=== PATIENT | male | born 1965 | race Caucasian/White ===

== ENCOUNTER 2018-06-17 20:41 | Inpatient (IN) ==
[2018-06-17] MEDS ORDERED: METOCLOPRAMIDE HCL INJ 5 MG/ML 2 ML VIAL IV STA (21:48)
[2018-06-17] MEDS ORDERED: DiphenhydrAMINE HCL 50 MG/ML VIAL IV STA (21:48)
[2018-06-17] MEDS ORDERED: KETOROLAC TROMETHAMINE 15 MG/ML VIAL IV STA (21:48)
[2018-06-17] MEDS ORDERED: SODIUM CHLORIDE 0.9% 1000ML 1,000 ML IV SCH (22:00)
[2018-06-17 22:12] LABS: Basophils # (auto) 0.01 K/uL (0-0.2); Basophils % (auto) 0.2 %; Eosinophils # (auto) 0.02 K/uL (0-0.5); Eosinophils % (auto) 0.4 %; Hematocrit (blood only) 39.9 % (42-52); Hemoglobin 14.1 g/dL (14.0-18.0); Immature Granulocytes # (auto) 0.01 K/uL (0.00-0.02); Immature Granulocytes % (auto) 0.2 %; Lymphocytes # (auto) 0.64 K/uL (1.2-3.4); Lymphocytes % (auto) 12.1 %; Mean Corpuscular Hgb Conc 35.3 g/dL (32-36); Mean Corpuscular Volume 92.1 fL (80-100); Monocytes # (auto) 0.38 K/uL (0.11-0.59); Monocytes % (auto) 7.2 %; Neutrophils # (auto) 4.23 K/uL (1.4-6.5); Neutrophils % (auto) 79.9 %; Platelet Count 142 K/uL (130-400); RDW Coefficient of Variation 12.4 % (11.5-14.5); RDW Standard Deviation 41.9 fL (36.4-46.3); Red Blood Count 4.33 M/uL (4.7-6.1); White Blood Count 5.29 K/uL (4.8-10.8)
[2018-06-17 22:31] LABS: Albumin Level 4.1 gm/dl (3.4-5.0); BUN Creatinine Ratio 12.3 (10-20); Calcium 9.3 mg/dl (8.5-10.1); Creatinine Clr Calc Pharmacy 123.5 ml/min; Est GFR (African American) 109.1; Est GFR (Non-African American) 94.2; Potassium 3.3 mmol/L (3.5-5.1)
[2018-06-17 22:34] LABS: Albumin Globulin Ratio 1.3 (0.9-2); Bilirubin,Total 0.5 mg/dl (0.2-1); Globulin 3.2 gm/dl (2.5-4.0); Total Protein 7.3 gm/dl (6.4-8.2)
[2018-06-17 22:51] LABS: Appearance Urine Clear (Clear); Bacteria Urine Automated Negative (Negative); Bilirubin Urine Negative (Negative); Blood Urine Trace (Negative); Cast Urine Automated 0 /lpf (0-5); Color Urine Yellow; Epithelial Cell Urine Auto 0-5 /lpf (0-5); Glucose Urine UA 3+ (Negative); Ketones Urine 1+ (Negative); Leukocyte Esterase Urine Negative (Negative); Nitrite Urine Negative (Negative); Protein Urine Negative (Negative); RBC Urine Automated 0-4 /hpf (0-4); Specific Gravity Urine 1.029 (1.000-1.030); Urobilinogen Urine Negative (Negative); WBC Urine Automated 0 /hpf (0-5)
[2018-06-17] MEDS ORDERED: IOVERSOL 100ml IV PRN (23:38)
[2018-06-18] MEDS ORDERED: ONDANSETRON INJ 2 MG/ML 2 ML VIAL IV PRN (02:53)
[2018-06-18] MEDS ORDERED: POTASSIUM CHLORIDE 10 MEQ TABCR PO STA (02:53)
[2018-06-18] MEDS ORDERED: GLUCOSE 40% GEL 15 GM TUBE PO PRN (03:00)
[2018-06-18] MEDS ORDERED: CARBOHYDRATES FOR HYPOGLYCEMIA PO PRN (03:00)
[2018-06-18] MEDS ORDERED: GLUCAGON FOR INJ 1 MG VIAL IM PRN (03:00)
[2018-06-18] MEDS ORDERED: GLUCOSE 10 TABS/TUBE PO PRN (03:00)
[2018-06-18] MEDS: HYDROmorphone INJ 0.5 MG/0.5 ML SYR IV PRN ×3 (03:00→15:02)
[2018-06-18] MEDS ORDERED: DEXTROSE 50% 50 ML SYRINGE IV PRN (03:00)
[2018-06-18] MEDS: SODIUM CHLORIDE 0.9% 1000ML 1,000 ML IV SCH ×3 (03:07→18:52)
--- NOTE | 2018-06-18 03:59 | Emergency Department Note ---
History of Present Illness General Chief complaint: Abdominal Pain Stated complaint: STOMACH AND BACK PAIN History of Present Illness Maximum Pain Intensity: 4 This 52-year-old presents to the ER complaining of abdominal pain and back pain Location: Abdomen and back Quality: Achy Severity: Moderate Duration: Past few months Timing: Started a few months ago Context: Pain got worse and patient came in Modifying factors: better with nothing; worse with activity Patient went to the family care doctor and was sent for colonoscopy. This was normal. Patient has an appointment next week to get CAT scan. Pain got worse and patient came in. Patient denies chest pain, dyspnea, fevers, vomiting, diarrhea, urinary problems. Home Medications Home Medications Medication Instructions Recorded Confirmed Type atorvastatin 20 mg PO HS 06/17/18 06/17/18 History empagliflozin [Jardiance] 10 mg PO DAILY 06/17/18 06/17/18 History glipizide 5 mg PO DAILY 06/17/18 06/17/18 History hyoscyamine sulfate 0.125 mg PO DIRECTED PRN 06/17/18 06/17/18 History valsartan-hydrochlorothiazide 1 tab PO DAILY 06/17/18 06/17/18 History Allergies Allergy/AdvReac Type Severity Reaction Status Date / Time Penicillins Allergy Severe Swelling Verified 06/17/18 23:50 of Lip/Tongue/Throat Sulfa (Sulfonamide Allergy Severe Swelling Verified 06/17/18 23:50 Antibiotics) of Lip/Tongue/Throat Torcan AdvReac Intermediate Muscle Pain Uncoded 06/17/18 23:50 Past Med/Surg History Medical History Diabetes Hypertension Surgical History Previous back surgery 2005 Social History Preferred Language: Spanish 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 Beliefs That Will Affect Care: None Current Living Situation: Spouse Other Information That Helps Us Care for You: No Feels Safe at Home: Yes Safety Concerns: Feels Safe At This Time Smoking Status: Unknown if ever smoked Hx Alcohol Use: Yes Hx Substance Use: No Review of Systems All systems reviewed & are unremarkable except as noted in HPI & below Physical Exam Vital Signs Vital Signs - 24 hr 06/17/18 21:06 06/17/18 22:28 06/17/18 23:28 Temperature 36.9 C Temperature Source Oral Sepsis Recent Fever Within 48 Hours No Sepsis New/Unexplained Change in Mental Status No Sepsis Action Taken by Nursing No Action Required Pulse Rate 93 H Pulse Rate [Apical] 74 Pulse Rate [Left Brachial] Pulse Rhythm Regular Pulse Rhythm [Left Brachial] Pulse Strength Normal Pulse Strength [Left Brachial] Respiratory Rate 20 18 Respiratory Effort / Characteristics Non-Labored Spontaneous Non-Labored Respiratory Depth Normal Normal Respiratory Pattern Regular Blood Pressure 178/104 H Blood Pressure [Left Arm] Blood Pressure [Right Arm] 143/74 H Blood Pressure Mean 128 Blood Pressure Mean [Left Arm] Blood Pressure Mean [Right Arm] 97 Blood Pressure Position Sitting Blood Pressure Position [Left Arm] Pulse Oximetry 97 97 98 Oxygen Delivery Method Room Air Room Air Room Air 06/18/18 00:42 06/18/18 02:11 06/18/18 03:21 Temperature 37.3 C Temperature Source Oral Sepsis Recent Fever Within 48 Hours Sepsis New/Unexplained Change in Mental Status Sepsis Action Taken by Nursing Pulse Rate Pulse Rate [Apical] 77 74 Pulse Rate [Left Brachial] 79 Pulse Rhythm Pulse Rhythm [Left Brachial] Regular Pulse Strength Pulse Strength [Left Brachial] Normal Respiratory Rate 18 18 16 Respiratory Effort / Characteristics Non-Labored Non-Labored Non-Labored Spontaneous Respiratory Depth Normal Normal Normal Respiratory Pattern Regular Blood Pressure Blood Pressure [Left Arm] 148/90 H Blood Pressure [Right Arm] 142/75 H 134/80 Blood Pressure Mean Blood Pressure Mean [Left Arm] 109 Blood Pressure Mean [Right Arm] 97 98 Blood Pressure Position Blood Pressure Position [Left Arm] Sitting Pulse Oximetry 97 98 98 Oxygen Delivery Method Room Air Room Air Room Air VITALS: Vitals are noted on the nurse's note and reviewed by myself. Vital signs stable. GENERAL: Pleasant male, in no acute distress, nondiaphoretic, well-developed well-nourished. SKIN: The skin was without rashes, erythema, edema, or bruising. There is no tenting of the skin. Capillary reflex less than 2 seconds. HEAD: Normocephalic atraumatic. EARS: External auditory canals clear, tympanic membranes pearly zepeda without erythema or effusion bilaterally. EYES: Pupils equal round and reactive to light and accommodation. Conjunctivae without injection, sclerae without icterus. Extraocular movements intact. NOSE: Patent, turbinates without inflammation or discharge. MOUTH: Mucous membranes moist. Pharynx without erythema or exudate. Uvula midline. Airway patent. Tongue does not deviate. NECK: Supple without nuchal rigidity. No lymphadenopathy. No thyromegaly. Cervical spine is nontender. No JVD. HEART: Regular rate and rhythm without murmurs gallops or rubs. LUNGS: Clear to auscultation bilaterally without wheezes, rales or rhonchi. No retractions or accessory muscle use. ABDOMEN: Positive bowel sounds x 4. Normal tympanic percussion. Soft, tender to palpation mid abdomen, without masses or organomegaly. Frazier sign negative. No guarding or rebound tenderness. No CVA tenderness MUSCULOSKELETAL: No muscle atrophy, erythema, or edema noted. NEURO: Patient was alert and oriented to person place and time. Normal sensation to light and sharp touch. No focal neurological deficits. Course Administered Medications Hydromorphone HCl (Dilaudid) 0.5 mg IV Q3H PRN PRN Reason: Pain Stop: 07/02/18 02:52 Last Admin: 06/18/18 03:00 Dose: 0.5 mg Documented by: [id number] Sodium Chloride (Nss 1000ml) 1,000 mls @ 125 mls/hr IV .Q8H DESTINEY Stop: 07/18/18 02:52 Last Admin: 06/18/18 03:07 Dose: 125 mls/hr Documented by: [id number] Discontinued Medications Diphenhydramine HCl (Benadryl) 25 mg IV NOW STA Stop: 06/17/18 21:49 Last Admin: 06/17/18 22:19 Dose: 25 mg Documented by: [id number] Sodium Chloride (Nss 1000ml) 1,000 mls @ 999 mls/hr IV .Q1H1M DESTINEY Stop: 06/17/18 23:00 Last Infusion: 06/17/18 23:26 Dose: 0 mls/hr Documented by: [id number] Admin: 06/17/18 22:19 Dose: 999 mls/hr Documented by: [id number] Ioversol (Optiray 320 100ml) 94 ml IV ONCE PRN PRN Reason: Interaction Checking Stop: 06/21/18 23:37 Last Admin: 06/17/18 23:38 Dose: 94 ml Documented by: [id number] Ketorolac Tromethamine (Toradol) 10 mg IV NOW STA Stop: 06/17/18 21:49 Last Admin: 06/17/18 22:19 Dose: 10 mg Documented by: [id number] Metoclopramide HCl (Reglan) 10 mg IV NOW STA Stop: 06/17/18 21:49 Last Admin: 06/17/18 22:19 Dose: 10 mg Documented by: [id number] Potassium Chloride (Klor-Con M10) 20 meq PO NOW STA Stop: 06/18/18 02:54 Last Admin: 06/18/18 03:07 Dose: 20 meq Documented by: [id number] Medical Decision Making Medical Records Attestation: I reviewed the patient's medical records. Home Medications Current Medication List: was personally reviewed by me Laboratory Data Attestation: I reviewed the patient's lab results. Result diagrams: 06/17/18 22:03 06/17/18 22:03 Lab Results 06/17/18 06/17/18 06/17/18 Range/Units 22:03 22:03 22:05 WBC 5.29 (4.8-10.8) K/uL RBC 4.33 L (4.7-6.1) M/uL Hgb 14.1 (14.0-18.0) g/dL Hct 39.9 L (42-52) % MCV 92.1 (80-100) fL MCH 32.6 (25-34) pg MCHC 35.3 (32-36) g/dL RDW Std Deviation 41.9 (36.4-46.3) fL RDW Coeff of Lilia 12.4 (11.5-14.5) % Plt Count 142 (130-400) K/uL MPV 10.0 (7.4-10.4) fL Immature Gran % (Auto) 0.2 % Neut % (Auto) 79.9 % Lymph % (Auto) 12.1 % [place] % (Auto) 7.2 % Eos % (Auto) 0.4 % Baso % (Auto) 0.2 % Immature Gran # (Auto) 0.01 (0.00-0.02) K/uL Neut # (Auto) 4.23 (1.4-6.5) K/uL Lymph # (Auto) 0.64 L (1.2-3.4) K/uL Valencia # (Auto) 0.38 (0.11-0.59) K/uL Eos # (Auto) 0.02 (0-0.5) K/uL Baso # (Auto) 0.01 (0-0.2) K/uL Sodium 137 (136-145) mmol/L Potassium 3.3 L (3.5-5.1) mmol/L Chloride 103 (98-107) mmol/L Carbon Dioxide 24 (21-32) mmol/L Anion Gap 10.0 (3-11) BUN 12 (7-18) mg/dl Creatinine 0.94 (0.6-1.4) mg/dl Est Cr Clr Drug Dosing 123.5 ml/min Est GFR ( Amer) 109.1 Est GFR (Non-Af Amer) 94.2 BUN/Creatinine Ratio 12.3 (10-20) Glucose 147 H (70-99) mg/dl Calcium 9.3 (8.5-10.1) mg/dl Magnesium 2.0 (1.8-2.4) mg/dl Total Bilirubin 0.5 (0.2-1) mg/dl AST 30 (15-37) U/L ALT 52 (12-78) U/L Alkaline Phosphatase 96 (45-117) U/L Total Creatine Kinase 497 H (39-308) U/L Total Protein 7.3 (6.4-8.2) gm/dl Albumin 4.1 (3.4-5.0) gm/dl Globulin 3.2 (2.5-4.0) gm/dl Albumin/Globulin Ratio 1.3 (0.9-2) Lipase 284 (73-393) U/L Urine Color Yellow Urine Appearance Clear (Clear) Urine pH 5.0 (4.5-7.5) Ur Specific [place] 1.029 (1.000-1.030) Urine Protein Negative (Negative) Urine Glucose (UA) 3+ H (Negative) Urine Ketones 1+ H (Negative) Urine Blood Trace H (Negative) Urine Nitrite Negative (Negative) Urine Bilirubin Negative (Negative) Urine Urobilinogen Negative (Negative) Ur Leukocyte Esterase Negative (Negative) Urine WBC (Auto) 0 (0-5) /hpf Urine RBC (Auto) 0-4 (0-4) /hpf U Hyaline Cast (Auto) 0 (0-5) /lpf U Epithel Cells (Auto) 0-5 (0-5) /lpf Urine Bacteria (Auto) Negative (Negative) Ethyl Alcohol mg/dL (0-3) mg/dl 06/17/18 Range/Units 22:47 WBC (4.8-10.8) K/uL RBC (4.7-6.1) M/uL Hgb (14.0-18.0) g/dL Hct (42-52) % MCV (80-100) fL MCH (25-34) pg MCHC (32-36) g/dL RDW Std Deviation (36.4-46.3) fL RDW Coeff of Lilia (11.5-14.5) % Plt Count (130-400) K/uL MPV (7.4-10.4) fL Immature Gran % (Auto) % Neut % (Auto) % Lymph % (Auto) % [place] % (Auto) % Eos % (Auto) % Baso % (Auto) % Immature Gran # (Auto) (0.00-0.02) K/uL Neut # (Auto) (1.4-6.5) K/uL Lymph # (Auto) (1.2-3.4) K/uL Valencia # (Auto) (0.11-0.59) K/uL Eos # (Auto) (0-0.5) K/uL Baso # (Auto) (0-0.2) K/uL Sodium (136-145) mmol/L Potassium (3.5-5.1) mmol/L Chloride (98-107) mmol/L Carbon Dioxide (21-32) mmol/L Anion Gap (3-11) BUN (7-18) mg/dl Creatinine (0.6-1.4) mg/dl Est Cr Clr Drug Dosing ml/min Est GFR ( Amer) Est GFR (Non-Af Amer) BUN/Creatinine Ratio (10-20) Glucose (70-99) mg/dl Calcium (8.5-10.1) mg/dl Magnesium (1.8-2.4) mg/dl Total Bilirubin (0.2-1) mg/dl AST (15-37) U/L ALT (12-78) U/L Alkaline Phosphatase (45-117) U/L Total Creatine Kinase (39-308) U/L Total Protein (6.4-8.2) gm/dl Albumin (3.4-5.0) gm/dl Globulin (2.5-4.0) gm/dl Albumin/Globulin Ratio (0.9-2) Lipase (73-393) U/L Urine Color Urine Appearance (Clear) Urine pH (4.5-7.5) Ur Specific [place] (1.000-1.030) Urine Protein (Negative) Urine Glucose (UA) (Negative) Urine Ketones (Negative) Urine Blood (Negative) Urine Nitrite (Negative) Urine Bilirubin (Negative) Urine Urobilinogen (Negative) Ur Leukocyte Esterase (Negative) Urine WBC (Auto) (0-5) /hpf Urine RBC (Auto) (0-4) /hpf U Hyaline Cast (Auto) (0-5) /lpf U Epithel Cells (Auto) (0-5) /lpf Urine Bacteria (Auto) (Negative) Ethyl Alcohol mg/dL < 3.0 (0-3) mg/dl Imaging Data Attestation: I personally reviewed and interpreted this imaging study as follo ws: [facility] Narrative Prior records/ancillary studies reviewed. Triage Nursing notes reviewed. Additional history obtained from family. The patient's history was concerning for abdominal pain. Differential diagnosis: Etiologies such as appendicitis, diverticulitis, PUD, biliary pathology, UTI, pancreatitis, obstruction, mesenteric ischemia, aortic pathology, infections, inflammatory bowel disease, renal colic, as well as others were entertained. Physical examination findings: As above. ER treatment provided: IV fluids, Reglan, Benadryl, Toradol On reassessment the patient felt better. Diagnostics interpreted by me: The labs revealed stable H&H. Normal lipase Imaging studies: CT ABDOMEN & PELVIS With Contrast: Irregular low attenuation in the pancreatic body measuring approximately 4.5 x 4.7 cm, suspicious for mass versus pancreatitis related fluid collection. Atrophic appearing pancreatic tail. There is associated attenuation of the portal venous confluence. Mild nonspecific mesenteric and retroperitoneal stranding and trace fluid. Multiple hazy nodular densities most prominent at the anterior abdomen, concern ing for malignant etiology. Heterogeneous liver parenchyma with mild perihepatic stranding/fluid. Fluid in small bowel loops, possible enteritis in the appropriate clinical setting. Areas of mild colonic wall thickening may be related to underdistention. Normal caliber appendix. Umbilical hernia containing fat with mild stranding/fluid. Mild splenomegaly Small hydroceles. Bibasilar atelectatic changes. Radiologist: Natividad Hahn M.D. Consultation: A consultation was placed with the hospitalist. The case was discussed and diagnostics were reviewed. The patient was evaluated in the ER for further treatment. Exam and history seem consistent with pancreatic mass concerning for cancer. Pa faizan is agreeable to treatment plan of admission. Medicine was consulted. Lipase was normal. Stable H&H. By the evaluation outlined above emergent etiologies such as appendicitis, diverticulitis, PUD, biliary pathology, UTI, pancreatitis, obstruction, mesenteric ischemia, aortic pathology, infections, inflammatory bowel disease, renal colic, as well as others were deemed relatively unlikely. The pt informed about the findings as listed above. All questions were answered and pleased with the treatment. Case reviewed with my attending The chart was completed utilizing [employer] Speech voice recognition software. Grammatical errors, random word insertions, pronoun errors, and incomplete sentences are an occassional consequence of this system due to software limitations, ambient noise, and hardware issues. Any formal questions or concerns about the content, text, or information contained within the body of this dictation should be directly addressed to the physician assistant kitchen manager for clarification. Impression & Plan Mass of pancreas Discharge Plan Visit Data *Final* Discharge Date/Time: 06/18/18 02:27 Chief Complaint: Abdominal Pain Stated Complaint: STOMACH AND BACK PAIN ED Provider: [facility] Midlevel Provider: Tierney Fan Discharge Problem: Mass of pancreas Patient Disposition: Admitted As Inpatient Discharge Instructions Interventions: ED Discharge Assessment Last Done: 06/18/18 02:27
[2018-06-18] MEDS: INSULIN ASPART 100 UNITS/ML 3 ML PEN SC SCH ×4 (06:11→20:21)
--- NOTE | 2018-06-18 06:44 | CT Scan Report ---
CT abd pelvis IV con only CT DOSE: 1111.25 mGy.cm HISTORY: Pain. Nausea. mid abd pain TECHNIQUE: Multiaxial CT images of the abdomen and pelvis were performed following the use of intrave nous contrast. A dose lowering technique was utilized adhering to the principles of ALARA. COMPARISON STUDY: None. FINDINGS: Lung bases are clear.. Liver and spleen are uniform. There is an irregular mass within the mid pancreatic body measuring 4.5 x 5.0 cm. This is suspect for neoplasm versus focal pancreatitis. Several mildly thickened loops of small bowel anterior aspect of the superior central abdominal regio n. Kidneys negative for hydronephrosis. No abnormal renal calcifications are present. Bowel pattern is nonobstructive. Findings of mild chronic descending and proximal sigmoid diverticulo sis. IMPRESSION: 1. Mid pancreatic infiltrative mass versus focal mid pancreatic body pancreatitis. 2. Probable reactive thickening of several surrounding loops of small bowel versus superimposed enter itis. 3. All major arterial structures appear patent. 4. Several omental nodes which may be reactive. Bladder is midline. 5. Diagnostic considerations include pancreatic neoplasm versus focal mid body pancreatitis. The above report was generated using voice recognition software. It may contain grammatical, syntax or spelling errors. Electronically signed by: Mich Hanna M.D. 06/18/2018 6:42 AM
[2018-06-18 07:39] LABS: Basophils # (auto) 0.01 K/uL (0-0.2); Basophils % (auto) 0.3 %; Eosinophils # (auto) 0.01 K/uL (0-0.5); Eosinophils % (auto) 0.3 %; Hematocrit (blood only) 40.3 % (42-52); Hemoglobin 13.9 g/dL (14.0-18.0); Immature Granulocytes # (auto) 0.01 K/uL (0.00-0.02); Immature Granulocytes % (auto) 0.3 %; Lymphocytes # (auto) 0.56 K/uL (1.2-3.4); Lymphocytes % (auto) 15.4 %; Mean Corpuscular Hgb Conc 34.5 g/dL (32-36); Mean Corpuscular Volume 94.2 fL (80-100); Mean Platelet Volume 9.9 fL (7.4-10.4); Monocytes # (auto) 0.29 K/uL (0.11-0.59); Neutrophils # (auto) 2.76 K/uL (1.4-6.5); Neutrophils % (auto) 75.7 %; Platelet Count 128 K/uL (130-400); RDW Coefficient of Variation 12.8 % (11.5-14.5); RDW Standard Deviation 43.5 fL (36.4-46.3); Red Blood Count 4.28 M/uL (4.7-6.1); White Blood Count 3.64 K/uL (4.8-10.8)
[2018-06-18 08:05] LABS: Estimated Average Glucose 171 mg/dl; Hemoglobin A1C 7.6 % (4.5-5.6)
[2018-06-18 08:10] LABS: BUN Creatinine Ratio 11.2 (10-20); Calcium 8.7 mg/dl (8.5-10.1); Creatinine Clr Calc Pharmacy 127.7 ml/min; Est GFR (Non-African American) 99.2; Potassium 3.3 mmol/L (3.5-5.1)
--- NOTE | 2018-06-18 08:57 | History and Physical Report ---
DATE OF ADMISSION: 06/18/2018 CHIEF COMPLAINT: Abdominal pain. HISTORY OF PRESENT ILLNESS: This is a 52-year-old male with past medical history significant for hyperlipidemia, diabetes, hypertension, presents with severe abdominal pain. He states his abdominal pain going on for last couple of months. It was thought to be from his diabetic medications, but it was not getting better. He came to the ER today. Imaging studies showed some pancreatic mass and anterior abdominal nodular densities. With the pain medication, the pain is controlled now. Denies any nausea, vomiting. No diarrhea, no constipation. No melena or hematochezia. Normal bladder movements. No hematuria. Denies any headaches. No earache. No blurred vision, no runny nose, no sore throat, no difficulty swallowing. Appetite is okay. No recent weight gain, weight loss. No night sweating, no chest pain, no shortness of breath, no cough, no fever, no chills. No swelling of the extremities, no rash. Currently resting comfortably and hemodynamically stable. ALLERGIES: PENICILLIN, SULFA ANTIBIOTICS AND TORCAN. PAST MEDICAL HISTORY: As mentioned above. PAST SURGICAL HISTORY: Colonoscopy, spine surgery. MEDICATIONS: The patient is on Levsin 0.125 mg 1 tablet t.i.d., Bentyl 10 mg p.o. q.4 hours p.r.n., Jardiance 10 mg p.o. daily, glipizide 5 mg b.i.d., Lipitor 20 mg p.o. daily, valsartan/hydrochlorothiazide 160/25 mg 1 tablet daily. FAMILY HISTORY: No family history on file. SOCIAL HISTORY: . No smoking, alcohol, social drinker. No drug use. REVIEW OF SYMPTOMS: As per HPI. Rest of review of symptoms negative. PHYSICAL EXAMINATION: GENERAL: The patient is moderate built. The patient is obese, not in acute distress. VITAL SIGNS: Temperature 36.9, pulse 74, respiratory rate 18, blood pressure 134/80, oxygen 98% room air. HEENT: No pallor, no icterus. Pupils equal, round, and reactive to light. NECK: No JVD. No neck masses, no carotid bruit. CARDIOVASCULAR: S1, S2 heard, regular rate and rhythm, no murmur, no gallop. RESPIRATORY SYSTEM: Normal AP diameter. No accessory muscle use. No wheezing, no crackles. ABDOMEN: Soft, bowel sounds present. Mild epigastric discomfort. No guarding, no rigidity. No distention. CENTRAL NERVOUS SYSTEM: Cranial nerves II-XII grossly intact. Nonfocal. EXTREMITIES: No edema, erythema. LABORATORY DATA: WBC 5.2, hemoglobin 14.1, hematocrit 39.9, platelets 142. Sodium 137, potassium 3.3, chloride 103, bicarbonate 24, BUN 12, creatinine 0.9, serum glucose 147, calcium 9.3, magnesium 2, total bilirubin 0.5, AST 30, ALT 52, alkaline phosphatase 96, total creatinine kinase 497. Lipase 284. Urinalysis positive for ketones, . CT of the abdomen and pelvis,Mid pancreatic infiltrative mass vs focal mid pancreatic body pancreatitis Several omental nodes which may be reactive ASSESSMENT AND PLAN: This is a 52-year-old male who presents with abdominal pain. 1. Abdominal pain, going on for last 2 months CAT scan showing suspicious for mass versus pancreatic mid body pancreatitis. Omental nodes could be reactive. We will admit to medical floor. Pain control, n.p.o., IV fluids. Consult GI and also consult surgery for further recommendations for any biopsy. 2. Diabetes. Hold his home medication.Place on ISS. Currently, we will keep him n.p.o. for procedures. 3. Hypertension. Continue his valsartan/hydrochlorothiazide and monitor his blood pressure. 4. Hyperlipidemia. Holding statin for now. 5. Deep venous thrombosis prophylaxis, SCDs. DISPOSITION: Admit to medical floor. Level 1 full code. MTDD
[2018-06-18] MEDS: hydroCHLOROthiazide 25 MG TAB PO SCH (08:58)
[2018-06-18] MEDS: VALSARTAN 80 MG TAB PO SCH (08:58)
[2018-06-18] MEDS: ACETAMINOPHEN 325 MG TAB PO PRN ×2 (10:33→18:33)
--- NOTE | 2018-06-18 11:22 | Gastrointestinal Consultation ---
Date of Consultation June 18, 2018 Assessment & Plan (1) Mass of pancreas: 52 year old male w/ upper abdominal and back pain x 1 month, CT completed through the ED concerning for infiltrative mass versus focal mid pancreatic body pancreatitis. He has normal LFTs and lipase. DDX discussed, all questions answered - MRI abd w/ MRCP sequence today - Can have diet after MRCP - Pending results will arrange IP vs OP EUS w/ FNA - Analgesia PRN - Antiemeics PRN - Consider LR as maintenace fluids Thank you for allowing us to participate in the care of this patient. Please call with any acute changes, questions or concerns. Please see addendum below with additional recommendation from my supervising physician. Present on Admission?: No Supervising Physician Co-Signing Physician Notes I have seen and examined the patient and discussed the management with TANIKA Chairez. I agree with her assessment and plan in its entirety. History of Present Illness Reason for Consultation: ?panc mass Requesting Physician: Manuela Attending Physician: Norbert Roy MD History of Present Illness 52 year old male with history of newly diagnosed T2DM, HTN, dyslipidemia who presented to the Ed for worsening abdominal pain. Pt was seen and evaluated, chart reviewed. at bedside. Has had upper abdominal apin and back pain x 1 month. Undergoing OP GI workup which was inconclusive. Explains pain as constant. Mild in the AM. As the day progressive the pain is more severe. Explained as a pressure but sharp. no nausea, vomiting. No change in appetite. No change in bowels. No weightloss Was referred to GI - evaluated 06/14 who had planned for a CT scan. On arrival he was afebrile, without leukocytosis. H&H stable w/ normal PLT count. LFTs and lipase were unremarkable. CT: Mid pancreatic infiltrative mass versus focal mid pancreatic body pancreatitis.Probable reactive thickening of several surrounding loops of small bowel versus superimposed enteritis. All major arterial structures appear patent.Several omental nodes which may be reactive. Bladder is midline. Diagnostic considerations include pancreatic neoplasm versus focal mid body pancreatitis. EGD none Colonoscopy: hemorrhiods otherwise negative Allergies Allergy/AdvReac Type Severity Reaction Status Date / Time Penicillins Allergy Severe Swelling Verified 06/17/18 23:50 of Lip/Tongue/Throat Sulfa (Sulfonamide Allergy Severe Swelling Verified 06/17/18 23:50 Antibiotics) of Lip/Tongue/Throat Torcan AdvReac Intermediate Muscle Pain Uncoded 06/17/18 23:50 Home Medications Home Medications Medication Instructions Recorded Confirmed Type atorvastatin 20 mg PO HS 06/17/18 06/17/18 History empagliflozin [Jardiance] 10 mg PO DAILY 06/17/18 06/17/18 History glipizide 5 mg PO DAILY 06/17/18 06/17/18 History hyoscyamine sulfate 0.125 mg PO DIRECTED PRN 06/17/18 06/17/18 History valsartan-hydrochlorothiazide 1 tab PO DAILY 06/17/18 06/17/18 History Patient History Medical History Diabetes Hypertension Surgical History Previous back surgery 2005 Social History Preferred Language: Jordanian Machine Cage Maker Required: No Beliefs That Will Affect Care: None Current Living Situation: Spouse Other Information That Helps Us Care for You: No Feels Safe at Home: Yes Safety Concerns: Feels Safe At This Time Smoking Status: Unknown if ever smoked Hx Alcohol Use: Yes Hx Substance Use: No Review of Systems Constitutional: no fever, no body aches, no weakness and no weight loss Respiratory: no cough, no dyspnea, no pain on inspiration and no wheezing Cardiovascular: no chest pain, no radiating jaw, neck or arm pain, no dyspnea on exertion and no palpitations Gastrointestinal: + abdominal pain; no belching, no early satiety, no heartburn, no nausea, no vomiting, no coffee ground emesis, no hematemesis, no dysphagia, no cramping, no change in bowel habits and no melena Physical Exam Constitutional: WD/WN, vitals as above well developed; no acute distress Respiratory: normal respiratory effort, lungs clear to auscultation Cardiovascular: RRR, no murmur, no edema Gastrointestinal (Abdomen): Percussion/Palpation: + abdomen tender and abdomen soft; no guarding, abdomen not rigid and no abdominal mass Skin: no rashes, warm and dry Results & Data Vital Signs (Past 12 Hours) Vital Signs Temp Pulse Pulse Resp BP BP Pulse Ox 06/18/18 07:10 37.1 C 82 18 128/76 98 06/18/18 03:21 37.3 C 79 16 148/90 H 98 06/18/18 02:11 74 18 134/80 98 06/18/18 00:42 77 18 142/75 H 97 06/17/18 23:28 74 18 143/74 H 98 Laboratory Results 06/18/18 06/18/18 06/18/18 Range/Units 07:15 07:15 07:15 WBC 3.64 L (4.8-10.8) K/uL RBC 4.28 L (4.7-6.1) M/uL Hgb 13.9 L (14.0-18.0) g/dL Hct 40.3 L (42-52) % MCV 94.2 (80-100) fL MCH 32.5 (25-34) pg MCHC 34.5 (32-36) g/dL RDW Std Deviation 43.5 (36.4-46.3) fL RDW Coeff of Lilia 12.8 (11.5-14.5) % Plt Count 128 L (130-400) K/uL MPV 9.9 (7.4-10.4) fL Immature Gran % (Auto) 0.3 % Neut % (Auto) 75.7 % Lymph % (Auto) 15.4 % [place] % (Auto) 8.0 % Eos % (Auto) 0.3 % Baso % (Auto) 0.3 % Immature Gran # (Auto) 0.01 (0.00-0.02) K/uL Neut # (Auto) 2.76 (1.4-6.5) K/uL Lymph # (Auto) 0.56 L (1.2-3.4) K/uL [place] # (Auto) 0.29 (0.11-0.59) K/uL Eos # (Auto) 0.01 (0-0.5) K/uL Baso # (Auto) 0.01 (0-0.2) K/uL Sodium (136-145) mmol/L Potassium (3.5-5.1) mmol/L Chloride (98-107) mmol/L Carbon Dioxide (21-32) mmol/L Anion Gap (3-11) BUN (7-18) mg/dl Creatinine (0.6-1.4) mg/dl Est Cr Clr Drug Dosing ml/min Est GFR ( Amer) Est GFR (Non-Af Amer) BUN/Creatinine Ratio (10-20) Glucose (70-99) mg/dl POC Glucose (70-99) Estimat Average Glucose 171 mg/dl Hemoglobin A1c 7.6 H (4.5-5.6) % Calcium (8.5-10.1) mg/dl Magnesium 2.1 (1.8-2.4) mg/dl Total Bilirubin (0.2-1) mg/dl AST (15-37) U/L ALT (12-78) U/L Alkaline Phosphatase (45-117) U/L Total Creatine Kinase (39-308) U/L Total Protein (6.4-8.2) gm/dl Albumin (3.4-5.0) gm/dl Globulin (2.5-4.0) gm/dl Albumin/Globulin Ratio (0.9-2) Lipase (73-393) U/L Urine Color Urine Appearance (Clear) Urine pH (4.5-7.5) Ur Specific [place] (1.000-1.030) Urine Protein (Negative) Urine Glucose (UA) (Negative) Urine Ketones (Negative) Urine Blood (Negative) Urine Nitrite (Negative) Urine Bilirubin (Negative) Urine Urobilinogen (Negative) Ur Leukocyte Esterase (Negative) Urine WBC (Auto) (0-5) /hpf Urine RBC (Auto) (0-4) /hpf U Hyaline Cast (Auto) (0-5) /lpf U Epithel Cells (Auto) (0-5) /lpf Urine Bacteria (Auto) (Negative) Ethyl Alcohol mg/dL (0-3) mg/dl 06/18/18 06/18/18 06/17/18 Range/Units 07:15 06:10 22:47 WBC (4.8-10.8) K/uL RBC (4.7-6.1) M/uL Hgb (14.0-18.0) g/dL Hct (42-52) % MCV (80-100) fL MCH (25-34) pg MCHC (32-36) g/dL RDW Std Deviation (36.4-46.3) fL RDW Coeff of Lilia (11.5-14.5) % Plt Count (130-400) K/uL MPV (7.4-10.4) fL Immature Gran % (Auto) % Neut % (Auto) % Lymph % (Auto) % [place] % (Auto) % Eos % (Auto) % Baso % (Auto) % Immature Gran # (Auto) (0.00-0.02) K/uL Neut # (Auto) (1.4-6.5) K/uL Lymph # (Auto) (1.2-3.4) K/uL [place] # (Auto) (0.11-0.59) K/uL Eos # (Auto) (0-0.5) K/uL Baso # (Auto) (0-0.2) K/uL Sodium 138 (136-145) mmol/L Potassium 3.3 L (3.5-5.1) mmol/L Chloride 107 (98-107) mmol/L Carbon Dioxide 23 (21-32) mmol/L Anion Gap 8.0 (3-11) BUN 10 (7-18) mg/dl Creatinine 0.90 (0.6-1.4) mg/dl Est Cr Clr Drug Dosing 127.7 ml/min Est GFR ( Amer) 115.0 Est GFR (Non-Af Amer) 99.2 BUN/Creatinine Ratio 11.2 (10-20) Glucose 115 H (70-99) mg/dl POC Glucose 125 H (70-99) Estimat Average Glucose mg/dl Hemoglobin A1c (4.5-5.6) % Calcium 8.7 (8.5-10.1) mg/dl Magnesium (1.8-2.4) mg/dl Total Bilirubin (0.2-1) mg/dl AST (15-37) U/L ALT (12-78) U/L Alkaline Phosphatase (45-117) U/L Total Creatine Kinase (39-308) U/L Total Protein (6.4-8.2) gm/dl Albumin (3.4-5.0) gm/dl Globulin (2.5-4.0) gm/dl Albumin/Globulin Ratio (0.9-2) Lipase (73-393) U/L Urine Color Urine Appearance (Clear) Urine pH (4.5-7.5) Ur Specific [place] (1.000-1.030) Urine Protein (Negative) Urine Glucose (UA) (Negative) Urine Ketones (Negative) Urine Blood (Negative) Urine Nitrite (Negative) Urine Bilirubin (Negative) Urine Urobilinogen (Negative) Ur Leukocyte Esterase (Negative) Urine WBC (Auto) (0-5) /hpf Urine RBC (Auto) (0-4) /hpf U Hyaline Cast (Auto) (0-5) /lpf U Epithel Cells (Auto) (0-5) /lpf Urine Bacteria (Auto) (Negative) Ethyl Alcohol mg/dL < 3.0 (0-3) mg/dl 06/17/18 06/17/18 06/17/18 Range/Units 22:05 22:03 22:03 WBC 5.29 (4.8-10.8) K/uL RBC 4.33 L (4.7-6.1) M/uL Hgb 14.1 (14.0-18.0) g/dL Hct 39.9 L (42-52) % MCV 92.1 (80-100) fL MCH 32.6 (25-34) pg MCHC 35.3 (32-36) g/dL RDW Std Deviation 41.9 (36.4-46.3) fL RDW Coeff of Lilia 12.4 (11.5-14.5) % Plt Count 142 (130-400) K/uL MPV 10.0 (7.4-10.4) fL Immature Gran % (Auto) 0.2 % Neut % (Auto) 79.9 % Lymph % (Auto) 12.1 % [place] % (Auto) 7.2 % Eos % (Auto) 0.4 % Baso % (Auto) 0.2 % Immature Gran # (Auto) 0.01 (0.00-0.02) K/uL Neut # (Auto) 4.23 (1.4-6.5) K/uL Lymph # (Auto) 0.64 L (1.2-3.4) K/uL [place] # (Auto) 0.38 (0.11-0.59) K/uL Eos # (Auto) 0.02 (0-0.5) K/uL Baso # (Auto) 0.01 (0-0.2) K/uL Sodium 137 (136-145) mmol/L Potassium 3.3 L (3.5-5.1) mmol/L Chloride 103 (98-107) mmol/L Carbon Dioxide 24 (21-32) mmol/L Anion Gap 10.0 (3-11) BUN 12 (7-18) mg/dl Creatinine 0.94 (0.6-1.4) mg/dl Est Cr Clr Drug Dosing 123.5 ml/min Est GFR ( Amer) 109.1 Est GFR (Non-Af Amer) 94.2 BUN/Creatinine Ratio 12.3 (10-20) Glucose 147 H (70-99) mg/dl POC Glucose (70-99) Estimat Average Glucose mg/dl Hemoglobin A1c (4.5-5.6) % Calcium 9.3 (8.5-10.1) mg/dl Magnesium 2.0 (1.8-2.4) mg/dl Total Bilirubin 0.5 (0.2-1) mg/dl AST 30 (15-37) U/L ALT 52 (12-78) U/L Alkaline Phosphatase 96 (45-117) U/L Total Creatine Kinase 497 H (39-308) U/L Total Protein 7.3 (6.4-8.2) gm/dl Albumin 4.1 (3.4-5.0) gm/dl Globulin 3.2 (2.5-4.0) gm/dl Albumin/Globulin Ratio 1.3 (0.9-2) Lipase 284 (73-393) U/L Urine Color Yellow Urine Appearance Clear (Clear) Urine pH 5.0 (4.5-7.5) Ur Specific [place] 1.029 (1.000-1.030) Urine Protein Negative (Negative) Urine Glucose (UA) 3+ H (Negative) Urine Ketones 1+ H (Negative) Urine Blood Trace H (Negative) Urine Nitrite Negative (Negative) Urine Bilirubin Negative (Negative) Urine Urobilinogen Negative (Negative) Ur Leukocyte Esterase Negative (Negative) Urine WBC (Auto) 0 (0-5) /hpf Urine RBC (Auto) 0-4 (0-4) /hpf U Hyaline Cast (Auto) 0 (0-5) /lpf U Epithel Cells (Auto) 0-5 (0-5) /lpf Urine Bacteria (Auto) Negative (Negative) Ethyl Alcohol mg/dL (0-3) mg/dl
--- NOTE | 2018-06-18 12:37 | Surgery Consultation ---
Date of Consultation June 18, 2018 Assessment & Plan (1) Mass of pancreas: 52 year-old male with 1 month history of upper abdominal pain and back pain that has progressively increased. CT scan showing pancreatic mass vs focal mid pancreatic body pancreatitis. No leukocytosis. LFTS and lipase wnl. afebrile. Abdomen is soft, nondistended, mild tender in the epigastric region/upper abdomen. No peritonitis or rigidity. Plan: Recommend further work-up such as EUS or ERCP +/- biopsy depending on GI recommendations. May need further imaging prior to biopsy to further evaluate Would continue pain management as needed Would continue IV fluids Continue current medical management Keep patient NPO for further work-up Dr. Antunez has seen and examined pt, please see addendum for further recommendations/plan Supervising Physician Co-Signing Physician Notes I have seen and evaluated the patient and reviewed the medical record. I agree with the documentation as provided in this note by Tali Oneal PA-C. 52 yo male with 1 month history of worsening abdominal pain. CT scan shows likely mass of the pancreas. Recommend GI consult to assess for EUS and brushings/biopsies. Will likely require dedicated CT scan with pancreatic protocol. Will eventually likely need evaluation by surgical oncologist, but will await results of further workup. History of Present Illness Reason for Consultation: abdominal mass Requesting Physician: Manuela Attending Physician: Norbert Roy MD History of Present Illness Bolivar is a pleasant 52 year old male with history of T2DM, HTN, dyslipidemia who presented to the emergency room for worsening abdominal pain that started about 1 month ago. Has had upper abdominal pain and back pain x 1 month. Explains pain as constant. Mild in the AM. Pain becomes more severe as the day goes on. Denies any fever, chills, sweats, no nausea, vomiting. No change in appetite. No change in bowels. No weightloss. Had a colonoscopy about 1 month ago. On arrival he was afebrile, without leukocytosis. H&H stable w/ normal PLT count. LFTs and lipase were unremarkable. CT: Mid pancreatic infiltrative mass versus focal mid pancreatic body pancreatitis.Probable reactive thickening of several surrounding loops of small bowel versus superimposed enteritis. All major arterial structures appear patent.Several omental nodes which may be reactive. Bladder is midline. Diagnostic considerations include pancreatic neoplasm versus focal mid body pancreatitis. Allergies Allergy/AdvReac Type Severity Reaction Status Date / Time Penicillins Allergy Severe Swelling Verified 06/17/18 23:50 of Lip/Tongue/Throat Sulfa (Sulfonamide Allergy Severe Swelling Verified 06/17/18 23:50 Antibiotics) of Lip/Tongue/Throat Torcan AdvReac Intermediate Muscle Pain Uncoded 06/17/18 23:50 Home Medications Home Medications Medication Instructions Recorded Confirmed Type atorvastatin 20 mg PO HS 06/17/18 06/17/18 History empagliflozin [Jardiance] 10 mg PO DAILY 06/17/18 06/17/18 History glipizide 5 mg PO DAILY 06/17/18 06/17/18 History hyoscyamine sulfate 0.125 mg PO DIRECTED PRN 06/17/18 06/17/18 History valsartan-hydrochlorothiazide 1 tab PO DAILY 06/17/18 06/17/18 History Patient History Medical History Diabetes Hypertension Surgical History Previous back surgery 2006 Social History Preferred Language: Indonesian Violin 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 Beliefs That Will Affect Care: None Current Living Situation: Spouse Other Information That Helps Us Care for You: No Feels Safe at Home: Yes Safety Concerns: Feels Safe At This Time Smoking Status: Unknown if ever smoked Hx Alcohol Use: Yes Hx Substance Use: No Review of Systems Review of Systems: All systems reviewed & are unremarkable except as noted in HPI & below Physical Exam Constitutional: WD/WN, vitals as above no acute distress Respiratory: normal respiratory effort; no respiratory distress Cardiovascular: RRR, no murmur, no edema Gastrointestinal (Abdomen): Inspection/Auscultation: abdomen normal to inspection; abdomen not distended Percussion/Palpation: + abdomen tender (epigastric and upper abdomen) and abdomen soft; no guarding and abdomen not rigid Skin: no rashes, warm and dry Psychiatric: A+Ox3, euthymic affect Results & Data Vital Signs (Past 12 Hours) Vital Signs Temp Pulse Pulse Resp BP BP Pulse Ox 06/18/18 07:10 37.1 C 82 18 128/76 98 06/18/18 03:21 37.3 C 79 16 148/90 H 98 06/18/18 02:11 74 18 134/80 98 06/18/18 00:42 77 18 142/75 H 97 Laboratory Results 06/18/18 06/18/18 06/18/18 Range/Units 12:12 07:15 07:15 WBC (4.8-10.8) K/uL RBC (4.7-6.1) M/uL Hgb (14.0-18.0) g/dL Hct (42-52) % MCV (80-100) fL MCH (25-34) pg MCHC (32-36) g/dL RDW Std Deviation (36.4-46.3) fL RDW Coeff of Lilia (11.5-14.5) % Plt Count (130-400) K/uL MPV (7.4-10.4) fL Immature Gran % (Auto) % Neut % (Auto) % Lymph % (Auto) % [place] % (Auto) % Eos % (Auto) % Baso % (Auto) % Immature Gran # (Auto) (0.00-0.02) K/uL Neut # (Auto) (1.4-6.5) K/uL Lymph # (Auto) (1.2-3.4) K/uL [place] # (Auto) (0.11-0.59) K/uL Eos # (Auto) (0-0.5) K/uL Baso # (Auto) (0-0.2) K/uL Sodium (136-145) mmol/L Potassium (3.5-5.1) mmol/L Chloride (98-107) mmol/L Carbon Dioxide (21-32) mmol/L Anion Gap (3-11) BUN (7-18) mg/dl Creatinine (0.6-1.4) mg/dl Est Cr Clr Drug Dosing ml/min Est GFR ( Amer) Est GFR (Non-Af Amer) BUN/Creatinine Ratio (10-20) Glucose (70-99) mg/dl POC Glucose 117 H (70-99) Estimat Average Glucose 171 mg/dl Hemoglobin A1c 7.6 H (4.5-5.6) % Calcium (8.5-10.1) mg/dl Magnesium 2.1 (1.8-2.4) mg/dl Total Bilirubin (0.2-1) mg/dl AST (15-37) U/L ALT (12-78) U/L Alkaline Phosphatase (45-117) U/L Total Creatine Kinase (39-308) U/L Total Protein (6.4-8.2) gm/dl Albumin (3.4-5.0) gm/dl Globulin (2.5-4.0) gm/dl Albumin/Globulin Ratio (0.9-2) Lipase (73-393) U/L Urine Color Urine Appearance (Clear) Urine pH (4.5-7.5) Ur Specific [place] (1.000-1.030) Urine Protein (Negative) Urine Glucose (UA) (Negative) Urine Ketones (Negative) Urine Blood (Negative) Urine Nitrite (Negative) Urine Bilirubin (Negative) Urine Urobilinogen (Negative) Ur Leukocyte Esterase (Negative) Urine WBC (Auto) (0-5) /hpf Urine RBC (Auto) (0-4) /hpf U Hyaline Cast (Auto) (0-5) /lpf U Epithel Cells (Auto) (0-5) /lpf Urine Bacteria (Auto) (Negative) Ethyl Alcohol mg/dL (0-3) mg/dl 06/18/18 06/18/18 06/18/18 Range/Units 07:15 07:15 06:10 WBC 3.64 L (4.8-10.8) K/uL RBC 4.28 L (4.7-6.1) M/uL Hgb 13.9 L (14.0-18.0) g/dL Hct 40.3 L (42-52) % MCV 94.2 (80-100) fL MCH 32.5 (25-34) pg MCHC 34.5 (32-36) g/dL RDW Std Deviation 43.5 (36.4-46.3) fL RDW Coeff of Lilia 12.8 (11.5-14.5) % Plt Count 128 L (130-400) K/uL MPV 9.9 (7.4-10.4) fL Immature Gran % (Auto) 0.3 % Neut % (Auto) 75.7 % Lymph % (Auto) 15.4 % [place] % (Auto) 8.0 % Eos % (Auto) 0.3 % Baso % (Auto) 0.3 % Immature Gran # (Auto) 0.01 (0.00-0.02) K/uL Neut # (Auto) 2.76 (1.4-6.5) K/uL Lymph # (Auto) 0.56 L (1.2-3.4) K/uL [place] # (Auto) 0.29 (0.11-0.59) K/uL Eos # (Auto) 0.01 (0-0.5) K/uL Baso # (Auto) 0.01 (0-0.2) K/uL Sodium 138 (136-145) mmol/L Potassium 3.3 L (3.5-5.1) mmol/L Chloride 107 (98-107) mmol/L Carbon Dioxide 23 (21-32) mmol/L Anion Gap 8.0 (3-11) BUN 10 (7-18) mg/dl Creatinine 0.90 (0.6-1.4) mg/dl Est Cr Clr Drug Dosing 127.7 ml/min Est GFR ( Amer) 115.0 Est GFR (Non-Af Amer) 99.2 BUN/Creatinine Ratio 11.2 (10-20) Glucose 115 H (70-99) mg/dl POC Glucose 125 H (70-99) Estimat Average Glucose mg/dl Hemoglobin A1c (4.5-5.6) % Calcium 8.7 (8.5-10.1) mg/dl Magnesium (1.8-2.4) mg/dl Total Bilirubin (0.2-1) mg/dl AST (15-37) U/L ALT (12-78) U/L Alkaline Phosphatase (45-117) U/L Total Creatine Kinase (39-308) U/L Total Protein (6.4-8.2) gm/dl Albumin (3.4-5.0) gm/dl Globulin (2.5-4.0) gm/dl Albumin/Globulin Ratio (0.9-2) Lipase (73-393) U/L Urine Color Urine Appearance (Clear) Urine pH (4.5-7.5) Ur Specific [place] (1.000-1.030) Urine Protein (Negative) Urine Glucose (UA) (Negative) Urine Ketones (Negative) Urine Blood (Negative) Urine Nitrite (Negative) Urine Bilirubin (Negative) Urine Urobilinogen (Negative) Ur Leukocyte Esterase (Negative) Urine WBC (Auto) (0-5) /hpf Urine RBC (Auto) (0-4) /hpf U Hyaline Cast (Auto) (0-5) /lpf U Epithel Cells (Auto) (0-5) /lpf Urine Bacteria (Auto) (Negative) Ethyl Alcohol mg/dL (0-3) mg/dl 06/17/18 06/17/18 06/17/18 Range/Units 22:47 22:05 22:03 WBC (4.8-10.8) K/uL RBC (4.7-6.1) M/uL Hgb (14.0-18.0) g/dL Hct (42-52) % MCV (80-100) fL MCH (25-34) pg MCHC (32-36) g/dL RDW Std Deviation (36.4-46.3) fL RDW Coeff of Lilia (11.5-14.5) % Plt Count (130-400) K/uL MPV (7.4-10.4) fL Immature Gran % (Auto) % Neut % (Auto) % Lymph % (Auto) % [place] % (Auto) % Eos % (Auto) % Baso % (Auto) % Immature Gran # (Auto) (0.00-0.02) K/uL Neut # (Auto) (1.4-6.5) K/uL Lymph # (Auto) (1.2-3.4) K/uL [place] # (Auto) (0.11-0.59) K/uL Eos # (Auto) (0-0.5) K/uL Baso # (Auto) (0-0.2) K/uL Sodium 137 (136-145) mmol/L Potassium 3.3 L (3.5-5.1) mmol/L Chloride 103 (98-107) mmol/L Carbon Dioxide 24 (21-32) mmol/L Anion Gap 10.0 (3-11) BUN 12 (7-18) mg/dl Creatinine 0.94 (0.6-1.4) mg/dl Est Cr Clr Drug Dosing 123.5 ml/min Est GFR ( Amer) 109.1 Est GFR (Non-Af Amer) 94.2 BUN/Creatinine Ratio 12.3 (10-20) Glucose 147 H (70-99) mg/dl POC Glucose (70-99) Estimat Average Glucose mg/dl Hemoglobin A1c (4.5-5.6) % Calcium 9.3 (8.5-10.1) mg/dl Magnesium 2.0 (1.8-2.4) mg/dl Total Bilirubin 0.5 (0.2-1) mg/dl AST 30 (15-37) U/L ALT 52 (12-78) U/L Alkaline Phosphatase 96 (45-117) U/L Total Creatine Kinase 497 H (39-308) U/L Total Protein 7.3 (6.4-8.2) gm/dl Albumin 4.1 (3.4-5.0) gm/dl Globulin 3.2 (2.5-4.0) gm/dl Albumin/Globulin Ratio 1.3 (0.9-2) Lipase 284 (73-393) U/L Urine Color Yellow Urine Appearance Clear (Clear) Urine pH 5.0 (4.5-7.5) Ur Specific [place] 1.029 (1.000-1.030) Urine Protein Negative (Negative) Urine Glucose (UA) 3+ H (Negative) Urine Ketones 1+ H (Negative) Urine Blood Trace H (Negative) Urine Nitrite Negative (Negative) Urine Bilirubin Negative (Negative) Urine Urobilinogen Negative (Negative) Ur Leukocyte Esterase Negative (Negative) Urine WBC (Auto) 0 (0-5) /hpf Urine RBC (Auto) 0-4 (0-4) /hpf U Hyaline Cast (Auto) 0 (0-5) /lpf U Epithel Cells (Auto) 0-5 (0-5) /lpf Urine Bacteria (Auto) Negative (Negative) Ethyl Alcohol mg/dL < 3.0 (0-3) mg/dl 06/17/18 Range/Units 22:03 WBC 5.29 (4.8-10.8) K/uL RBC 4.33 L (4.7-6.1) M/uL Hgb 14.1 (14.0-18.0) g/dL Hct 39.9 L (42-52) % MCV 92.1 (80-100) fL MCH 32.6 (25-34) pg MCHC 35.3 (32-36) g/dL RDW Std Deviation 41.9 (36.4-46.3) fL RDW Coeff of Lilia 12.4 (11.5-14.5) % Plt Count 142 (130-400) K/uL MPV 10.0 (7.4-10.4) fL Immature Gran % (Auto) 0.2 % Neut % (Auto) 79.9 % Lymph % (Auto) 12.1 % [place] % (Auto) 7.2 % Eos % (Auto) 0.4 % Baso % (Auto) 0.2 % Immature Gran # (Auto) 0.01 (0.00-0.02) K/uL Neut # (Auto) 4.23 (1.4-6.5) K/uL Lymph # (Auto) 0.64 L (1.2-3.4) K/uL [place] # (Auto) 0.38 (0.11-0.59) K/uL Eos # (Auto) 0.02 (0-0.5) K/uL Baso # (Auto) 0.01 (0-0.2) K/uL Sodium (136-145) mmol/L Potassium (3.5-5.1) mmol/L Chloride (98-107) mmol/L Carbon Dioxide (21-32) mmol/L Anion Gap (3-11) BUN (7-18) mg/dl Creatinine (0.6-1.4) mg/dl Est Cr Clr Drug Dosing ml/min Est GFR ( Amer) Est GFR (Non-Af Amer) BUN/Creatinine Ratio (10-20) Glucose (70-99) mg/dl POC Glucose (70-99) Estimat Average Glucose mg/dl Hemoglobin A1c (4.5-5.6) % Calcium (8.5-10.1) mg/dl Magnesium (1.8-2.4) mg/dl Total Bilirubin (0.2-1) mg/dl AST (15-37) U/L ALT (12-78) U/L Alkaline Phosphatase (45-117) U/L Total Creatine Kinase (39-308) U/L Total Protein (6.4-8.2) gm/dl Albumin (3.4-5.0) gm/dl Globulin (2.5-4.0) gm/dl Albumin/Globulin Ratio (0.9-2) Lipase (73-393) U/L Urine Color Urine Appearance (Clear) Urine pH (4.5-7.5) Ur Specific [place] (1.000-1.030) Urine Protein (Negative) Urine Glucose (UA) (Negative) Urine Ketones (Negative) Urine Blood (Negative) Urine Nitrite (Negative) Urine Bilirubin (Negative) Urine Urobilinogen (Negative) Ur Leukocyte Esterase (Negative) Urine WBC (Auto) (0-5) /hpf Urine RBC (Auto) (0-4) /hpf U Hyaline Cast (Auto) (0-5) /lpf U Epithel Cells (Auto) (0-5) /lpf Urine Bacteria (Auto) (Negative) Ethyl Alcohol mg/dL (0-3) mg/dl Diagnostic Findings CT abd pelvis IV con only CT DOSE: 1111.25 mGy.cm HISTORY: Pain. Nausea. mid abd pain TECHNIQUE: Multiaxial CT images of the abdomen and pelvis were performed following the use of intravenous contrast. A dose lowering technique was utilized adhering to the principles of ALARA. COMPARISON STUDY: None. FINDINGS: Lung bases are clear.. Liver and spleen are uniform. There is an irregular mass within the mid pancreatic body measuring 4.5 x 5.0 cm. This is suspect for neoplasm versus focal pancreatitis. Several mildly thickened loops of small bowel anterior aspect of the superior central abdominal region. Kidneys negative for hydronephrosis. No abnormal renal calcifications are present. Bowel pattern is nonobstructive. Findings of mild chronic descending and proximal sigmoid diverticulosis. IMPRESSION: 1. Mid pancreatic infiltrative mass versus focal mid pancreatic body pancreatitis. 2. Probable reactive thickening of several surrounding loops of small bowel versus superimposed enteritis. 3. All major arterial structures appear patent. 4. Several omental nodes which may be reactive. Bladder is midline. 5. Diagnostic considerations include pancreatic neoplasm versus focal mid body pancreatitis.
[2018-06-18] MEDS ORDERED: GADOBUTROL 65ML VIAL IV PRN (17:12)
--- NOTE | 2018-06-18 17:40 | Magnetic Resonance Report ---
MR abdomen wo/w con CLINICAL HISTORY: Pancreatic mass TECHNIQUE: Imaging was performed prior to and following IV contrast injection. Imaging was performed in the coronal and axial planes, before and after the administration of 11 cc of intravenous Gadavist . COMPARISON STUDY: CT scan dated 06/17/2018 FINDINGS: No hepatic masses are visualized. No gallbladder abnormalities are visualized. There is no evidence of abdominal aortic dilatation. The spleen is mildly enlarged measuring 13.5 cm. No splenic masses are visualized. No solid renal masses are visualized. There is no hydronephrosis. There is no biliary ductal dilatation. There is a 5 cm infiltrative pancreatic body mass. There is splenic vein encasement and possible occl usion. There is encasement of the portal splenic confluence with venous narrowing. There is minimal d istal pancreatic ductal prominence. There are multiple soft tissue nodules within the anterior mesentery suspicious for carcinomatosis. IMPRESSION: 1. 5 cm infiltrate of pancreatic body mass with splenic vein encasement and possible occlusion. There is also encasement of the portal splenic confluence with venous narrowing. 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 In addition there are multiple anterior mesenteri c/omental nodules, suspicious for carcinomatosis. GI referral for consideration of endoscopic ultraso und and pancreatic biopsy is recommended. 2. No hepatic masses identified. No evidence of biliary ductal dilatation. 3. Mild splenomegaly. Electronically signed by: Clark Townsend M.D. 06/18/2018 5:37 PM
[2018-06-19] MEDS: INSULIN ASPART 100 UNITS/ML 3 ML PEN SC SCH ×3 (00:28→12:57)
[2018-06-19] MEDS: ACETAMINOPHEN 325 MG TAB PO PRN ×4 (00:35→15:58)
[2018-06-19] MEDS: SODIUM CHLORIDE 0.9% 1000ML 1,000 ML IV SCH ×3 (01:21→14:36)
--- NOTE | 2018-06-19 06:17 | Hospitalist Progress Note ---
Date of Service delayed entry date of service 06/18/18 June 19, 2018 Assessment & Plan (1) Mass of pancreas: ASSESSMENT AND PLAN: This is a 52-year-old male who presents with abdominal pain. 1. Abdominal pain, going on for last 2 months CAT scan showing suspicious for mass versus pancreatic mid body pancreatitis. Omental nodes could be reactive. -- MRI abdomen: (+) 5cm pancreatic mass, omental nodules -- GI consulted plan for EUS with FNAB -- continue pain control 2. Diabetes. -- hold oral meds, ISS for now 3. Hypertension. Continue his valsartan/hydrochlorothiazide and monitor his blood pressure. 4. Hyperlipidemia. Holding statin for now. 5. Deep venous thrombosis prophylaxis, SCDs. Subjective ff up for possible pancreatic mass seen resting in bed, comfortable not in distress states epigastric pain is well controlled denies chest pain, shortness of breath, palpitations, dizziness no other symptoms Review of Systems Review of Systems: All systems reviewed & are unremarkable except as noted in HPI & below Physical Exam Physical Exam: General- oriented x 3, not in distress, speaks in sentences with no effort or accessory muscle use Eyes- anicteric Neck- no JVD Lungs- clear breath sounds bilaterally, no rales/wheezes Heart- normal rate, regular rhythm; no murmurs Abdomen- normal bowel sounds, nondistended, soft, nontender Extremities- no pretibial edema, no calf tenderness Neuro- alert, oriented x 3; no gross focal neurologic deficits Skin- warm & dry Results & Data Vital Signs (Past 12 Hours) Vital Signs Temp Pulse Resp BP Pulse Ox 06/18/18 22:44 37.2 C 93 H 18 161/91 H 97 Laboratory Results noted , reviewed
[2018-06-19] MEDS: hydroCHLOROthiazide 25 MG TAB PO SCH (07:53)
[2018-06-19] MEDS: VALSARTAN 80 MG TAB PO SCH (07:54)
--- NOTE | 2018-06-19 10:16 | Surgery Progress Note ---
Date of Service June 19, 2018 Assessment & Plan (1) Mass of pancreas: 52 year-old male with 1 month history of upper abdominal pain and back pain that has progressively increased. CT scan showing pancreatic mass vs focal mid pancreatic body pancreatitis. No leukocytosis. LFTS and lipase wnl. afebrile. Abdomen is soft, nondistended, mild tender in the epigastric region/upper abdomen. No peritonitis or rigidity. MRI : 5 cm infiltrate of pancreatic body mass with splenic vein encasement and possible occlusion. There is also encasement of the portal splenic confluence with venous narrowing. The findings likely represent a pancreatic carcinoma with vascular invasion. In addition there are multiple anterior mesenteric/omental nodules, suspicious for carcinomatosis. Plan: Discussed plan with GI who plans for outpt EUS with FNA tomorrow morning at [address] Lindsay at [facility]. Discussed possible CT with pancreatic protocol however they would prefer to get diagnosis first. If this needs surgical intervention, would recommend referral to surgical oncologist either Betty Torrez or [facility] in which they will most likely plan for their own imaging studies. (CT with pancreatic protocol as discussed above) Okay from surgical standpoint for discharge today Dr. Antunez has seen and examined pt, agrees with above. Supervising Physician Co-Signing Physician Notes I have seen and evaluated the patient and reviewed the medical record. I agree with the documentation as provided in this note by Tali Oneal PA-C. Subjective feeling okay today, pain minimal having more of a headache no nausea or vomiting had turkey sandwich for dinner last night without any pain or n/v Physical Exam Constitutional: WD/WN, vitals as above no acute distress and not ill appearing Respiratory: normal respiratory effort; no respiratory distress Gastrointestinal (Abdomen): Inspection/Auscultation: abdomen normal to inspection; abdomen not distended Percussion/Palpation: abdomen soft; abdomen nontender, no guarding and abdomen not rigid Skin: no rashes, warm and dry Psychiatric: A+Ox3, euthymic affect Results & Data Vital Signs (Past 12 Hours) Vital Signs Temp Pulse Resp BP Pulse Ox 06/19/18 07:11 37.3 C 87 18 138/77 99 06/18/18 22:44 37.2 C 93 H 18 161/91 H 97 Diagnostic Findings MR abdomen wo/w con CLINICAL HISTORY: Pancreatic mass TECHNIQUE: Imaging was performed prior to and following IV contrast injection. Imaging was performed in the coronal and axial planes, before and after the administration of 11 cc of intravenous Gadavist. COMPARISON STUDY: CT scan dated 06/17/2018 FINDINGS: No hepatic masses are visualized. No gallbladder abnormalities are visualized. There is no evidence of abdominal aortic dilatation. The spleen is mildly enlarged measuring 13.5 cm. No splenic masses are visualized. No solid renal masses are visualized. There is no hydronephrosis. There is no biliary ductal dilatation. There is a 5 cm infiltrative pancreatic body mass. There is splenic vein encasement and possible occlusion. There is encasement of the portal splenic confluence with venous narrowing. There is minimal distal pancreatic ductal prominence. There are multiple soft tissue nodules within the anterior mesentery suspicious for carcinomatosis. IMPRESSION: 1. 5 cm infiltrate of pancreatic body mass with splenic vein encasement and possible occlusion. There is also encasement of the portal splenic confluence with venous narrowing. The findings likely represent a pancreatic carcinoma with vascular invasion. In addition there are multiple anterior mesenteric/omental nodules, suspicious for carcinomatosis. GI referral for consideration of endoscopic ultrasound and pancreatic biopsy is recommended. 2. No hepatic masses identified. No evidence of biliary ductal dilatation. 3. Mild splenomegaly.
[2018-06-19] MEDS: HYDROmorphone INJ 0.5 MG/0.5 ML SYR IV PRN (11:08)
--- NOTE | 2018-06-19 11:19 | Gastroenterology Progress Note ---
Date of Service June 19, 2018 Assessment & Plan (1) Mass of pancreas: 52 year old male w/ upper abdominal and back pain x 1 month, CT completed through the ED concerning for infiltrative mass versus focal mid pancreatic body pancreatitis. He has normal LFTs and lipase. MRI w/ a 5 cm infiltrate pancreatic body mass with splenic vein encasement and possible occlusion concerning for a pancreatic carcinoma with vascular invasion w/ mesenteric/omental nodules, suspicious for carcinomatosis. - Results discussed, all questions answered - Please arrange discharge home today - He is [facility] will call you today w/ specific instruction - [facility] PR[facility] GI to sign off. Thank you for allowing us to participate in the care of this patient. Please call with any acute changes, questions or concerns. Please see addendum below with additional recommendation from my supervising physician. Supervising Physician Co-Signing Physician Notes I have seen and examined the patient and discussed the management with TANIKA Chairez. PE: Gen - no acute, distress, CV- rrr no mrg, Pulm -ctab, abd - soft nt nd +bs MRI results reviewed Outpatient EUS-FNA tomorrow as an outpatient. Surgery following the patient. GI will sign off. Subjective Pt was seen and evaluated, chart reviewed. Family at bedside. MRI discussed. All questions answering. Continues to have abd pain although better controlled. No nausea, vomiting. No fever, chills, CP. No weight loss. Review of Systems Constitutional: no fever, no body aches, no weight loss and no insomnia Respiratory: no cough, no dyspnea, no pain on inspiration and no wheezing Cardiovascular: no chest pain, no radiating jaw, neck or arm pain, no dyspnea on exertion and no palpitations Gastrointestinal: + abdominal pain; no bloating, no nausea, no hematemesis, no pain with swallowing, no cramping, no excessive flatulence, no change in stools, no constipation, no fecal incontinence, no blood in stools and no melena Physical Exam Constitutional: WD/WN, vitals as above well developed; no acute distress Respiratory: normal respiratory effort, lungs clear to auscultation Cardiovascular: RRR, no murmur, no edema Gastrointestinal (Abdomen): Percussion/Palpation: + abdomen tender and abdomen soft; no guarding, abdomen not rigid and no abdominal mass Skin: no rashes, warm and dry Results & Data Vital Signs (Past 12 Hours) Vital Signs Temp Pulse Resp BP Pulse Ox 06/19/18 07:11 37.3 C 87 18 138/77 99 Laboratory Results 06/19/18 06/18/18 06/18/18 Range/Units 05:49 23:59 18:06 POC Glucose 107 H 104 H 116 H (70-99) 06/18/18 Range/Units 12:12 POC Glucose 117 H (70-99)
[2018-06-19 13:47] LABS: BUN Creatinine Ratio 9.3 (10-20); Calcium 8.5 mg/dl (8.5-10.1); Creatinine Clr Calc Pharmacy 136.8 ml/min; Est GFR (African American) 118.3; Est GFR (Non-African American) 102.1; Potassium 3.7 mmol/L (3.5-5.1)
--- NOTE | 2018-06-19 14:44 | Hospitalist Progress Note ---
Date of Service delayed entry date of service as noted below June 19, 2018 Assessment & Plan (1) Mass of pancreas: ASSESSMENT AND PLAN: This is a 52-year-old male who presents with abdominal pain. 1. Abdominal pain, going on for last 2 months CAT scan showing suspicious for mass versus pancreatic mid body pancreatitis. Omental nodes could be reactive. -- MRI abdomen: (+) 5cm pancreatic mass, omental nodules -- GI consulted plan for EUS with FNAB as outpatient -- Tramadol PRN for pain 2. Diabetes. -- continue usual meds 3. Hypertension. Continue his valsartan/hydrochlorothiazide. 4. Hyperlipidemia. on statin 5. Deep venous thrombosis prophylaxis, SCDs. Subjective ff up for pancreatic mass seen resting in bed, comfortable abdominal pain well controlled denies other symptoms states he is ready and would like to be discharged home Pt was seen and evaluated, chart reviewed. Family at bedside. MRI discussed. All questions answering. Continues to have abd pain although better controlled. No nausea, vomiting. No fever, chills, CP. No weight loss. Review of Systems Review of Systems: All systems reviewed & are unremarkable except as noted in HPI & below Physical Exam Physical Exam: General- oriented x 3, not in distress, speaks in sentences with no effort or accessory muscle use Eyes- anicteric Neck- no JVD Lungs- clear BS BL Heart- normal rate, regular rhythm; no murmurs Abdomen- normal bowel sounds, nondistended, soft, nontender Extremities- no pretibial edema, no calf tenderness Neuro- alert, oriented x 3; no gross focal neurologic deficits Skin- warm & dry Results & Data Vital Signs (Past 12 Hours) Vital Signs Temp Pulse Resp BP Pulse Ox 06/19/18 07:11 37.3 C 87 18 138/77 99 Laboratory Results all noted and reviewed
--- NOTE | 2018-06-24 11:04 | Discharge Summary ---
Date of Service June 24, 2018 Admission HPI Per Admitting Provider DATE OF ADMISSION: 06/18/2018 CHIEF COMPLAINT: Abdominal pain. HISTORY OF PRESENT ILLNESS: This is a 52-year-old male with past medical history significant for hyperlipidemia, diabetes, hypertension, presents with severe abdominal pain. He states his abdominal pain going on for last couple of months. It was thought to be from his diabetic medications, but it was not getting better. He came to the ER today. Imaging studies showed some pancreatic mass and anterior abdominal nodular densities. With the pain medication, the pain is controlled now. Denies any nausea, vomiting. No diarrhea, no constipation. No melena or hematochezia. Normal bladder movements. No hematuria. Denies any headaches. No earache. No blurred vision, no runny nose, no sore throat, no difficulty swallowing. Appetite is okay. No recent weight gain, weight loss. No night sweating, no chest pain, no shortness of breath, no cough, no fever, no chills. No swelling of the extremities, no rash. Currently resting comfortably and hemodynamically stable. Admission Exam Per Admitting Provider GENERAL: The patient is moderate built. The patient is obese, not in acute distress. VITAL SIGNS: Temperature 36.9, pulse 74, respiratory rate 18, blood pressure 134/80, oxygen 98% room air. HEENT: No pallor, no icterus. Pupils equal, round, and reactive to light. NECK: No JVD. No neck masses, no carotid bruit. CARDIOVASCULAR: S1, S2 heard, regular rate and rhythm, no murmur, no gallop. RESPIRATORY SYSTEM: Normal AP diameter. No accessory muscle use. No wheezing, no crackles. ABDOMEN: Soft, bowel sounds present. Mild epigastric discomfort. No guarding, no rigidity. No distention. CENTRAL NERVOUS SYSTEM: Cranial nerves II-XII grossly intact. Nonfocal. EXTREMITIES: No edema, erythema. Principal Diagnosis PANCREATIC MASS Discharge Exam General- oriented x 3, not in distress, speaks in sentences with no effort or accessory muscle use Eyes- anicteric Neck- no JVD Lungs- clear BS BL Heart- normal rate, regular rhythm; no murmurs Abdomen- normal bowel sounds, nondistended, soft, nontender Extremities- no pretibial edema, no calf tenderness Neuro- alert, oriented x 3; no gross focal neurologic deficits Skin- warm & dry Discharge Data Allergies Allergy/AdvReac Type Severity Reaction Status Date / Time Penicillins Allergy Severe Swelling Verified 06/17/18 23:50 of Lip/Tongue/Throat Sulfa (Sulfonamide Allergy Severe Swelling Verified 06/17/18 23:50 Antibiotics) of Lip/Tongue/Throat Torcan AdvReac Intermediate Muscle Pain Uncoded 06/17/18 23:50 Consultations 06/18/18 00:12 ED Decision to Admit Stat 06/18/18 08:00 Consult Gastroenterology Routine Consult General Surgery Routine Ordered Studies 06/17/18 21:48 CT abd pelvis IV con only Urgent There is an irregular mass within the mid pancreatic body measuring 4.5 x 5.0 cm. This is suspect for neoplasm versus focal pancreatitis. Several mildly thickened loops of small bowel anterior aspect of the superior central abdominal region. Kidneys negative for hydronephrosis. No abnormal renal calcifications are present. Bowel pattern is nonobstructive. Findings of mild chronic descending and proximal sigmoid diverticulosis. IMPRESSION: 1. Mid pancreatic infiltrative mass versus focal mid pancreatic body pancreatitis. 2. Probable reactive thickening of several surrounding loops of small bowel versus superimposed enteritis. 3. All major arterial structures appear patent. 4. Several omental nodes which may be reactive. Bladder is midline. 5. Diagnostic considerations include pancreatic neoplasm versus focal mid body pancreatitis. 06/18/18 11:27 MR abdomen wo/w con Routine There is an irregular mass within the mid pancreatic body measuring 4.5 x 5.0 cm. This is suspect for neoplasm versus focal pancreatitis. Several mildly thickened loops of small bowel anterior aspect of the superior central abdominal region. Kidneys negative for hydronephrosis. No abnormal renal calcifications are present. Bowel pattern is nonobstructive. Findings of mild chronic descending and proximal sigmoid diverticulosis. IMPRESSION: 1. Mid pancreatic infiltrative mass versus focal mid pancreatic body pancreatitis. 2. Probable reactive thickening of several surrounding loops of small bowel versus superimposed enteritis. 3. All major arterial structures appear patent. 4. Several omental nodes which may be reactive. Bladder is midline. 5. Diagnostic considerations include pancreatic neoplasm versus focal mid body pancreatitis. Hospital Course (1) Mass of pancreas: ASSESSMENT AND PLAN: This is a 52-year-old male who presents with abdominal pain. 1. Abdominal pain, going on for last 2 months CAT scan showing suspicious for mass versus pancreatic mid body pancreatitis. Omental nodes could be reactive. -- MRI abdomen: (+) 5cm pancreatic mass, omental nodules -- GI consulted plan for EUS with FNAB as outpatient -- Tramadol PRN for pain 2. Diabetes. -- continue usual meds 3. Hypertension. Continue his valsartan/hydrochlorothiazide. 4. Hyperlipidemia. on statin FF UP WITH GI FOR EUS/FNAB FF UP WITH PCP IN 1 WEEK Total Time Total Time Spent Total Time Spent (In Minutes): 35 MINUTES Discharge Plan Discharge Items Patient Disposition: Home - Self-Care Reason For Visit: ABDOMINAL PAIN Discharge Diagnosis: PANCREATIC MASS Discharge Goals: Diagnostic testing and Therapeutic intervention Activity: As commented below Activity Comment: NO HEAVY EXERTION Lifting: Wait until after follow-up appointment Exercise/Sports: Wait until after follow-up appointment Driving/Machine Use Comment: NO DRIVING WHILE TAKING [place] AND UNTIL RE- EVALUATED BY YOUR DOCTOR Non-emergency contact: Primary Care Provider Call non-emergency contact if: you have any medication questions, your symptoms worsen and you have a fever Follow-up/Referrals: Felipe Carmona PA-C [Primary Care Provider] - 06/26/18 1:00 pm Diet: Carb Consistent or DM2, Heart Healthy and Low Fat Addtl Provider Instructions: FOLLOW UP WITH BLENDING OPERATOR SCHEDULED FOR EGD. PLEASE DRINK PLENTY OF FLUIDS. PLEASE CALL PRIMARY CARE PHYSICIAN OR RETURN TO ER IMMEDIATELY IF WITH RECURRENCE OF SYMPTOMS. Prescriptions: New amlodipine 5 mg tablet 7.5 mg PO DAILY 30 Days Qty: 45 RF: 0 hydrocodone-acetaminophen [[place]] 5-325 mg tablet 1 tab PO Q6H PRN (Reason: pain) Qty: 10 RF: 0 sennosides-docusate sodium [Senokot-S] 8.6-50 mg tablet 1 tab PO DAILY Qty: 30 RF: 1 Continued atorvastatin 20 mg Tablet 20 mg PO HS RF: 0 hyoscyamine sulfate 0.125 mg Tablet 0.125 mg PO DIRECTED PRN (Reason: Abdominal Pain) RF: 0 glipizide 5 mg Tablet 5 mg PO DAILY RF: 0 Jardiance 10 mg Tablet 10 mg PO DAILY RF: 0 Discontinued valsartan-hydrochlorothiazide 160-25 mg Tablet 1 tab PO DAILY RF: 0 Stand-Alone Forms: Call Back Authorization, [facility], Opioid Pain Management, Work/School Release (Inpt) Discharge Orders: Discharge Order (Routine); Ordered 06/19/18 Ordered By: Norbert Roy Admission Data Admit Date/Time: 06/18/18 02:11 Attending Provider: Norbert Roy Admit Provider: Mingo Gilbert Primary Care Provider: Felipe Carmona Other Providers: Mingo Gilbert ; Manny Calderón ; Frederic Vela ; Cristy Milton ; Abiel Tolentino ; Yumiko Lindsay ; Radha Valenzuela ; Nanette Romo ; Aaron Morgan ; Shun Mendez ; Asmita Reis ; Padmini Jefferson ; Lashay Hendricks ; Maria Del Rosario Price ; Lisbeth David ; Mich Hallman ; Iram Moctezuma ; Nancy Morrell ; Stephane Pompa ; Jose Wilkinson ; Bianca Lindsay ; Maxx Vanegas ; Elpidio Carter ; Khushi Esquivel ; Jayden Chilel ; Tali Oneal ; Abdullahi Anand Jr ; Berkley Mittal ; Maria Del Rosario Antunez. Service: Surgical Services Other DC Date/Time DO NOT enter until pt leaves facility: 06/19/18 16:59
== END 2018-06-19 16:59 | disposition home or self-care (01) | DRG 440 ==
LOC: ED 20:41 → 3N 06-18 02:11

== ENCOUNTER 2018-09-01 08:09 | Inpatient (IN) ==
[2018-09-01] MEDS ORDERED: ONDANSETRON INJ 2 MG/ML 2 ML VIAL IV STA (08:38)
[2018-09-01] MEDS ORDERED: SODIUM CHLORIDE 0.9% 1000ML 1,000 ML IV ONE (08:41)
--- NOTE | 2018-09-01 08:43 | Emergency Department Note ---
Entered by Padmini Pike acting as a scribe for History of Present Illness General Chief complaint: Illness Stated complaint: COLD, HOT, WEAK- PANCREATIC CANCER PT Time Seen by Provider: 09/01/18 08:25 Source: patient History of Present Illness Onset (ago): day(s) 2 Location: head Pain Consistency: + other (persistent) Maximum Pain Intensity: 0 Quality: + other (weakness) Associated symptoms: + denies other symptoms (abdominal pain, cough, rhinorrhea) and + other (nausea/vomiting, fever, sweats, dry heaving, hot/cold feeling, weight loss) The patient is a 53 year old male that is presenting to the Emergency Room with complaints of persistent weakness that started 2 days ago following a round of chemotherapy treatment. The patient reports that he has no energy and has been vomiting since the treatment. He states that he is currently nauseous and has intermittent dry heaving. He notes that he has been sweating due to a subjective fever. He states that he alternates between feeling hot and cold. He denies any abdominal pain, cough, or rhinorrhea. He notes that he has lost weight recently. He states that he takes Zofran and another anti-nausea medication with only mild relief in his nausea. The patient reports that he is currently undergoing chemotherapy due to pancreatic cancer that metastasized to the liver. He states that he started his most recent treatment 4 days ago and went home with a pump. He notes that the pump was removed 2 days ago. He states that this was his first full-strength chemotherapy treatment. He notes that he was diagnosed with the cancer 3 months ago and is scheduled to undergo treatment every 14 days. He states that he is unsure of the prognosis for his cancer treatment. He notes juan carlos t he is followed by Oncology in [place] and at [facility]. The patient reports that he was found to have type II diabetes around 1 year ago. He states that he was having stomach pains due to his diabetes medications and was then found to have a mass on his liver. The patient notes that he wears a Neulasta patch that was removed last night. Home Medications Home Medications Medication Instructions Recorded Confirmed Type Jardiance 10 mg PO QAM 06/17/18 09/01/18 History glipizide 5 mg PO QAM 06/17/18 09/01/18 History fentanyl 1 patch TRANSDERMAL Q72H 08/06/18 09/01/18 History metoclopramide HCl 10 mg PO DIRECTED 08/06/18 09/01/18 History ondansetron HCl [Zofran] 8 mg PO Q8H PRN 08/06/18 09/01/18 History Tylenol Rapid Release 500 mg PO Q6H PRN 09/01/18 09/01/18 History hydromorphone 4 mg PO Q4H PRN 09/01/18 09/01/18 History sucralfate 1 g PO BID 09/01/18 09/01/18 History valsartan-hydrochlorothiazide 1 tab PO QAM 09/01/18 09/01/18 History Allergies Allergy/AdvReac Type Severity Reaction Status Date / Time Penicillins Allergy Severe Swelling Verified 09/01/18 08:31 of Lip/Tongue/Throat Sulfa (Sulfonamide Allergy Severe Swelling Verified 09/01/18 08:31 Antibiotics) of Lip/Tongue/Throat Torcan AdvReac Intermediate Muscle Pain Uncoded 09/01/18 08:31 Past Med/Surg History Medical History Mass of pancreas (Chronic) Diabetes Hypertension Surgical History Previous back surgery 2005 Social History Preferred Language: Jamaican Beliefs That Will Affect Care: None Current Living Situation: Spouse Feels Safe at Home: Yes Smoking Status: Never smoker Second Hand Exposure: No Hx Alcohol Use: Yes Hx Substance Use: No Review of Systems See HPI for pertinent positives & negatives. and A total of 10 systems reviewed and were otherwise negative Physical Exam Vital Signs Vital Signs - 24 hr 09/01/18 08:14 09/01/18 09:04 09/01/18 09:37 Temperature 36.4 C L 36.5 C Temperature Source Oral Oral Sepsis Recent Fever Within 48 Hours No Sepsis New/Unexplained Change in Mental Status No Sepsis Action Taken by Nursing No Action Required Pulse Rate 111 H Pulse Rate [Apical] 84 Pulse Strength [Apical] Normal Respiratory Rate 20 18 Respiratory Effort / Characteristics Non-Labored Spontaneous Respiratory Depth Normal Respiratory Pattern Regular Blood Pressure 139/100 Blood Pressure [Left Arm] 141/106 H Blood Pressure Mean 113 Blood Pressure Mean [Left Arm] 117 Blood Pressure Position Sitting Pulse Oximetry 112 H 99 Oxygen Delivery Method Room Air Room Air Room Air CONSTITUTIONAL/VITAL SIGNS: Reviewed / noted above. GENERAL: Non-toxic in appearance. Generalized weakness. INTEGUMENTARY: Warm, dry, and [place]. HEAD: Normocephalic. EYES: without scleral icterus or trauma. ENT/OROPHARYNX: clear and moist. LYMPHADENOPATHY/NECK: Is supple without lymphadenopathy or meningismus. RESPIRATORY: Lungs clear and equal. CARDIOVASCULAR: Regular rate and rhythm. GI/ABDOMEN: Soft and nontender. No organomegaly or pulsatile mass. No rebound or guarding. Normal bowel sounds. EXTREMITIES: Warm and well perfused. BACK: No CVA tenderness. NEUROLOGICAL: Intact without focal deficits. PSYCHIATRIC: normal affect. MUSCULOSKELETAL: Normally developed with good muscle tone. Course 0832:The patient was evaluated in room B02. A complete history and physical examination was performed. 1035: I updated the patient on his current lab and imaging results. 1044: I discussed the patient's case with TANIKA Boone, who will evaluate the patient for further management and care with [facility] the attending physician. 1055: Upon reevaluation, the patient is resting comfortably. I discussed laboratory and radiographic results with the patient. He verbalized agreement of the treatment plan. The patient will be evaluated for further management and care. Consultations Consultation #1: I discussed the patient's case with TANIKA Boone, who will evaluate the patient for further management and care with Dr[facility]. Time: 10:44 Administered Medications Discontinued Medications Sodium Chloride (Nss 1000ml) 1,000 mls @ 999 mls/hr IV .Q1H1M DESTINEY Stop: 09/01/18 09:45 Last Infusion: 09/01/18 10:10 Dose: 0 mls/hr Documented by: [id number] Admin: 09/01/18 08:47 Dose: 999 mls/hr Documented by: [id number] Sodium Chloride (Nss 1000ml) 1,000 mls @ 999 mls/hr IV .Q1H1M ONE Stop: 09/01/18 09:41 Last Infusion: 09/01/18 10:10 Dose: 0 mls/hr Documented by: [id number] Admin: 09/01/18 08:47 Dose: 999 mls/hr Documented by: [id number] Ondansetron HCl (Zofran) 4 mg IV NOW STA Stop: 09/01/18 08:39 Last Admin: 09/01/18 08:48 Dose: 4 mg Documented by: [id number] Medical Decision Making Differential Diagnosis Differential includes viral illness, influenza, streptococcal pharyngitis, meningitis, pneumonia, sinusitis, UTI, pyelonephritis, otitis media. Medical Records Attestation: I reviewed the patient's medical records. Home Medications Current Medication List: was personally reviewed by md Laboratory Data Attestation: I reviewed the patient's lab results. Result diagrams: 09/01/18 08:46 09/01/18 08:46 Lab Results 09/01/18 09/01/18 09/01/18 Range/Units 08:46 08:46 08:46 WBC 44.66 H* (4.8-10.8) K/uL RBC 5.07 (4.7-6.1) M/uL Hgb 15.4 (14.0-18.0) g/dL Hct 43.5 (42-52) % MCV 85.8 (80-100) fL MCH 30.4 (25-34) pg MCHC 35.4 (32-36) g/dL RDW Std Deviation 41.3 (36.4-46.3) fL RDW Coeff of Lilia 13.4 (11.5-14.5) % Plt Count 131 (130-400) K/uL MPV 9.9 (7.4-10.4) fL Immature Gran % (Auto) 2.7 % Neut % (Auto) 92.3 % Lymph % (Auto) 4.5 % [place] % (Auto) 0.2 % Eos % (Auto) 0.3 % Baso % (Auto) 0.0 % Immature Gran # (Auto) 1.21 H (0.00-0.02) K/uL Neut # (Auto) 41.22 H (1.4-6.5) K/uL Lymph # (Auto) 2.01 (1.2-3.4) K/uL [place] # (Auto) 0.07 L (0.11-0.59) K/uL Eos # (Auto) 0.13 (0-0.5) K/uL Baso # (Auto) 0.02 (0-0.2) K/uL PT 10.9 (9.0-12.0) Seconds INR 1.1 (0.9-1.1) Sodium 133 L (136-145) mmol/L Potassium 3.5 (3.5-5.1) mmol/L Chloride 98 (98-107) mmol/L Carbon Dioxide 24 (21-32) mmol/L Anion Gap 11.0 (3-11) BUN 17 (7-18) mg/dl Creatinine 0.80 (0.6-1.4) mg/dl Est Cr Clr Drug Dosing 119.9 ml/min Est GFR ( Amer) 119.9 Est GFR (Non-Af Amer) 103.4 BUN/Creatinine Ratio 20.5 H (10-20) Glucose 152 H (70-99) mg/dl Calcium 9.4 (8.5-10.1) mg/dl Total Bilirubin 0.7 (0.2-1) mg/dl AST 78 H (15-37) U/L ALT 229 H (12-78) U/L Alkaline Phosphatase 299 H (45-117) U/L Total Protein 7.4 (6.4-8.2) gm/dl Albumin 3.7 (3.4-5.0) gm/dl Globulin 3.6 (2.5-4.0) gm/dl Albumin/Globulin Ratio 1.0 (0.9-2) Lipase 64 L (73-393) U/L Urine Color Urine Appearance (Clear) Urine pH (4.5-7.5) Ur Specific [place] (1.000-1.030) Urine Protein (Negative) Urine Glucose (UA) (Negative) Urine Ketones (Negative) Urine Blood (Negative) Urine Nitrite (Negative) Urine Bilirubin (Negative) Urine Urobilinogen (Negative) Ur Leukocyte Esterase (Negative) 09/01/18 Range/Units 10:20 WBC (4.8-10.8) K/uL RBC (4.7-6.1) M/uL Hgb (14.0-18.0) g/dL Hct (42-52) % MCV (80-100) fL MCH (25-34) pg MCHC (32-36) g/dL RDW Std Deviation (36.4-46.3) fL RDW Coeff of Lilia (11.5-14.5) % Plt Count (130-400) K/uL MPV (7.4-10.4) fL Immature Gran % (Auto) % Neut % (Auto) % Lymph % (Auto) % [place] % (Auto) % Eos % (Auto) % Baso % (Auto) % Immature Gran # (Auto) (0.00-0.02) K/uL Neut # (Auto) (1.4-6.5) K/uL Lymph # (Auto) (1.2-3.4) K/uL [place] # (Auto) (0.11-0.59) K/uL Eos # (Auto) (0-0.5) K/uL Baso # (Auto) (0-0.2) K/uL PT (9.0-12.0) Seconds INR (0.9-1.1) Sodium (136-145) mmol/L Potassium (3.5-5.1) mmol/L Chloride (98-107) mmol/L Carbon Dioxide (21-32) mmol/L Anion Gap (3-11) BUN (7-18) mg/dl Creatinine (0.6-1.4) mg/dl Est Cr Clr Drug Dosing ml/min Est GFR ( Amer) Est GFR (Non-Af Amer) BUN/Creatinine Ratio (10-20) Glucose (70-99) mg/dl Calcium (8.5-10.1) mg/dl Total Bilirubin (0.2-1) mg/dl AST (15-37) U/L ALT (12-78) U/L Alkaline Phosphatase (45-117) U/L Total Protein (6.4-8.2) gm/dl Albumin (3.4-5.0) gm/dl Globulin (2.5-4.0) gm/dl Albumin/Globulin Ratio (0.9-2) Lipase (73-393) U/L Urine Color Yellow Urine Appearance Clear (Clear) Urine pH 7.0 (4.5-7.5) Ur Specific Dex[place] 1.027 (1.000-1.030) Urine Protein Negative (Negative) Urine Glucose (UA) 3+ H (Negative) Urine Ketones 1+ H (Negative) Urine Blood Negative (Negative) Urine Nitrite Negative (Negative) Urine Bilirubin Negative (Negative) Urine Urobilinogen Negative (Negative) Ur Leukocyte Esterase Negative (Negative) Imaging Data Radiologist's Impression: Radiology results as stated below per my review and the radiologist's interpretation: XR chest 1V portable HISTORY: 53 years-old Male weak acute weakness COMPARISON: CT abdomen and pelvis 06/17/2018 TECHNIQUE: Portable AP view of the chest FINDINGS: Cardiomediastinal and hilar silhouettes are within normal limits. Unchanged left pectoral Gpmzbz-t-Hdya catheter. No pneumothorax, pleural effusion, focal airspace consolidation or overt pulmonary edema. Degenerative changes of the shoulders and spine. IMPRESSION: No acute process. The above report was generated using voice recognition software. It may contain grammatical, syntax or spelling errors. Electronically signed by: Amando Cooley M.D. 09/01/2018 10:26 AM Blood Pressure Blood Pressure Findings: Elevated blood pressure Blood Pressure Disposition: elevated BP felt to be situational MDM Narrative This is a 53-year-old male who presents to the ED with a chief complaint of nausea and vomiting as well as feeling tired and fatigue. He also reported some chills. The patient states that he had his last chemotherapy session on . He gets this every 14 days for pancreatic cancer that has metastasized to the liver. The patient has no other complaints. Denies rhinorrhea, cough, sore throat, chest pains or shortness of breath. He denies any abdominal pains. He feels that his symptoms are likely related to his chemotherapy. His vital signs are stable. He is slightly tachycardic with a heart rate of 111. He is afebr ile. His physical exam was benign. He has no abdominal tenderness. He does appear to be weak and fatigued. His mucous membranes are slightly dry. The patient's work-up revealed a white blood cell count of 44.6. This could be related to the Neulasta patch that he had on for the past day. It was removed yesterday. The complete metabolic panel was unremarkable. AST, ALT and alkaline phosphatase were elevated although this is not new. Lipase was negative. Chest x-ray was negative for acute disease and a urine revealed 3+ blood and 1+ ketones. Urine was otherwise negative for infection. The patient was treated with IV fluids as well as Zofran IV. He received 2 L normal saline. On reassessment, the patient still is fatigued and weak. He does not look well and will be seen by the hospitalist for further inpatient evaluation. He did not have any fevers here. He did have a little chest pain here and his twelve- lead EKG showed normal sinus rhythm without ischemic changes. Impression & Plan Weakness, Leukocytosis Discharge Plan Visit Data Chief Complaint: Illness Stated Complaint: COLD, HOT, WEAK- PANCREATIC CANCER PT ED Provider: Salvador Ye Discharge Problem: Weakness, Leukocytosis Patient Disposition: Being Evaluated by Hospitalist Forms Stand Alone Forms: My [facility] Prescriptions Prescriptions: No Action glipizide 5 mg Tablet 5 mg PO QAM RF: 0 Jardiance 10 mg Tablet 10 mg PO QAM RF: 0 fentanyl 25 mcg/hr Patch 72 Hour 1 patch TRANSDERMAL Q72H RF: 0 metoclopramide HCl 10 mg Tablet 10 mg PO DIRECTED RF: 0 ondansetron HCl [Zofran] 8 mg Tablet 8 mg PO Q8H PRN (Reason: nausea/vomiting) RF: 0 sucralfate 1 gram tablet 1 g PO BID RF: 0 hydromorphone 4 mg tablet 4 mg PO Q4H PRN (Reason: Pain) RF: 0 valsartan-hydrochlorothiazide 160-25 mg tablet 1 tab PO QAM RF: 0 Tylenol Rapid Release gel 500 mg PO Q6H PRN (Reason: Pain) RF: 0 Referrals Referrals: Felipe Carmona PA-C [Primary Care Provider] - Discharge Problem: Leukocytosis Qualifiers: Leukocytosis type: unspecified Qualified Code(s): D72.829 - Elevated white blood cell count, unspecified The scribe's documentation has been prepared under my direction and personally r eviewed by me in its entirety. I confirm that the note above accurately reflects all work, treatment, procedures, and medical decision making performed by me.
[2018-09-01] MEDS ORDERED: SODIUM CHLORIDE 0.9% 1000ML 1,000 ML IV SCH (08:45)
[2018-09-01 09:19] LABS: INR 1.1 (0.9-1.1); Prothrombin Time 10.9 Seconds (9.0-12.0)
[2018-09-01 09:23] LABS: Hematocrit (blood only) 43.5 % (42-52); Hemoglobin 15.4 g/dL (14.0-18.0); Mean Corpuscular Hgb Conc 35.4 g/dL (32-36); Mean Corpuscular Volume 85.8 fL (80-100); Mean Platelet Volume 9.9 fL (7.4-10.4); Platelet Count 131 K/uL (130-400); RDW Coefficient of Variation 13.4 % (11.5-14.5); RDW Standard Deviation 41.3 fL (36.4-46.3); Red Blood Count 5.07 M/uL (4.7-6.1); White Blood Count 44.66 K/uL (4.8-10.8)
[2018-09-01 09:25] LABS: Albumin Level 3.7 gm/dl (3.4-5.0); BUN Creatinine Ratio 20.5 (10-20); Calcium 9.4 mg/dl (8.5-10.1); Creatinine Clr Calc Pharmacy 119.9 ml/min; Est GFR (African American) 119.9; Est GFR (Non-African American) 103.4; Potassium 3.5 mmol/L (3.5-5.1)
[2018-09-01 09:28] LABS: Bilirubin,Total 0.7 mg/dl (0.2-1); Globulin 3.6 gm/dl (2.5-4.0); Total Protein 7.4 gm/dl (6.4-8.2)
[2018-09-01 09:32] LABS: Basophils # (auto) 0.02 K/uL (0-0.2); Eosinophils # (auto) 0.13 K/uL (0-0.5); Eosinophils % (auto) 0.3 %; Immature Granulocytes # (auto) 1.21 K/uL (0.00-0.02); Immature Granulocytes % (auto) 2.7 %; Lymphocytes # (auto) 2.01 K/uL (1.2-3.4); Lymphocytes % (auto) 4.5 %; Monocytes # (auto) 0.07 K/uL (0.11-0.59); Monocytes % (auto) 0.2 %; Neutrophils # (auto) 41.22 K/uL (1.4-6.5); Neutrophils % (auto) 92.3 %
--- NOTE | 2018-09-01 10:28 | XRay Report ---
XR chest 1V portable HISTORY: 53 years-old Male weak acute weakness COMPARISON: CT abdomen and pelvis 06/17/2018 TECHNIQUE: Portable AP view of the chest FINDINGS: Cardiomediastinal and hilar silhouettes are within normal limits. Unchanged left pectoral Infuse-a-Po rt catheter. No pneumothorax, pleural effusion, focal airspace consolidation or overt pulmonary edema . Degenerative changes of the shoulders and spine. IMPRESSION: No acute process. The above report was generated using voice recognition software. It may contain grammatical, syntax o r spelling errors. Electronically signed by: Amando Cooley M.D. 09/01/2018 10:26 AM
[2018-09-01 10:30] LABS: Appearance Urine Clear (Clear); Bilirubin Urine Negative (Negative); Blood Urine Negative (Negative); Color Urine Yellow; Glucose Urine UA 3+ (Negative); Ketones Urine 1+ (Negative); Leukocyte Esterase Urine Negative (Negative); Nitrite Urine Negative (Negative); Protein Urine Negative (Negative); Specific Gravity Urine 1.027 (1.000-1.030); Urobilinogen Urine Negative (Negative)
[2018-09-01] MEDS ORDERED: MoRPHine SULFATE 2 MG/ML CARP IV ONE (12:03)
[2018-09-01] MEDS ORDERED: HYDROmorphone INJ 0.5 MG/0.5 ML SYR IV PRN ×2 (12:53→14:15)
[2018-09-01] MEDS ORDERED: PROMETHAZINE HCL 6.25 MG in SODIUM CHLORIDE 0.9% 50 ML IV PRN ×2 (12:53→18:43)
[2018-09-01] MEDS ORDERED: GLUCOSE 40% GEL 15 GM TUBE PO PRN (13:15)
[2018-09-01] MEDS ORDERED: GLUCOSE 10 TABS/TUBE PO PRN (13:15)
[2018-09-01] MEDS ORDERED: DEXTROSE 50% 50 ML SYRINGE IV PRN (13:15)
[2018-09-01] MEDS ORDERED: GLUCAGON FOR INJ 1 MG VIAL SQ PRN (13:15)
[2018-09-01] MEDS ORDERED: CARBOHYDRATES FOR HYPOGLYCEMIA PO PRN (13:15)
[2018-09-01] MEDS: SODIUM CHLORIDE 0.9% 1000ML 1,000 ML IV SCH ×2 (13:30→21:37)
[2018-09-01] MEDS: ONDANSETRON INJ 2 MG/ML 2 ML VIAL IV PRN ×2 (13:31→19:58)
[2018-09-01] MEDS ORDERED: fentaNYL 100 MCG/HR TDSY TD SCH (14:00)
--- NOTE | 2018-09-01 15:16 | CT Scan Report ---
ABDOMEN AND PELVIS CT WITHOUT CONTRAST CT DOSE: 692.05 mGy.cm HISTORY: Generalized abdominal pain. TECHNIQUE: Multiaxial CT images of the abdomen and pelvis were performed without contrast. A dose lo wering technique was utilized adhering to the principles of ALARA. COMPARISON STUDY: Abdomen and pelvis CT 06/17/2018. FINDINGS: The lung bases are clear. No pneumoperitoneum. No pneumatosis. No suspicious lytic or blast ic osseous lesions. The unenhanced liver, spleen, adrenal glands, and kidneys are unremarkable. No hy dronephrosis. The gallbladder is mildly distended. No gallbladder wall thickening. Redemonstration of the 6 cm infiltrative pancreatic mass. This is similar to the prior study. 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 Peritoneal carcinomatosis is again noted with mul tiple omental soft tissue nodules. This has progressed in interval. Normal appendix. The bladder is u nremarkable. There appears to be mild thickening of the transverse colon, ascending colon, and descen ding colon which is also fluid-filled. This favors a mild colitis. No evidence for bowel obstruction. IMPRESSION: 1. Redemonstration of the pancreatic mass with progressive peritoneal carcinomatosis. 2. Suspect a mild colitis. This favors an inflammatory/infectious process. Electronically signed by: Nilesh Felix M.D. 09/01/2018 3:15 PM
[2018-09-01] MEDS: CHECK FENTANYL PATCH PLACEMENT SCH (15:40)
[2018-09-01] MEDS: ENOXAPARIN INJ 40 MG/0.4 ML SYR SQ SCH (15:40)
--- NOTE | 2018-09-01 16:02 | History & Physical Report ---
Date of Service September 01, 2018 Assessment & Plan (1) Chemotherapy induced nausea and vomiting: (2) Pancreatic carcinoma metastatic to liver: -Admit to [facility] -Patient presenting from home with persistent nausea, vomiting, abdominal pain after chemotherapy treatment on 08/28 -Patient currently undergoing treatment for metastatic pancreatic cancer - receives 5-FU, irinotecan, oxaliplatin -Suspect nausea and vomiting is likely secondary to recently increased dose of chemotherapy -CT ABD/pelvis negative for acute findings -Renal functions and electrolytes WNL -Continue supportive care with IVF, pain and nausea control (3) Leukocytosis: -WBC 44K -No signs of infection, afebrile -was discussed with Dr. Francois, likely secondary to recent Neulasta treatment post chemo -Follow CBC daily (4) Hypertension: -BP controlled, continue valsartan/hydrochlorothiazide (5) DM type 2 (diabetes mellitus, type 2): -Hgb A1c 7.6 05/2018 -Hold oral agents and utilize NovoLog per protocol while hospitalized (6) Dyslipidemia: -Continue statin (7) DVT prophylaxis: -SQ Lovenox History of Present Illness Chief Complaint: Nausea, vomiting, abdominal pain Primary Care Provider: Felipe Carmona PA-C 53-year-old male who presents the ED with nausea, vomiting, abdominal pain. Patient was recently diagnosed with metastatic adenocarcinoma the pancreas, currently undergoing chemotherapy. Last treatment was on 08/28. Patient receives 5-FU, irinotecan, oxaliplatin. Previously, chemotherapy agents have been omitted or reduced secondary to patient having loose stools. However patient's treatment on 08/28 was full therapy of these agents. Patient also received Neulasta post treatment. Since receiving chemotherapy, patient has had persiste nt nausea, vomiting, abdominal pain. Oral intake has been very poor. He reports about a 20 pound weight loss over the past 1 month. Patient denies hematemesis and coffee-ground emesis. Pain has been located in the right upper quadrant. This is where he has been having pain since his cancer diagnosis. Pain has not been different. Patient denies chest pain shortness of breath. No lightheadedness, dizziness, diaphoresis, syncopal events. He denies fevers and chills. No urinary symptoms. In the ED, labs show WBC 44K, other labs unremarkable/at baseline. Patient is hemodynamically stable. He is afebrile, no current signs of infection. He received IV morphine, IV Zofran, IVF. Allergies Allergy/AdvReac Type Severity Reaction Status Date / Time Penicillins Allergy Severe Swelling Verified 09/01/18 08:31 of Lip/Tongue/Throat Sulfa (Sulfonamide Allergy Severe Swelling Verified 09/01/18 08:31 Antibiotics) of Lip/Tongue/Throat Torcan AdvReac Intermediate Muscle Pain Uncoded 09/01/18 08:31 Home Medications Home Medications Medication Instructions Recorded Confirmed Type Jardiance 10 mg PO QAM 06/17/18 09/01/18 History glipizide 5 mg PO QAM 06/17/18 09/01/18 History metoclopramide HCl 10 mg PO Q6H PRN 08/06/18 09/01/18 History ondansetron HCl [Zofran] 8 mg PO Q8H PRN 08/06/18 09/01/18 History atorvastatin 20 mg PO DAILY 09/01/18 09/01/18 History dicyclomine 20 mg PO Q6H PRN 09/01/18 09/01/18 History fentanyl 1 patch TRANSDERMAL Q72H 09/01/18 09/01/18 History hydromorphone 4 mg PO Q4H PRN 09/01/18 09/01/18 History omeprazole 20 mg PO DAILY 09/01/18 09/01/18 History oxycodone 5 mg PO Q4H PRN 09/01/18 09/01/18 History prochlorperazine maleate 5 mg PO Q6H PRN 09/01/18 09/01/18 History sucralfate 1 g PO BID 09/01/18 09/01/18 History tramadol 50 mg PO Q6H PRN 09/01/18 09/01/18 History valsartan-hydrochlorothiazide 1 tab PO QAM 09/01/18 09/01/18 History Past Med/Surg History Medical History Pancreatic carcinoma metastatic to liver (Chronic) Pancreatic adenocarcinoma (Chronic) Hypertension (Chronic) DM type 2 (diabetes mellitus, type 2) (Chronic) Dyslipidemia (Chronic) Social History Preferred Language: Estonian Communication Ability: Effective Individual Small Group Instructor Required: No Beliefs That Will Affect Care: None Current Living Situation: Spouse Other Information That Helps Us Care for You: No Feels Safe at Home: Yes Safety Concerns: Feels Safe At This Time Smoking Status: Never smoker Do You Dip or Chew Tobacco: No Second Hand Exposure: No Tobacco Cessation Education Requested by Patient: No Hx Alcohol Use: Yes Hx Substance Use: No Review of Systems Review of Systems: ROS per HPI, all other systems reviewed and negative Physical Exam Constitutional: WD/WN, vitals as above + ill appearing Eyes: PERRL, conjunctivae normal, anicteric sclerae ENMT: external ear and nose normal, oropharynx normal Respiratory: normal respiratory effort, lungs clear to auscultation Cardiovascular: Rate/Rhythm: regular rate and regular rhythm Vessels: normal peripheral pulses Extremities: no edema Gastrointestinal (Abdomen): Inspection/Auscultation: normal bowel sounds; abdomen not distended Percussion/Palpation: + abdomen tender (Right upper quadrant) and abdomen soft; no hepatosplenomegaly Musculoskeletal: no cyanosis or clubbing, extremities motor strength 5/5 Skin: no rashes, warm and dry Neurologic: PERRL, EOMI, accommodation nl, no face palsy, no dysarthria Psychiatric: Orientation: alert and oriented x 3 Affect: + anxious affect (Restless) Results & Data Vital Signs (Past 12 Hours) Vital Signs Temp Pulse Pulse Resp BP BP Pulse Ox 09/01/18 15:39 36.4 C L 96 H 18 144/89 H 99 09/01/18 12:55 36.5 C 96 H 22 133/91 97 09/01/18 12:19 97 H 20 141/100 H 98 09/01/18 11:09 92 H 20 157/93 H 100 09/01/18 09:37 36.5 C 84 18 141/106 H 99 09/01/18 08:14 36.4 C L 111 H 20 139/100 112 H Laboratory Results Short CBC 09/01/18 Range/Units 08:46 WBC 44.66 H* (4.8-10.8) K/uL Hgb 15.4 (14.0-18.0) g/dL Hct 43.5 (42-52) % Plt Count 131 (130-400) K/uL BMP 09/01/18 08:46 Sodium 133 L Potassium 3.5 Chloride 98 Carbon Dioxide 24 BUN 17 Creatinine 0.80 Glucose 152 H Calcium 9.4 Liver Function 09/01/18 Range/Units 08:46 Total Bilirubin 0.7 (0.2-1) mg/dl AST 78 H (15-37) U/L ALT 229 H (12-78) U/L Alkaline Phosphatase 299 H (45-117) U/L Albumin 3.7 (3.4-5.0) gm/dl Urine 09/01/18 Range/Units 10:20 Urine Color Yellow Urine Appearance Clear (Clear) Urine pH 7.0 (4.5-7.5) Ur Specific [place] 1.027 (1.000-1.030) Urine Protein Negative (Negative) Urine Glucose (UA) 3+ H (Negative) Diagnostic Findings CXR IMPRESSION: No acute process. CT ABD/PELVIS IMPRESSION: 1. Redemonstration of the pancreatic mass with progressive peritoneal carcinomatosis. 2. Suspect a mild colitis. This favors an inflammatory/infectious process. Code Status & VTE Plan VTE Prophylaxis Plan VTE Prophylaxis will be ordered: Yes Supervising Physician Co-Signing Physician Notes Patient is a 53-year-old male with history of metastatic pancreatic cancer, hypertension, diabetes, dyslipidemia and other problems presents with history of nausea, vomiting, abdominal pain, generalized weakness and tiredness. Patient's last chemotherapy was 4 days ago. Patient was placed on Neulasta in after the chemotherapy and was discontinued yesterday. He states abdominal pain is sharp to dull, all across the lower abdomen, nonradiating. He denies any fever chills, diarrhea. Reports having a weight loss of about 17 pounds in 5 days. Has a very poor appetite secondary to abdominal pain and nausea. States having history of hemorrhoids and noticed minimal blood after wiping. Please review HPI for complete details of presentation. Last bowel movement is this m orning. On exam patient is moderately built and nourished, no apparent distress, normocephalic atraumatic, lungs are clear to auscultation, S1-S2, no murmur, abdomen soft, tenderness predominantly lower abdomen, no guarding or rigidity, grossly no focal neurological deficits, no pedal edema. CT abdomen suggestive of pancreatic mass with progressive peritoneal carcinomatosis and mild colitis. Leukocytosis likely secondary to the Neulasta. Mild transaminitis noted. Plan to start with IV fluids, antiemetics, pain control. Will consider antibiotics if patient develops fever, diarrhea. Blood cultures obtained. Consider oncology evaluation if conservative management does not improve. Consider nutritional supplements once patient tolerates oral diet. Monitor LFTs, electrolytes. I personally reviewed the record. Patient is interviewed and examined at bedside. Patient's care is coordinated with Yanni Lux NP. Please refer to the documentation above for details of patient's presentation and for discussion of other issues.
[2018-09-01] MEDS: HYDROmorphone HCL 2 MG TAB PO PRN (16:11)
[2018-09-01] MEDS: DICYCLOMINE HCL 20 MG TAB PO PRN (16:13)
[2018-09-01] MEDS ORDERED: METOCLOPRAMIDE HCL 10 MG TABLET PO PRN (16:51)
[2018-09-01] MEDS: INSULIN ASPART 100 UNITS/ML 3 ML PEN SC SCH ×2 (17:12→21:19)
[2018-09-01] MEDS: HYDROmorphone INJ 0.5 MG/0.5 ML SYR IV PRN (19:49)
[2018-09-01] MEDS: SUCRALFATE 1 GM TAB PO SCH (20:50)
[2018-09-01] MEDS: METOCLOPRAMIDE HCL 10 MG TABLET PO SCH (20:51)
[2018-09-02] MEDS: HYDROmorphone HCL 2 MG TAB PO PRN ×4 (00:09→21:41)
[2018-09-02] MEDS: CHECK FENTANYL PATCH PLACEMENT SCH ×3 (00:10→15:26)
[2018-09-02] MEDS ORDERED: HEPARIN 100 UNIT/ML 5ML FLUSH FLUSH PRN (00:44)
[2018-09-02] MEDS: SODIUM CHLORIDE 0.9% 1000ML 1,000 ML IV SCH (03:59)
[2018-09-02] MEDS: HYDROmorphone INJ 0.5 MG/0.5 ML SYR IV PRN (04:14)
[2018-09-02] MEDS: ONDANSETRON INJ 2 MG/ML 2 ML VIAL IV PRN (04:14)
[2018-09-02 06:29] LABS: Hematocrit (blood only) 38.2 % (42-52); Mean Corpuscular Volume 87.2 fL (80-100); Mean Platelet Volume 9.9 fL (7.4-10.4); Platelet Count 106 K/uL (130-400); RDW Coefficient of Variation 13.6 % (11.5-14.5); RDW Standard Deviation 43.2 fL (36.4-46.3); Red Blood Count 4.38 M/uL (4.7-6.1); White Blood Count 40.35 K/uL (4.8-10.8)
[2018-09-02 06:51] LABS: Albumin Level 3.1 gm/dl (3.4-5.0); BUN Creatinine Ratio 20.2 (10-20); Calcium 8.4 mg/dl (8.5-10.1); Creatinine Clr Calc Pharmacy 152.7 ml/min; Est GFR (African American) 128.2; Est GFR (Non-African American) 110.6; Potassium 3.9 mmol/L (3.5-5.1)
[2018-09-02 06:57] LABS: Albumin Globulin Ratio 1.1 (0.9-2); Bilirubin,Total 0.6 mg/dl (0.2-1); Globulin 2.9 gm/dl (2.5-4.0)
[2018-09-02] MEDS: PANTOprazole 40 MG TAB PO SCH (08:15)
[2018-09-02] MEDS: SUCRALFATE 1 GM TAB PO SCH ×3 (08:15→21:37)
[2018-09-02] MEDS: METOCLOPRAMIDE HCL 10 MG TABLET PO SCH ×5 (08:15→21:17)
[2018-09-02] MEDS: ATORVASTATIN 20 MG TAB PO SCH (08:15)
[2018-09-02] MEDS: VALSARTAN 80 MG TAB PO SCH (08:15)
[2018-09-02] MEDS ORDERED: ONDANSETRON 4 MG OD TAB PO PRN ×2 (08:25→15:00)
[2018-09-02] MEDS ORDERED: hydroCHLOROthiazide 25 MG TAB PO SCH (09:00)
[2018-09-02] MEDS: INSULIN ASPART 100 UNITS/ML 3 ML PEN SC SCH ×4 (09:29→20:51)
[2018-09-02] MEDS ORDERED: fentaNYL 75 MCG/HR TDSY TD SCH (14:00)
[2018-09-02] MEDS: ENOXAPARIN INJ 40 MG/0.4 ML SYR SQ SCH (14:18)
[2018-09-02] MEDS ORDERED: POLYETHYLENE (MIRALAX) 17 GM PACK PO PRN (14:56)
--- NOTE | 2018-09-02 15:07 | Hospitalist Progress Note ---
Date of Service September 02, 2018 Assessment & Plan (1) Chemotherapy induced nausea and vomiting: resolved and tolerating food but still with some nausea and abdominal pain. (2) Pancreatic carcinoma metastatic to liver: last chemotherapy was 08/28, Neulasta was on 08/30 (3) Leukocytosis: WBC 44-->40, 2/2 Neulasta. (4) Hypertension: BP controlled, continue valsartan. (5) DM type 2 (diabetes mellitus, type 2): -Hgb A1c 7.6 05/2018 -Hold oral agents and utilize NovoLog per protocol while hospitalized -repeat A1C after significant weight loss. (6) Dyslipidemia: -Continue statin (7) DVT prophylaxis: -SQ Lovenox Full Dispo-to home in am. Veronica Arciniega DO [facility] Hospitalist Subjective 53 yo M with pancreatic cancer s/p chemotherapy on 08/28 and Neulasta on 08/30 who presents with intractable nausea, dehydration and constipation. Abdominal pain was also present and improved. Review of Systems Review of Systems: All systems reviewed & are unremarkable except as noted in HPI & below Physical Exam Physical Exam: CONSTITUTIONAL: WNWD, vitals as above, generally well- appearing EYES: normal conjunctivae, no scleral icterus ENT: MMM NECK: trachea midline, no lymphadenopathy RESPIRATORY: clear to auscultation bilaterally, no crackles, rales or wheezes, normal respiratory effort CARDIOVASCULAR: regular rate and rhythm, S1 and 2 heard without murmurs, gallops or rubs, no JVD, no peripheral edema CHEST: port to left anterior chest wall. GASTROINTESTINAL: normal bowel sounds, soft, nontender, nondistended, no guarding. No palpable masses. MUSCULOSKELETAL: strength 5/5 throughout, head is normocephalic and atraumatic, neck supple, ambulatory SKIN: warm and dry, some diaphoresis on head and back of neck NEUROLOGIC: CN 2-12 grossly intact, normal cognition, no gross focal deficits. PSYCHIATRIC: alert cooperative and oriented to person, place and time. Results & Data Vital Signs (Past 12 Hours) Vital Signs Temp Pulse Pulse Resp BP Pulse Ox 09/02/18 11:15 36.7 C 76 18 132/88 98 09/02/18 07:40 36.5 C 76 16 143/86 H 97 09/02/18 04:14 36.8 C 81 20 125/85 97 Laboratory Results Short CBC 09/02/18 Range/Units 06:13 WBC 40.35 H* (4.8-10.8) K/uL Hgb 13.0 L (14.0-18.0) g/dL Hct 38.2 L (42-52) % Plt Count 106 L (130-400) K/uL BMP 09/02/18 06:13 Sodium 137 Potassium 3.9 Chloride 103 Carbon Dioxide 25 BUN 14 Creatinine 0.68 Glucose 103 H Calcium 8.4 L Liver Function 09/02/18 Range/Units 06:13 Total Bilirubin 0.6 (0.2-1) mg/dl AST 32 (15-37) U/L ALT 134 H (12-78) U/L Alkaline Phosphatase 236 H (45-117) U/L Albumin 3.1 L (3.4-5.0) gm/dl Diagnostic Findings ABDOMEN AND PELVIS CT WITHOUT CONTRAST CT DOSE: 692.05 mGy.cm HISTORY: Generalized abdominal pain. TECHNIQUE: Multiaxial CT images of the abdomen and pelvis were performed without contrast. A dose lowering technique was utilized adhering to the principles of ALARA. COMPARISON STUDY: Abdomen and pelvis CT 06/17/2018. FINDINGS: The lung bases are clear. No pneumoperitoneum. No pneumatosis. No suspicious lytic or blastic osseous lesions. The unenhanced liver, spleen, adrenal glands, and kidneys are unremarkable. No hydronephrosis. The gallbladder is mildly distended. No gallbladder wall thickening. Redemonstration of the 6 cm infiltrative pancreatic mass. This is similar to the prior study. Again, this appears to encase/occlude the proximal superior mesenteric vein. Peritoneal carcinomatosis is again noted with multiple omental soft tissue nodules. This has progressed in interval. Normal appendix. The bladder is unremarkable. There appears to be mild thickening of the transverse colon, ascending colon, and descending colon which is also fluid-filled. This favors a mild colitis. No evidence for bowel obstruction. IMPRESSION: 1. Redemonstration of the pancreatic mass with progressive peritoneal carcinomatosis. 2. Suspect a mild colitis. This favors an inflammatory/infectious process. Medications Administered Current Inpatient Medications Atorvastatin Calcium (Lipitor) 20 mg PO DAILY DESTINEY Stop: 10/02/18 08:59 Last Admin: 09/02/18 08:15 Dose: 20 mg Documented by: Dextrose (Dextrose 50%) 25 - 50 ml IV UD PRN; Protocol PRN Reason: Hypoglycemia Protocol Stop: 10/01/18 13:14 Dicyclomine HCl (Bentyl) 20 mg PO Q6H PRN PRN Reason: Abdominal Pain Stop: 10/01/18 13:13 Last Admin: 09/01/18 16:13 Dose: 20 mg Documented by: Docusate Sodium (Colace) 100 mg PO BID DESTINEY Stop: 10/02/18 20:59 Enoxaparin Sodium (Lovenox) 40 mg SQ Q24H [facility]STINEY Stop: 10/01/18 14:29 Last Admin: 09/02/18 14:18 Dose: 40 mg Documented by: Fentanyl (Duragesic) 75 mcg TD Q72H [facility] Stop: 09/16/18 13:59 Last Admin: 09/02/18 14:19 Dose: 75 mcg Documented by: Glucagon (Glucagen) 1 mg SQ UD PRN; Protocol PRN Reason: Hypoglycemia Protocol Stop: 10/01/18 13:14 Glucose (Glucose 40%) 15 - 30 gm PO UD PRN; Protocol PRN Reason: Hypoglycemia Protocol Stop: 10/01/18 13:14 Glucose (Dex4 Glucose) 4 - 8 tabs PO UD PRN; Protocol PRN Reason: Hypoglycemia Protocol Stop: 10/01/18 13:14 Heparin Sodium (Porcine) (Heparin Sod 100 Unit/Ml Flush) 5 ml FLUSH PRN PRN PRN Reason: Flush Stop: 10/02/18 00:44 Hydrochlorothiazide (Hctz) 25 mg PO DAILY [facility] Stop: 10/02/18 08:59 Last Admin: 09/02/18 08:15 Dose: 25 mg Documented by: Hydromorphone HCl (Dilaudid) 4 mg PO Q4H PRN PRN Reason: Pain Last Admin: 09/02/18 08:11 Dose: 4 mg Documented by: Hydromorphone HCl (Dilaudid) 0.5 mg IV Q3H PRN PRN Reason: Severe Pain Stop: 09/15/18 14:14 Last Admin: 09/02/18 04:14 Dose: 0.5 mg Documented by: Promethazine HCl 6.25 mg/ (Sodium Chloride) 50.25 mls @ 201 mls/hr IV Q4H PRN PRN Reason: Nausea And Vomiting Stop: 10/01/18 12:52 Last Infusion: 09/01/18 19:15 Dose: Infused Documented by: Insulin Aspart (Novolog Flexpen) 0 units SC ACHS [facility] Stop: 10/01/18 16:29 Last Admin: 09/02/18 12:49 Dose: 3 units Documented by: Metoclopramide HCl (Reglan) 10 mg PO QID [facility] Stop: 10/01/18 20:59 Last Admin: 09/02/18 12:51 Dose: 10 mg Documented by: Miscellaneous (Fentanyl Patch Check Placement) 1 ea N/A QS [facility] Stop: 10/01/18 15:59 Last Admin: 09/02/18 08:19 Dose: 1 ea Documented by: Miscellaneous (Carbohydrates For Hypoglycemia) 15 - 30 gm PO UD PRN PRN Reason: Hypoglycemia Treatment Stop: 10/01/18 13:14 Miscellaneous (Fentanyl Patch Remove & Waste) 1 ea N/A Q3D@1359 [facility] Stop: 10/02/18 13:58 Last Admin: 09/02/18 14:19 Dose: 1 ea Documented by: Ondansetron HCl (Zofran Odt) 4 mg PO Q4H PRN PRN Reason: Nausea Stop: 10/02/18 08:24 Pantoprazole Sodium (Protonix) 40 mg PO DAILY [facility] Stop: 10/02/18 08:59 Last Admin: 09/02/18 08:15 Dose: 40 mg Documented by: Polyethylene Glycol (Miralax Powder Packet) 17 gm PO Q12H PRN PRN Reason: Constipation Stop: 10/02/18 14:55 Sucralfate (Carafate Tab) 1 gm PO BID [facility] Stop: 10/01/18 20:59 Last Admin: 09/02/18 08:15 Dose: 1 gm Documented by: Valsartan (Diovan) 160 mg PO QAM [facility] Stop: 10/02/18 08:59 Last Admin: 09/02/18 08:15 Dose: 160 mg Documented by:
[2018-09-02] MEDS ORDERED: DOCUSATE SODIUM 100 MG CAP ONE (16:45)
[2018-09-02] MEDS: DOCUSATE SODIUM 100 MG CAP PO SCH ×2 (16:47→20:23)
[2018-09-02] MEDS: DICYCLOMINE HCL 20 MG TAB PO PRN (17:53)
[2018-09-03] MEDS: CHECK FENTANYL PATCH PLACEMENT SCH ×2 (00:20→08:17)
[2018-09-03 06:47] LABS: BUN Creatinine Ratio 22.2 (10-20); Calcium 8.5 mg/dl (8.5-10.1); Creatinine Clr Calc Pharmacy 149.9 ml/min; Est GFR (African American) 131.4; Est GFR (Non-African American) 113.4; Magnesium 1.9 mg/dl (1.8-2.4); Phosphorus 4.1 mg/dl (2.5-4.9); Potassium 3.2 mmol/L (3.5-5.1)
[2018-09-03 06:48] LABS: Estimated Average Glucose 146 mg/dl; Hemoglobin A1C 6.7 % (4.5-5.6)
[2018-09-03] MEDS: DOCUSATE SODIUM 100 MG CAP PO SCH (08:14)
[2018-09-03] MEDS: VALSARTAN 80 MG TAB PO SCH (08:14)
[2018-09-03] MEDS: ATORVASTATIN 20 MG TAB PO SCH (08:14)
[2018-09-03] MEDS: METOCLOPRAMIDE HCL 10 MG TABLET PO SCH ×2 (08:14→11:56)
[2018-09-03] MEDS: PANTOprazole 40 MG TAB PO SCH (08:14)
[2018-09-03] MEDS: SUCRALFATE 1 GM TAB PO SCH ×2 (08:54→09:31)
[2018-09-03] MEDS: INSULIN ASPART 100 UNITS/ML 3 ML PEN SC SCH ×2 (08:58→12:36)
[2018-09-03] MEDS ORDERED: POTASSIUM CHLORIDE 20 MEQ TABCR PO STA (11:19)
[2018-09-03 11:40] LABS: Hematocrit (blood only) 37.7 % (42-52); Hemoglobin 12.9 g/dL (14.0-18.0); Mean Corpuscular Hgb Conc 34.2 g/dL (32-36); Mean Corpuscular Volume 88.7 fL (80-100); Mean Platelet Volume 10.3 fL (7.4-10.4); Platelet Count 101 K/uL (130-400); RDW Coefficient of Variation 13.6 % (11.5-14.5); RDW Standard Deviation 43.4 fL (36.4-46.3); Red Blood Count 4.25 M/uL (4.7-6.1); White Blood Count 30.79 K/uL (4.8-10.8)
[2018-09-03 11:46] LABS: Basophils # (auto) 0.08 K/uL (0-0.2); Basophils % (auto) 0.3 %; Eosinophils # (auto) 0.24 K/uL (0-0.5); Eosinophils % (auto) 0.8 %; Immature Granulocytes # (auto) 1.81 K/uL (0.00-0.02); Immature Granulocytes % (auto) 5.9 %; Lymphocytes # (auto) 2.55 K/uL (1.2-3.4); Lymphocytes % (auto) 8.3 %; Monocytes # (auto) 0.11 K/uL (0.11-0.59); Monocytes % (auto) 0.4 %; Neutrophils % (auto) 84.3 %; Platelet Estimate Decreased (Normal); Toxic Granulation 1+
[2018-09-03] MEDS: ENOXAPARIN INJ 40 MG/0.4 ML SYR SQ SCH (13:46)
--- NOTE | 2018-09-03 14:49 | Gastrointestinal Consultation ---
Date of Consultation September 03, 2018 Assessment & Plan (1) Pancreatic carcinoma metastatic to liver: (2) Chemotherapy induced nausea and vomiting: (3) Colitis: (4) Abdominal pain: Pt is a 53 y/o male w metastatic pancreatic ca admitted for n/v, abd pain, CT evidence of mild colitis. He gets diarrhea after chemo therapy, last session 08/28. Recently more constipated. Denies any rectal bleeding. He feels well today w/o n/v, or abd pain. Desires to go home Last colonoscopy 04/19/18 w findings of int hemorrhoids, otherwise normal - May try Bentyl on PRN basis if abd pain recur - Stool studies to r/o infections if diarrhea starts - Low dose stool softener such as Colace 100mg BID or Miralax 17g daily prn constipation - GI to sign off; pls recall as needed Supervising Physician Co-Signing Physician Notes Attending attestation I have seen, examined this patient, and agree with the findings and above by our mid-level provider Ms.Leonie Hendricks, with the following additions -doing well -no signs of clinical colitis -F/U with Onc History of Present Illness Reason for Consultation: Colitis Requesting Physician: Dr. Veronica Arciniega Attending Physician: Dr. Abiel Tolentino History of Present Illness Pt is a 53 y/o male w medical hx of pancreatic ca w met to liver currently on chemo who's admitted for n/v, abd pain across lower abd area. His last chemo treatment was on 08/28. In the past has had issues w diarrhea after having chemo therapy. Recently more constipation. Denies any blood in emesis or rectal bleeding. He takes an antidiarrheal or stool softeners depending on his symptoms . Labs reviewed. WBC 30s but had Neulasta. H/H mild anemia, renal function and electrolytes unremarkable, LFTs elevated. CT abd/pelvis w/o contrast w pancreatic mass w mets and peritoneal carcinomatosis and mild colitis. Allergies Allergy/AdvReac Type Severity Reaction Status Date / Time Penicillins Allergy Severe Swelling Verified 09/01/18 08:31 of Lip/Tongue/Throat Sulfa (Sulfonamide Allergy Severe Swelling Verified 09/01/18 08:31 Antibiotics) of Lip/Tongue/Throat Torcan AdvReac Intermediate Muscle Pain Uncoded 09/01/18 08:31 Home Medications Home Medications Medication Instructions Recorded Confirmed Type Jardiance 10 mg PO QAM 06/17/18 09/01/18 History glipizide 5 mg PO QAM 06/17/18 09/01/18 History metoclopramide HCl 10 mg PO Q6H PRN 08/06/18 09/01/18 History ondansetron HCl [Zofran] 8 mg PO Q8H PRN 08/06/18 09/01/18 History atorvastatin 20 mg PO DAILY 09/01/18 09/01/18 History dicyclomine 20 mg PO Q6H PRN 09/01/18 09/01/18 History fentanyl 1 patch TRANSDERMAL Q72H 09/01/18 09/01/18 History hydromorphone 4 mg PO Q4H PRN 09/01/18 09/01/18 History omeprazole 20 mg PO DAILY 09/01/18 09/01/18 History oxycodone 5 mg PO Q4H PRN 09/01/18 09/01/18 History prochlorperazine maleate 5 mg PO Q6H PRN 09/01/18 09/01/18 History sucralfate 1 g PO BID 09/01/18 09/01/18 History tramadol 50 mg PO Q6H PRN 09/01/18 09/01/18 History valsartan-hydrochlorothiazide 1 tab PO QAM 09/01/18 09/01/18 History Patient History Medical History Pancreatic carcinoma metastatic to liver (Chronic) Pancreatic adenocarcinoma (Chronic) Hypertension (Chronic) DM type 2 (diabetes mellitus, type 2) (Chronic) Dyslipidemia (Chronic) Social History Preferred Language: Icelandic Communication Ability: Effective Light Equipment Operator Required: No Beliefs That Will Affect Care: None marital status: Current Living Situation: Spouse Other Information That Helps Us Care for You: No Feels Safe at Home: Yes Safety Concerns: Feels Safe At This Time Smoking Status: Never smoker Do You Dip or Chew Tobacco: No Second Hand Exposure: No Tobacco Cessation Education Requested by Patient: No Hx Alcohol Use: Yes Hx Substance Use: No Review of Systems Review of Systems: All systems reviewed & are unremarkable except as noted in HPI & below Physical Exam Constitutional: WD/WN, vitals as above well groomed, cooperative and comfortable Eyes: PERRL, conjunctivae normal, anicteric sclerae ENMT: external ear and nose normal, oropharynx normal Respiratory: normal respiratory effort, lungs clear to auscultation Cardiovascular: RRR, no murmur, no edema Gastrointestinal (Abdomen): normal bowel sounds, soft, nontender, no hepatosplenomegaly Skin: no rashes, warm and dry no jaundice Neurologic: Motor/Sensory: no asterixis Psychiatric: A+Ox3, euthymic affect Lymphatic: no lymphedema Results & Data Vital Signs (Past 12 Hours) Vital Signs Temp Pulse Resp BP Pulse Ox 09/03/18 11:30 36.7 C 90 18 120/83 97 09/03/18 07:15 36.7 C 80 18 124/81 98 09/03/18 03:31 36.6 C 75 18 115/72 97
--- NOTE | 2018-09-03 16:06 | Discharge Summary ---
Date of Service September 03, 2018 Admission HPI Per Admitting Provider 53-year-old male who presents the ED with nausea, vomiting, abdominal pain. Patient was recently diagnosed with metastatic adenocarcinoma the pancreas, currently undergoing chemotherapy. Last treatment was on 08/28. Patient receives 5-FU, irinotecan, oxaliplatin. Previously, chemotherapy agents have been omitted or reduced secondary to patient having loose stools. However patient's treatment on 08/28 was full therapy of these agents. Patient also received Neulasta post treatment. Since receiving chemotherapy, patient has had persistent nausea, vomiting, abdominal pain. Oral intake has been very poor. He reports about a 20 pound weight loss over the past 1 month. Patient denies hematemesis and coffee-ground emesis. Pain has been located in the right upper quadrant. This is where he has been having pain since his cancer diagnosis. Pain has not been different. Patient denies chest pain shortness of breath. No lightheadedness, dizziness, diaphoresis, syncopal events. He denies fevers and chills. No urinary symptoms. In the ED, labs show WBC 44K, other labs unremarkable/at baseline. Patient is hemodynamically stable. He is afebrile, no current signs of infection. He received IV morphine, IV Zofran, IVF. Admission Exam Per Admitting Provider WD/WN, vitals as above + ill appearing Eyes: PERRL, conjunctivae normal, anicteric sclerae ENMT: external ear and nose normal, oropharynx normal Respiratory: normal respiratory effort, lungs clear to auscultation Cardiovascular: Rate/Rhythm: regular rate and regular rhythm Vessels: normal peripheral pulses Extremities: no edema Gastrointestinal (Abdomen): Inspection/Auscultation: normal bowel sounds; abdomen not distended Percussion/Palpation: + abdomen tender (Right upper quadrant) and abdomen soft; no hepatosplenomegaly Musculoskeletal: no cyanosis or clubbing, extremities motor strength 5/5 Skin: no rashes, warm and dry Neurologic: PERRL, EOMI, accommodation nl, no face palsy, no dysarthria Psychiatric: Orientation: alert and oriented x 3 Affect: + anxious affect (Restless) Principal Diagnosis chemotherapy-induced nausea and vomiting pancreatic cancer narcotic-induced constipation Discharge Data Allergies Allergy/AdvReac Type Severity Reaction Status Date / Time Penicillins Allergy Severe Swelling Verified 09/01/18 08:31 of Lip/Tongue/Throat Sulfa (Sulfonamide Allergy Severe Swelling Verified 09/01/18 08:31 Antibiotics) of Lip/Tongue/Throat Torcan AdvReac Intermediate Muscle Pain Uncoded 09/01/18 08:31 Consultations 09/01/18 10:54 ED Decision to Admit Stat 09/03/18 11:21 Consult Gastroenterology Routine Ordered Studies 09/01/18 14:16 CT abd pelvis wo con Urgent Hospital Course (1) Chemotherapy induced nausea and vomiting: (2) Pancreatic carcinoma metastatic to liver: (3) Leukocytosis: (4) Hypertension: (5) DM type 2 (diabetes mellitus, type 2): (6) Dyslipidemia: 53-year-old man presented for evaluation of constant pressure in the lower abdomen and groin that was present for a couple of days associated with intractable vomiting. He had previously been seen in [facility] locally but had not had any improvement in symptoms He was admitted to the Hospitalist service and supportive care with IV fluids antiemetics and pain control was instituted. Leukocytosis was notably 44,000 which trended down to 30,000 by time of discharge. This was thought to be secondary to Neulasta post chemotherapy which had been administered on 08/30. He improved and on hospital day 2 he was tolerating solid food. By hospital day 3 his nausea and pain were well controlled on an oral regimen and he was ambulating and mentating at baseline. Of note his hemoglobin A1c was found to be 6.7 in the setting of significant weight loss since recent cancer diagnosis. His glipizide was stopped and Jardiance was continued with close primary care follow-up recommended. Throughout his hospital stay he was significantly constipated and this was thought to be related to his narcotic use. CT imaging initially showed pancolitis and GI was consulted. However, there was no clinical evidence to support an infectious colitis. It was recommended that he he did develop infe ctious colitis symptoms such as diarrhea, blood per rectum or worsening acute abdominal pain that was not controlled he should seek medical attention. We also briefly discussed treatment of anxiety which has been an issue for him recently, especially with anticipation of chemotherapy treatments. I encouraged him to discuss either sertraline and or benzodiazepine use with both his primary care doctor and oncologist. He verbalized understanding with intent to comply. His port was accessed during his hospitalization. At time of discharge a [id number] examination was performed revealing a hemodynamically stable and afebrile patient whose symptoms were controlled. He was tolerating solid food and discharged with close primary care follow-up scheduled. Total Time Total Time Spent Total Time Spent (In Minutes): 60 Total Time Includes: Examination of the Patient, Discharge Planning, Medication Reconciliation, Communication With Other Providers and Other (arrange follow-up) Discharge Plan Discharge Items Patient Disposition: Home - Self-Care Reason For Visit: COLD, HOT, WEAK- PANCREATIC CANCER PT Discharge Diagnosis: chemotherapy-induced nausea and vomiting pancreatic cancer narcotic-induced constipation Condition: Good Discharge Goals: Decrease discomfort and Improve disease control Activity: Resume your previous activity Non-emergency contact: Primary Care Provider Call non-emergency contact if: you have any medication questions, your symptoms worsen, your pain is not controlled, your pain is worsening, your pain is unusual for you, your pain is concerning for you and you have a fever Follow-up/Referrals: Felipe Carmona PA-C [Primary Care Provider] - Diet: Regular Addtl Provider Instructions: Please take all medications as instructed on discharge list below. You are being given disintegrating tablets of Zofran as discussed as an alternative to treat your nausea. You were seen by [facility] while you were in the hospital. You do not appear to have an infection in your colon despite evidence of colon inflammation that was seen on the CT scan performed. However, should you develop diarrhea or worsening acute abdominal pain, you may need to have further studies to exclude this. For your narcotic-induced constipation you are being given Colace which is an OTC stool softener. Please feel free to also try Miralax which is a gentle OTC laxative if your constipation persists. Please followup with your primary care physician (PCP) and Oncologist regarding treatment of your anxiety as discussed. Please stop taking GLIPIZIDE for diabetes. Your repeat A1C was 6.7. Please discuss this with your PCP in follow-up. You have the following appointments scheduled: 09/04/2018 11:00 AM Katy Jensen MD [facility] 09/05/2018 10:00 AM Marcelle Rondon PA-C [facility] It was a pleasure taking care of you! Please call if you have any questions or problems. You can reach a [facility] hospitalist on duty at 24 hours a day by calling [phone]. Take care of yourself. DO Angie Lema Hospitalist Prescriptions: New ondansetron 4 mg tablet,disintegrating 4 mg PO Q4H PRN (Reason: nausea and vomiting) Qty: 30 RF: 1 docusate sodium [Col-Rite] 100 mg capsule 100 mg PO BID Qty: 60 RF: 0 Continued Jardiance 10 mg Tablet 10 mg PO QAM RF: 0 metoclopramide HCl 10 mg Tablet 10 mg PO Q6H PRN (Reason: Nausea) RF: 0 sucralfate 1 gram tablet 1 g PO BID RF: 0 hydromorphone 4 mg tablet 4 mg PO Q4H PRN (Reason: Pain) RF: 0 valsartan-hydrochlorothiazide 160-25 mg tablet 1 tab PO QAM RF: 0 atorvastatin 20 mg tablet 20 mg PO DAILY RF: 0 prochlorperazine maleate 5 mg tablet 5 mg PO Q6H PRN (Reason: Nausea) RF: 0 tramadol 50 mg tablet 50 mg PO Q6H PRN (Reason: Pain) RF: 0 dicyclomine 20 mg tablet 20 mg PO Q6H PRN (Reason: Abdominal Pain) RF: 0 omeprazole 20 mg capsule,delayed release(DR/EC) 20 mg PO DAILY RF: 0 oxycodone 5 mg tablet 5 mg PO Q4H PRN (Reason: Pain) RF: 0 fentanyl 75 mcg/hr Patch 72 Hour 1 patch TRANSDERMAL Q72H RF: 0 Discontinued ondansetron HCl [Zofran] 8 mg Tablet 8 mg PO Q8H PRN (Reason: nausea/vomiting) RF: 0 glipizide 5 mg tablet 5 mg PO BID RF: 0 Stand-Alone Forms: My [facility], Work/School Release (Inpt) [place]/Other Patient Handouts: Hyperglycemia, Hypoglycemia, Diabetes Type 2 Coping Discharge Orders: Discharge Order (Routine); Ordered 09/03/18 Ordered By: Veronica Arciniega Admission Data Admit Date/Time: 09/01/18 12:35 Attending Provider: Veronica Arciniega Admit Provider: Pawan Calixto Primary Care Provider: Felipe Carmona Other Providers: Pawan Calixto ; Abiel Tolentino Service: Oncology Other Interventions: Discharge Summary Assessment (RN) Last Done: 09/03/18 16:07 DC Date/Time DO NOT enter until pt leaves facility: 09/03/18 16:31
[2018-09-03] MEDS: HYDROmorphone HCL 2 MG TAB PO PRN (16:23)
== END 2018-09-03 16:31 | disposition home or self-care (01) | DRG 392 ==
LOC: ED 08:09 → 4E 12:13

== ENCOUNTER 2020-03-09 14:16 | Inpatient (IN) ==
[2020-03-09] MEDS ORDERED: ONDANSETRON INJ 2 MG/ML 2 ML VIAL IV STA (14:51)
[2020-03-09] MEDS: HYDROmorphone INJ 0.5 MG/0.5 ML SYR IV PRN ×4 (14:57→22:58)
[2020-03-09 15:27] LABS: INR 1.1 (0.9-1.1); Partial Thromboplastin Time 28.5 Seconds (21.0-31.0); Prothrombin Time 11.7 Seconds (9.0-12.0)
[2020-03-09 15:33] LABS: Alanine Aminotransferase 31 U/L (12-78); Albumin Level 2.9 gm/dl (3.4-5.0); Aspartate Aminotransferase 22 U/L (15-37); BUN Creatinine Ratio 26.7 (10-20); Blood Urea Nitrogen 15 mg/dl (7-18); Calcium 9.2 mg/dl (8.5-10.1); Carbon Dioxide 24 mmol/L (21-32); Chloride 96 mmol/L (98-107); Creatinine Clr Calc Pharmacy 180.7 ml/min; Est GFR (African American) 135.9; Est GFR (Non-African American) 117.2; Glucose 152 mg/dl (70-99); Lipase 34 U/L (73-393); Potassium 3.5 mmol/L (3.5-5.1); Sodium 131 mmol/L (136-145)
--- NOTE | 2020-03-09 15:36 | Electrocardiogram Report ---
Test Reason : Blood Pressure : / mmHG Vent. 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
[2020-03-09 15:37] LABS: Albumin Globulin Ratio 0.8 (0.9-2); Alkaline Phosphatase 178 U/L (45-117); Bilirubin,Total 0.7 mg/dl (0.2-1); Globulin 3.5 gm/dl (2.5-4.0); Total Protein 6.4 gm/dl (6.4-8.2); Troponin I < 0.015 ng/ml (0-0.045)
[2020-03-09 15:40] LABS: Basophils # (auto) 0.02 K/uL (0-0.2); Basophils % (auto) 0.5 %; Eosinophils # (auto) 0.01 K/uL (0-0.5); Eosinophils % (auto) 0.2 %; Hematocrit (blood only) 35.1 % (42-52); Hemoglobin 11.4 g/dL (14.0-18.0); Immature Granulocytes # (auto) 0.06 K/uL (0.00-0.02); Immature Granulocytes % (auto) 1.4 %; Lymphocytes # (auto) 0.34 K/uL (1.2-3.4); Lymphocytes % (auto) 8.1 %; Mean Corpuscular Hemoglobin 30.2 pg (25-34); Mean Corpuscular Hgb Conc 32.5 g/dL (32-36); Mean Corpuscular Volume 93.1 fL (80-100); Monocytes # (auto) 0.11 K/uL (0.11-0.59); Monocytes % (auto) 2.6 %; Neutrophils # (auto) 3.65 K/uL (1.4-6.5); Neutrophils % (auto) 87.2 %; Platelet Count 229 K/uL (130-400); RDW Coefficient of Variation 16.4 % (11.5-14.5); RDW Standard Deviation 56.1 fL (36.4-46.3); Red Blood Count 3.77 M/uL (4.7-6.1); Tear Drop Cells 1+; White Blood Count 4.19 K/uL (4.8-10.8)
--- NOTE | 2020-03-09 15:52 | Emergency Department Note ---
Impression & Plan Pulmonary embolism, Abdominal pain, Superior mesenteric vein thrombosis ED Provider Note NAME: LEANDRO VILLATORO AGE: 54 SEX: M : 1965 ARRIVES VIA: Walk-In INFORMANT: Patient, ED PROVIDER(S): Aaron Lerner DO CHIEF COMPLAINT: Abdominal pain HPI: The patient is a 54-year-old male who presented to the emergency department at the request of his oncologist for an evaluation of abdominal pain and chest pain. The patient notices upper abdominal pain which has been ongoing for the last week. He does have a history of metastatic pancreatic cancer. He presented to his primary oncologist initially with these complaints. He was sent for CT the chest abdomen and pelvis. He was found to have signs of pulmonary embolism on CT but also signs of mesenteric vein thrombosis as well as splenic vein thrombosis. He was sent directly to the emergency department. The patient states he has been noticing chest discomfort as well as shortness of breath with any exertion. He is also noticed abdominal distention. He was unsure if the abdominal distention was causing his shortness of breath symptoms but because of the degree of the symptoms he followed up with his primary oncologist. The patient denies having any rectal bleeding. He denies having any headaches or recent falls. He has had no nausea or vomiting or fever. The patient states he normally wears a pain patch in this has been managing his pain somewhat. ROS: See above HPI for pertinent positives & negatives. A total of 10 systems reviewed and were otherwise negative. PAST MEDICAL HISTORY: See Below PAST SURGICAL HISTORY: See Below FAMILY HISTORY: See Below SOCIAL HISTORY: See Below HOME MEDICATIONS: See Below ALLERGIES: See Below VITALS: See Below PHYSICAL EXAMINATION: GENERAL: Patient is awake alert in no acute distress patient is resting comfortably and showing no signs of anxiety EYES: The conjunctivae are clear. The pupils are round and reactive. EARS, NOSE, MOUTH AND THROAT: The nose is without any evidence of any deformity. Mucous membranes are moist. Tongue is midline. NECK: The neck is nontender and supple. RESPIRATORY: Normal respiratory effort is noted there is no evidence of wheezing rhonchi or rales CARDIOVASCULAR: Regular rate and rhythm noted there no murmurs rubs or gallops normal S1 normal S2. GASTROINTESTINAL: The abdomen is moderately distended and diffusely tender. There is no guarding rigidity. MUSCULOSKELETAL/EXTREMITIES: There is no evidence of gross deformity full range of motion is noted in the hips and shoulders. SKIN: Trace pedal edema was noted bilaterally. NEUROLOGIC: Patient is awake alert and oriented x3. MEDICAL DECISION MAKING: The patient is a 54-year-old male who presented to the emergency department for an evaluation of abdominal pain. The patient was having worsening abdominal pain over the course the last few days. He does have a history of pancreatic cancer which is metastatic. He went to see his primary oncologist because of the ongoing pain and was referred to the emergency department after a CT that was done as an outpatient revealed signs of superior mesenteric vein thrombosis as well as bilateral pulmonary embolism. I discussed the patient's laboratory results with him. I also discussed his CT reports with him. Given his findings I [facility] have agreed to evaluate the patient in the emergency department for further management and disposition. Triage Nursing notes reviewed. Prior medical records reviewed Vital Signs: reviewed and remarkable for no significant abnormalities Differential diagnosis: Cardiac ischemia, aortic dissection, pulmonary embolism, pneumothorax, pneumonia, pericarditis, myocarditis, esophageal rupture, GERD, cholecystitis, pancreatitis, musculoskeletal, as well as other pathologies. ER treatment provided: See below Diagnostics interpreted by me: ECG: EKG was obtained in the emergency department. My interpretation is normal sinus rhythm at 84 bpm. Poor R wave progression was noted. There was no PVCs noted. This was compared to a tracing from September [id number]. No significant ch anges were noted. Cardiac Monitoring: An order was placed for continuous cardiac monitoring. The monitor shows a rate of 98 bpm with sinus rhythm. Laboratory studies: As stated above and show below. Imaging studies: See below Consultation(s): [id number]: I discussed this case with Gabriella Campos who [facility]. 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 Beliefs That Will Affect Care: None marital status: Current Living Situation: Spouse Other Information That Helps Us Care for You: No Feels Safe at Home: Yes Safety Concerns: Feels Safe At This Time Assistive Devices: Glasses Allergies Allergies Allergy/AdvReac Type Severity Reaction Status Date / Time Penicillins Allergy Severe Swelling Verified 03/09/20 16:16 of Lip/Tongue/Throat Sulfa (Sulfonamide Allergy Severe Swelling Verified 03/09/20 16:16 Antibiotics) of Lip/Tongue/Throat Torcan AdvReac Intermediate Muscle Pain Uncoded 03/09/20 16:16 Home Meds Home Medications Medication Instructions Recorded Confirmed Jardiance 10 mg PO QAM 06/17/18 03/09/20 metoclopramide HCl 10 mg PO Q6H PRN 08/06/18 03/09/20 atorvastatin 20 mg PO QAM 09/01/18 03/09/20 valsartan-hydrochlorothiazide 1 tab PO QAM 09/01/18 03/09/20 fentanyl 50 mcg TOPICAL [id number] 03/09/20 03/09/20 glipizide 5 mg PO DAILY 03/09/20 03/09/20 ondansetron 4 mg PO Q8H PRN 03/09/20 03/09/20 oxycodone 10 mg PO .Q4-6HRS PRN 03/09/20 03/09/20 Previous Rx's Medication Instructions Recorded docusate sodium [Col-Rite] 100 mg PO BID #60 cap 09/03/18 Results & Data (ED) Vital Signs Vital Signs - 24 hr 03/09/20 14:22 03/09/20 14:38 03/09/20 16:23 Temperature 36.5 C Temperature Source Oral Pulse Rate 97 H Pulse Rate [Apical] 88 88 Pulse Rhythm [Apical] Regular Regular Respiratory Rate 20 20 16 Respiratory Effort / Characteristics Non-Labored Non-Labored Spontaneous Respiratory Depth Normal Normal Respiratory Pattern Regular Regular Blood Pressure 145/78 H Blood Pressure [Right Arm] 125/78 111/72 Blood Pressure Mean 100 Blood Pressure Mean [Right Arm] 93 85 Blood Pressure Position [Right Arm] Lying Lying Pulse Oximetry 98 97 94 Oxygen Delivery Method Room Air Room Air Room Air Sepsis Recent Fever Within 48 Hours No Sepsis New/Unexplained Change in Mental Status N/A Sepsis Action Taken by Nursing No Action Required Home Medications Current Medication List: was personally reviewed by me Laboratory Data Attestation: I reviewed the patient's lab results. Result diagrams: 03/09/20 15:00 03/09/20 15:00 Lab Results 03/09/20 03/09/20 03/09/20 Range/Units 14:49 14:49 15:00 WBC 4.19 L (4.8-10.8) K/uL RBC 3.77 L (4.7-6.1) M/uL Hgb 11.4 L (14.0-18.0) g/dL Hct 35.1 L (42-52) % MCV 93.1 (80-100) fL MCH 30.2 (25-34) pg MCHC 32.5 (32-36) g/dL RDW Std Deviation 56.1 H (36.4-46.3) fL RDW Coeff of Lilia 16.4 H (11.5-14.5) % Plt Count 229 (130-400) K/uL MPV 9.0 (7.4-10.4) fL Immature Gran % (Auto) 1.4 % Neut % (Auto) 87.2 % Lymph % (Auto) 8.1 % [place] % (Auto) 2.6 % Eos % (Auto) 0.2 % Baso % (Auto) 0.5 % Neut # (Auto) 3.65 (1.4-6.5) K/uL Lymph # (Auto) 0.34 L (1.2-3.4) K/uL [place] # (Auto) 0.11 (0.11-0.59) K/uL Eos # (Auto) 0.01 (0-0.5) K/uL Baso # (Auto) 0.02 (0-0.2) K/uL Immature Gran # (Auto) 0.06 H (0.00-0.02) K/uL Tear Drop Cells 1+ PT (9.0-12.0) Seconds INR (0.9-1.1) APTT (21.0-31.0) Seconds PTT Ratio Sodium (136-145) mmol/L Potassium (3.5-5.1) mmol/L Chloride (98-107) mmol/L Carbon Dioxide (21-32) mmol/L Anion Gap (3-11) BUN (7-18) mg/dl Creatinine (0.6-1.4) mg/dl Est Cr Clr Drug Dosing ml/min Est GFR ( Amer) Est GFR (Non-Af Amer) BUN/Creatinine Ratio (10-20) Glucose (70-99) mg/dl Lactate (0.4-2.0) mmol/L Calcium (8.5-10.1) mg/dl Total Bilirubin (0.2-1) mg/dl AST (15-37) U/L ALT (12-78) U/L Alkaline Phosphatase (45-117) U/L Troponin I (0-0.045) ng/ml Total Protein (6.4-8.2) gm/dl Albumin (3.4-5.0) gm/dl Globulin (2.5-4.0) gm/dl Albumin/Globulin Ratio (0.9-2) Lipase (73-393) U/L COVID-19 [facility] SARS-[facility]-2, RNA, NAAT NEGATIVE (NEGATIVE) 03/09/20 03/09/20 03/09/20 Range/Units 15:00 15:00 16:49 WBC (4.8-10.8) K/uL RBC (4.7-6.1) M/uL Hgb (14.0-18.0) g/dL Hct (42-52) % MCV (80-100) fL MCH (25-34) pg MCHC (32-36) g/dL RDW Std Deviation (36.4-46.3) fL RDW Coeff of Lilia (11.5-14.5) % Plt Count (130-400) K/uL MPV (7.4-10.4) fL Immature Gran % (Auto) % Neut % (Auto) % Lymph % (Auto) % [place] % (Auto) % Eos % (Auto) % Baso % (Auto) % Neut # (Auto) (1.4-6.5) K/uL Lymph # (Auto) (1.2-3.4) K/uL [place] # (Auto) (0.11-0.59) K/uL Eos # (Auto) (0-0.5) K/uL Baso # (Auto) (0-0.2) K/uL Immature Gran # (Auto) (0.00-0.02) K/uL Tear Drop Cells PT 11.7 (9.0-12.0) Seconds INR 1.1 (0.9-1.1) APTT 28.5 (21.0-31.0) Seconds PTT Ratio 1.0 Sodium 131 L (136-145) mmol/L Potassium 3.5 (3.5-5.1) mmol/L Chloride 96 L (98-107) mmol/L Carbon Dioxide 24 (21-32) mmol/L Anion Gap 12.0 H (3-11) BUN 15 (7-18) mg/dl Creatinine 0.58 L (0.6-1.4) mg/dl Est Cr Clr Drug Dosing 180.7 ml/min Est GFR ( Amer) 135.9 Est GFR (Non-Af Amer) 117.2 BUN/Creatinine Ratio 26.7 H (10-20) Glucose 152 H (70-99) mg/dl Lactate 0.9 (0.4-2.0) mmol/L Calcium 9.2 (8.5-10.1) mg/dl Total Bilirubin 0.7 (0.2-1) mg/dl AST 22 (15-37) U/L ALT 31 (12-78) U/L Alkaline Phosphatase 178 H (45-117) U/L Troponin I < 0.015 (0-0.045) ng/ml Total Protein 6.4 (6.4-8.2) gm/dl Albumin 2.9 L (3.4-5.0) gm/dl Globulin 3.5 (2.5-4.0) gm/dl Albumin/Globulin Ratio 0.8 L (0.9-2) Lipase 34 L (73-393) U/L COVID-19 Eval Order SARS-CoV-2, RNA, NAAT (NEGATIVE) Administered Medications Docusate Sodium (Docusate Sodium 100 Mg Cap) 100 mg PO BID DESTINEY Stop: 04/08/20 20:59 Last Admin: 03/09/20 19:54 Dose: 100 mg Documented by: [id number] Hydromorphone HCl (Hydromorphone Inj 0.5 Mg/0.5 Ml Syr) 0.5 mg IV Q4H PRN PRN Reason: Pain Stop: 03/23/20 18:37 Last Admin: 03/09/20 18:44 Dose: 0.5 mg Documented by: [id number] Heparin Sodium/Dextrose (Heparin Sodium/Dextrose) 25,000 units in 500 mls @ 31 mls/hr IV .Q16H8M DESTINEY; Protocol Stop: 04/08/20 15:59 Last Titration: 03/09/20 19:17 Dose: 1,550 units/hr, 31 mls/hr Documented by: [id number] Cosigned by: [id number] Admin: 03/09/20 16:17 Dose: 1,550 units/hr, 31 mls/hr Documented by: [id number] Cosigned by: [id number] Famotidine 20 mg/ Syringe 5 mls @ 2.5 mls/min IV Q12H PRN PRN Reason: heartburn Stop: 04/08/20 18:59 Last Admin: 03/09/20 19:53 Dose: 2.5 mls/min Documented by: [id number] Discontinued Medications Heparin Sodium (Porcine) (Heparin Sod (Porcine) 1000 Unit/Ml 10 Ml Vial) Confirm Administered Dose 10,000 units .ROUTE .STK-MED ONE Stop: 03/09/20 16:14 Last Admin: 03/09/20 16:18 Dose: 7,000 units Documented by: [id number] Cosigned by: [id number] Heparin Sodium/Dextrose (Heparin Iv Standard With Bolus) 1 ea IV NOW STA; Protocol Stop: 03/09/20 15:54 Last Admin: 03/09/20 18:46 Dose: Not Given Documented by: [id number] Hydromorphone HCl (Hydromorphone Inj 0.5 Mg/0.5 Ml Syr) 0.5 mg IV Q20M PRN PRN Reason: Pain Stop: 03/23/20 14:50 Last Admin: 03/09/20 16:19 Dose: 0.5 mg Documented by: [id number] Admin: 03/09/20 14:57 Dose: 0.5 mg Documented by: [id number] Ondansetron HCl (Ondansetron Inj 2 Mg/Ml 2 Ml Vial) 4 mg IV NOW STA Stop: 03/09/20 14:52 Last Admin: 03/09/20 14:57 Dose: 4 mg Documented by: [id number] Blood Pressure Blood Pressure Findings: Normal blood pressure Discharge Plan Visit Data Chief Complaint: Abnormal Labs/Diagnostic Testing Stated Complaint: CT SHOWNING BILAT PE,PAIN CONTROL,SENT FOR ADMIT ED Provider: Aaron Lerner Discharge Problem: Pulmonary embolism, Abdominal pain, Superior mesenteric vein thrombosis Patient Disposition: Admitted As Inpatient Condition: Good Discharge Instructions Interventions: ED Discharge Assessment Last Done: 03/09/20 18:07 Discharge Problem: Pulmonary embolism Qualifiers: Pulmonary embolism type: unspecified Chronicity: acute Acute cor pulmonale presence: unspecified Qualified Code(s): I26.99 - Other pulmonary embolism without acute cor pulmonale Abdominal pain Qualifiers: Abdominal location: generalized Qualified Code(s): R10.84 - Generalized abdominal pain
[2020-03-09] MEDS ORDERED: HEPARIN SOD (PORCINE) 1000 UNIT/ML 10 ML VIAL ONE (16:13)
[2020-03-09] MEDS: HEPARIN SODIUM/DEXTROSE 25,000 UNITS/500 ML BAG IV SCH (16:17)
--- NOTE | 2020-03-09 18:03 | History & Physical Report ---
Date of Service March 09, 2020 Assessment & Plan (1) Abdominal pain: This is a 54yo M with a PMH of metastatic pancreatic cancer on chemotherapy, HTN, DM II and other medical problems listed below who presents from [facility] [place] [facility] after chemo infusion today with chest and abdom inal pain has been worsening over the past week and was found to have bilateral PEs, new partially occluding SMV thrombosis and abdominal ascites. 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 Also with chronic occlusion of the splenic vein Discussed with Dr. Nassar of general surgery - no surgical indication to treat this - anticoagulation is the treatment of choice Continue IV heparin (3) Pulmonary embolism: Bilateral lower lobe pulmonary emboli seen on CT chest Hypercoagulable state with pancreatic cancer Continue IV heparin (4) Dilation of pancreatic duct: CT abd/pelvis with re-demonstrated pancreatic mass and upstream pancreatic ductal dilation Discussed CT findings with Dr. Faustin, manager distribution center for GI, who recommended MRCP this evening Clears for now, NPO after midnight in case patient is a candidate for ERCP GI consult placed (5) Pancreatic carcinoma metastatic to liver: Pancreatic cancer diagnosed in May 2018 Receives oncologic care at [facility] in [place] from Dr. Llamas and chemo infusions at [facility] every 2 weeks Requested records from [facility] - patient unsure of current chemo regimen, most recent CT a/p from 2 mo prior Last chemo infusion earlier today (6) Ascites: CT a/p with progressive peritoneal carcinomatosis with moderate abdominopelvic ascites Ascites present for the past week, correlating with increased pain Therapeutic paracentesis indicated - will consult radiology (7) Hypertension: Continue valsartan-hctz (8) DM type 2 (diabetes mellitus, type 2): A1c 9.4 in August Hold home agents SSI while in-patient BSG AC HS DVT Ppx: IV heparin Code status: FULL PCP: HILARIA Carmona Dispo: Admitted to PCU Updated patient's over the phone (Sandi, cell # [phone]). She would appreciate daily updates. Patient seen in collaboration with Dr. Arciniega. Please see addendum. History of Present Illness Chief Complaint: abdominal pain Primary Care Provider: Felipe Carmona PA-C This is a 54yo M with a PMH of metastatic pancreatic cancer on chemotherapy, HTN, DM II and other medical problems listed below [facility] infusion today with chest and abdominal pain has been worsening over the past week. Was diagnosed with pancreatic cancer in May 2018 and receives oncologic care at [facility] in [place] from Dr. Llamas. Has been receiving chemotherapy infusions every 2 weeks (patient unclear on exact treatment course) and underwent CT chest and CT abd/pelvis today after complaining of abdominal pain. CT chest revealed bilateral lower lobe pulmonary emboli and CT abd/pelvis showed pancreatic mass re-demonstrated with abutment of the adjacent lesser curvature of the stomach and superior mesenteric artery with upstream pancreatic ductal dilation, new partially occlusive thrombus of the superior mesenteric vein, chronic occlusion of the splenic vein, progressive peritoneal carcinomatosis with moderate abdominopelvic ascites, mild intrahepatic biliary ductal dilation of the left hepatic lobe with heterogeneous enhancement of the liver and multifocal colonic wall thickening may reflect areas of partial distention. Patient has had abdominal pain for the past month intermittently but has had a fullness and pressure that has been present along with distention for the past week. Has been nauseated without vomiting and has early satiety with worsening pain after eating. One episode of bright red blood mixed in with formed bowel movement 5 days ago with a few episodes of diarrhea since then without blood. No melena. Has not been passing flatus today. Denies fever, chills, lightheadedness, headache, chest pain, palpitations, shortness of breath, vomiting, dysuria or melena. Allergies Allergy/AdvReac Type Severity Reaction Status Date / Time Penicillins Allergy Severe Swelling Verified 03/09/20 16:16 of Lip/Tongue/Throat Sulfa (Sulfonamide Allergy Severe Swelling Verified 03/09/20 16:16 Antibiotics) of Lip/Tongue/Throat Torcan AdvReac Intermediate Muscle Pain Uncoded 03/09/20 16:16 Home Medications Medication Instructions Recorded Confirmed Type Jardiance 10 mg PO QAM 06/17/18 03/09/20 History metoclopramide HCl 10 mg PO Q6H PRN 08/06/18 03/09/20 History atorvastatin 20 mg PO QAM 09/01/18 03/09/20 History valsartan-hydrochlorothiazide 1 tab PO QAM 09/01/18 03/09/20 History docusate sodium [Col-Rite] 100 mg PO BID #60 cap 09/03/18 03/09/20 Rx fentanyl 50 mcg TOPICAL [id number] 03/09/20 03/09/20 History glipizide 5 mg PO DAILY 03/09/20 03/09/20 History ondansetron 4 mg PO Q8H PRN 03/09/20 03/09/20 History oxycodone 10 mg PO .Q4-6HRS PRN 03/09/20 03/09/20 History Past Med/Surg History Medical History (Updated 03/09/20 @ 21:01 by Gabriella Campos PA-C) DM type 2 (diabetes mellitus, type 2) Dyslipidemia Hypertension Pancreatic adenocarcinoma Pancreatic carcinoma metastatic to liver Surgical History (Updated 03/09/20 @ 20:52 by Gabriella Campos PA-C) H/O Spinal surgery Family History Other No significant family history Social History Smoking Status: Former smoker Tobacco Type: Smokeless Tobacco (Dip or Chew) Smoking End Date: 2013; Second Hand Exposure: No; Hx Alcohol Use: No Hx Substance Use: No Preferred Language: Thai Communication Ability: Effective Bias Cutting Machine Operator Required: No Beliefs That Will Affect Care: None marital status: Current Living Situation: Spouse Other Information That Helps Us Care for You: No Feels Safe at Home: Yes Safety Concerns: Feels Safe At This Time Assistive Devices: Glasses Review of Systems Review of Systems: At least ten systems reviewed and negative except as noted in the HPI. Physical Exam Physical Exam: General Appearance: vitals as above, NAD, sitting up in bed, pleasant, conversing easily Head: normocephalic, atraumatic Eyes: normal inspection, PERRL, conjunctivae normal, anicteric sclerae ENT: external ear and nose normal, oropharynx normal Neck: normal visual inspection, trachea midline, no thyromegaly Respiratory: normal respiratory effort, lungs clear to auscultation, diminished at bases. No wheeze, rales, rhonchi. No accessory muscle use Cardiovascular: regular rate, rhythm, no murmur appreciated, normal peripheral pulses, no BLE edema. Vessels: no JVD Chest: normal inspection of chest + Port L chest Abdomen/GI: hypoactive bowel sounds, distended and firm, tender in RUQ, no hepatosplenomegaly Extremities/Musculoskeletal: no cyanosis or clubbing, extremities motor strength 5/5 Neurologic: PERRL, EOMI, accommodation nl, no face palsy, no dysarthria, CN's II-XI intact bilaterally and moves all extremities Psychiatric: A+Ox3, euthymic affect Skin: no rashes, normal color, warm/dry Results & Data Results & Data ([facility]) Vital Signs (Past 12 Hours) Vital Signs Temp Pulse Pulse Resp BP BP Pulse Ox 03/09/20 17:58 85 16 126/88 94 03/09/20 16:23 88 16 111/72 94 03/09/20 14:38 88 20 125/78 97 03/09/20 14:22 36.5 C 97 H 20 145/78 H 98 Laboratory Results Short CBC 03/09/20 Range/Units 15:00 WBC 4.19 L (4.8-10.8) K/uL Hgb 11.4 L (14.0-18.0) g/dL Hct 35.1 L (42-52) % Plt Count 229 (130-400) K/uL BMP 03/09/20 15:00 Sodium 131 L Potassium 3.5 Chloride 96 L Carbon Dioxide 24 BUN 15 Creatinine 0.58 L Glucose 152 H Calcium 9.2 Cardiac Enzymes 03/09/20 Range/Units 15:00 Troponin I < 0.015 (0-0.045) ng/ml Liver Function 03/09/20 Range/Units 15:00 Total Bilirubin 0.7 (0.2-1) mg/dl AST 22 (15-37) U/L ALT 31 (12-78) U/L Alkaline Phosphatase 178 H (45-117) U/L Albumin 2.9 L (3.4-5.0) gm/dl Diagnostic Findings CT chest: IMPRESSION: 1. Bilateral lower lobe pulmonary emboli. 2. Small left pleural effusion. 3. Small faint ground glass densities within the lower lobes posteriorly. These are nonspecific and could be due to mild inflammatory/infectious change or less likely developing pulmonary infarcts. 4. These findings were discussed with the patient's ammonia solution preparer, Jenna Moser, at 1:52 PM on 03/09/2020. CT abdomen/pelvis with IV and oral contrast: IMPRESSION: 1. Pancreatic mass re-demonstrated with abutment of the adjacent lesser curvature of the stomach and superior mesenteric artery with upstream pancreatic ductal dilation. 2. 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 Chronic occlusion of the splenic vein. 3. Progressive peritoneal carcinomatosis with moderate abdominopelvic ascites. 4. Mild intrahepatic biliary ductal dilation of the left hepatic lobe with heterogeneous enhancement of the liver. 5. Cholelithiasis with mild gallbladder wall thickening. 6. Multifocal colonic wall thickening may reflect areas of partial distention. Serosal metastatic implants not excluded. 7. No bowel obstruction 8. Small left pleural effusion with bilateral pulmonary emboli. Code Status & VTE Plan VTE Prophylaxis Plan VTE Prophylaxis will be ordered: Yes Supervising Physician Co-Signing Physician Notes I have seen and examined the patient and have discussed the case with the provider above. I agree with the assessment and plan as stated. 54 yo M with increasing distension and abdominal bloating x 5 days. Clinical picture is most consistent with malignant ascites in setting of peritoneal carcinomatosis. Physical exam reveals S1/2 heard on cardiac auscultation without evidence of murmur, clear lungs to auscultation bilaterally, abdomen that is distended and tense with generalized abdominal pain, worse on the right side. No gross focal neuro deficits and he is oriented and cooperative. Agree with plan for Surgery and GI consults. Likely paracentesis for tomorrow. Also with acute DVT/PE present and on heparin drip which will need to be held prior to procedure. DO Demian (1) Pulmonary embolism Acute cor pulmonale presence: unspecified Chronicity: acute Pulmonary embolism type: unspecified Qualified Code(s): I26.99 - Other pulmonary embolism without acute cor pulmonale (2) Abdominal pain Abdominal location: generalized Qualified Code(s): R10.84 - Generalized abdominal pain
[2020-03-09] MEDS ORDERED: ACETAMINOPHEN 325 MG TAB PO PRN (18:38)
[2020-03-09] MEDS ORDERED: GLUCAGON FOR INJ 1 MG VIAL SQ PRN (18:38)
[2020-03-09] MEDS ORDERED: CONSULT PHARMACY STA (18:38)
[2020-03-09] MEDS ORDERED: GLUCOSE 10 TABS/TUBE PO PRN (18:38)
[2020-03-09] MEDS ORDERED: DEXTROSE 50% 50 ML SYRINGE IV PRN (18:38)
[2020-03-09] MEDS ORDERED: GLUCOSE 40% GEL 15 GM TUBE PO PRN (18:38)
[2020-03-09] MEDS ORDERED: CARBOHYDRATES FOR HYPOGLYCEMIA PO PRN (18:38)
[2020-03-09] MEDS ORDERED: FAMOTIDINE 20 MG in SYRINGE 3 ML IV PRN (18:52)
[2020-03-09] MEDS: DOCUSATE SODIUM 100 MG CAP PO SCH (19:54)
--- NOTE | 2020-03-09 19:56 | Surgery Consultation ---
Date of Consultation March 09, 2020 Assessment & Plan (1) Abdominal pain: Regarding the thrombus of the superior mesenteric vein there is no surgical indication to treat this , anticoagulation is the treatment of choice Regarding his abdominal distention patient would benefit from paracentesis that can be done by radiologist The patient is on Protonix for his heartburn at this time he is not really hungry but I have no contraindication for him to have I diet as tolerated probably benefit and be able to tolerate a diet once the definitive decompressed by paracentesis Present on Admission?: Yes (2) Pancreatic adenocarcinoma: History of Present Illness Attending Physician: Veronica Arciniega, DO History of Present Illness We were asked to see the patient this evening at request of Dr. Arciniega for new thrombus of the superior mesenteric vein longstanding thrombus of the splenic vein The patient has diagnosed with pancreatic cancer in May 2018 at that time is unresectable it was encasing the superior mesenteric artery and has been on on chemotherapy since then he came into the emergency room this evening at the request of the oncologist after the CAT scan showed bilateral pulmonary embolus extension of the abdominal carcinomatosis likely malignant ascites and the above description of the new thrombus of the superior mesenteric vein The patient has been sick for approximately 1 week and he stated that he has had some heartburn the last week or so as his belly has gotten a little bit more distended Allergies Allergy/AdvReac Type Severity Reaction Status Date / Time Penicillins Allergy Severe Swelling Verified 03/09/20 16:16 of Lip/Tongue/Throat Sulfa (Sulfonamide Allergy Severe Swelling Verified 03/09/20 16:16 Antibiotics) of Lip/Tongue/Throat Torcan AdvReac Intermediate Muscle Pain Uncoded 03/09/20 16:16 Home Medications Medication Instructions Recorded Confirmed Type Jardiance 10 mg PO QAM 06/17/18 03/09/20 History metoclopramide HCl 10 mg PO Q6H PRN 08/06/18 03/09/20 History atorvastatin 20 mg PO QAM 09/01/18 03/09/20 History valsartan-hydrochlorothiazide 1 tab PO QAM 09/01/18 03/09/20 History docusate sodium [Col-Rite] 100 mg PO BID #60 cap 09/03/18 03/09/20 Rx fentanyl 50 mcg TOPICAL [id number] 03/09/20 03/09/20 History glipizide 5 mg PO DAILY 03/09/20 03/09/20 History ondansetron 4 mg PO Q8H PRN 03/09/20 03/09/20 History oxycodone 10 mg PO .Q4-6HRS PRN 03/09/20 03/09/20 History Patient History Medical History DM type 2 (diabetes mellitus, type 2) Dyslipidemia Hypertension Pancreatic adenocarcinoma Pancreatic carcinoma metastatic to liver Social History Smoking Status: Never smoker Second Hand Exposure: No; Hx Alcohol Use: Yes Alcohol type: beer Hx Substance Use: No Preferred Language: Syriac Communication Ability: Effective Regional Sales Engineer Required: No Beliefs That Will Affect Care: None marital status: Current Living Situation: Spouse Other Information That Helps Us Care for You: No Feels Safe at Home: Yes Safety Concerns: Feels Safe At This Time Assistive Devices: Glasses Physical Exam Physical Exam: Patient is alert coherent comfortable at this time he does have a fentanyl patch and also is receiving 0.5 mg of IV Dilaudid every 4 hours He is not short of breath Eyes: PERRL, conjunctivae normal, anicteric sclerae Gastrointestinal (Abdomen): The abdomen is distended there is no palpable masses although there is a fluid wave in the upper abdomen the patient does not have any discomfort on palpation Results & Data ([facility]) Vital Signs (Past 12 Hours) Vital Signs Temp Pulse Pulse Resp BP BP Pulse Ox 03/09/20 18:56 37.0 C 92 H 16 113/76 98 03/09/20 18:15 36.5 C 86 18 122/79 99 03/09/20 17:58 85 16 126/88 94 03/09/20 16:23 88 16 111/72 94 03/09/20 14:38 88 20 125/78 97 03/09/20 14:22 36.5 C 97 H 20 145/78 H 98 CAT scan and the labs was reviewed PG Care Time/CCT Total # of Minutes Spent Total Time Spent with Patient: Total time spent is greater than 50% in coordination of care (as documented) at patient's floor/unit and/or counseling patient: Coding Level of Care Code 57224 Inpt Consult Level 4 Diagnoses Abdominal pain R10.9 Pancreatic adenocarcinoma C25.9
[2020-03-09] MEDS: INSULIN ASPART 100 UNITS/ML 3 ML PEN SC SCH (20:52)
[2020-03-09 22:55] LABS: Partial Thromboplastin Ratio 4.8
[2020-03-09 23:03] LABS: Partial Thromboplastin Time 132.9 Seconds (21.0-31.0)
[2020-03-09] MEDS: CHECK fentaNYL PATCH PLACEMENT SCH (23:51)
[2020-03-10] MEDS ORDERED: HEPARIN 100 UNIT/ML 5ML FLUSH FLUSH PRN (02:21)
[2020-03-10 07:34] LABS: Hematocrit (blood only) 30.6 % (42-52); Hemoglobin 10.1 g/dL (14.0-18.0); Mean Corpuscular Hemoglobin 30.7 pg (25-34); Mean Platelet Volume 9.3 fL (7.4-10.4); Platelet Count 257 K/uL (130-400); RDW Coefficient of Variation 16.3 % (11.5-14.5); RDW Standard Deviation 55.7 fL (36.4-46.3); Red Blood Count 3.29 M/uL (4.7-6.1); White Blood Count 6.42 K/uL (4.8-10.8)
[2020-03-10 07:41] LABS: Estimated Average Glucose 203 mg/dl; Hemoglobin A1C 8.7 % (4.5-5.6)
[2020-03-10] MEDS: CHECK fentaNYL PATCH PLACEMENT SCH ×2 (07:43→16:38)
--- NOTE | 2020-03-10 07:49 | Magnetic Resonance Report ---
MR MRCP HISTORY: pancreatic ductal dilation, known metastatic pancreatic cancer TECHNIQUE: MRCP of the abdomen was performed without contrast according to standard department protoc ol. COMPARISON STUDY: Abdomen and pelvis CT 03/09/2020. FINDINGS: Small left pleural effusion, unchanged. Large amount of ascites is again noted. Overall, alvarez boptimal study due to the motion artifact. Specifically, the biliary and pancreatic ducts as well as the gallbladder not well visualized. The proximal main pancreatic duct remains dilated up to the leve l of the pancreatic head mass. This measures up to 8 mm in diameter. Pancreatic head mass measures ap proximately 2.7 x 1.8 cm. Mild intrahepatic bile duct dilatation within the left hepatic lobe remains unchanged. The common bile duct is normal in caliber. There is severe narrowing within the distal po rtal vein with chronic occlusion of the splenic vein near the portosplenic confluence. Small amount o f thrombus within the portal vein is better appreciated on the same day abdomen and pelvis CT. Infilt ration of the omentum consistent with peritoneal carcinomatosis. No hydronephrosis. No definite hepat ic or splenic masses. The adrenal glands are unremarkable. Probable punctate stone within the gallbla dder. IMPRESSION: 1. Suboptimal study due to motion artifact. However, overall, no significant change compared to the r ecent CT examination. 2. Redemonstration of the pancreatic head mass with dilatation of the proximal main pancreatic duct. This remains unchanged. 3. Mild left intrahepatic bile duct dilatation remains unchanged. 4. Cholelithiasis. 5. Partial occlusive thrombus within the portosplenic confluence is better appreciated on the same da y CT examination. There is also chronic occlusion of the splenic vein. 6. Small left pleural effusion. 7. Peritoneal carcinomatosis in a large amount of ascites. ACT 112: Negative or not required by law. Electronically signed by: Nilesh Felix M.D. 03/10/2020 7:48 AM
[2020-03-10] MEDS: HYDROmorphone INJ 0.5 MG/0.5 ML SYR IV PRN ×4 (07:52→16:49)
[2020-03-10 07:53] LABS: Partial Thromboplastin Ratio 2.6
[2020-03-10 07:56] LABS: Partial Thromboplastin Time 73.5 Seconds (21.0-31.0)
[2020-03-10] MEDS ORDERED: PNEUMOCOCCAL Polysaccharide Vaccine 25mcg/0.5mL vial/Syr IM ONE (08:00)
[2020-03-10] MEDS: INSULIN ASPART 100 UNITS/ML 3 ML PEN SC SCH ×3 (08:04→16:58)
[2020-03-10 08:11] LABS: Albumin Level 2.5 gm/dl (3.4-5.0); BUN Creatinine Ratio 35.6 (10-20); Calcium 8.9 mg/dl (8.5-10.1); Creatinine Clr Calc Pharmacy 168.4 ml/min; Est GFR (African American) 132.2; Est GFR (Non-African American) 114.1; Potassium 3.3 mmol/L (3.5-5.1)
[2020-03-10 08:14] LABS: Albumin Globulin Ratio 0.8 (0.9-2); Bilirubin,Total 0.7 mg/dl (0.2-1); Globulin 3.1 gm/dl (2.5-4.0); Total Protein 5.6 gm/dl (6.4-8.2)
[2020-03-10] MEDS ORDERED: VALSARTAN 80 MG TAB PO SCH (09:00)
[2020-03-10] MEDS ORDERED: hydroCHLOROthiazide 25 MG TAB PO SCH (09:00)
[2020-03-10] MEDS ORDERED: fentaNYL 50 MCG/HR TDSY TD SCH (09:00)
[2020-03-10] MEDS: ATORVASTATIN 20 MG TAB PO SCH (09:20)
[2020-03-10] MEDS: CALCIUM CARBONATE 500 MG CHEWABLE TAB PO PRN ×2 (09:20→16:50)
[2020-03-10] MEDS: DOCUSATE SODIUM 100 MG CAP PO SCH ×2 (09:21→20:32)
--- NOTE | 2020-03-10 09:31 | Hospitalist Progress Note ---
Date of Service March 10, 2020 Assessment & Plan (1) Pulmonary embolism: (2) Abdominal pain: 54-year-old male with history of pancreatic cancer with liver metastasis, on chemotherapy Diabetes type II, hypertension, presenting with chest and abdominal pain Chest pain Due to acute bilateral pulmonary embolism, lower lobes --In the setting of metastatic pancreatic cancer --Hemodynamically stable, saturating well on room air --Currently on heparin drip, tolerating well --We will discuss with patient's oncologist in [facility] regarding anticoagulation post discharge Abdominal pain Multifactorial: Large volume ascites, with peritoneal carcinomatosis --Discussed with GI service --Agree with ultrasound-guided paracentesis Hold heparin at 8 AM for ultrasound-guided paracentesis to be done at 2 PM --Dilaudid as needed Fentanyl patch --Reported increased lower back pain around [address] abdomen pelvis ordered to rule out retroperitoneal hemorrhage, patient is on heparin drip Dilaudid increased to 1 mg every 4 hours 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 Pancreatic cancer with liver metastasis, with pancreatic duct dilatation --Discussed with GI, no plans for ERCP at this point Diabetes type 2 --A1c 9.4 last August --Usually on Jardiance, glipizide --Continue insulin sliding scale --Consult pharmacy glycemic control Hypertension --Pressure on the lower side Hold valsartan, hydrochlorothiazide DVT prophylaxis Continue heparin drip Disposition Lives at home with Admission and Anticipated Discharge Date Admission Date: March 09, 2020 Subjective Follow-up for acute bilateral PE, abdominal pain, peritoneal carcinomatosis with large volume ascites, Partial SMV thrombosis, pancreatic cancer Patient seen resting in bed, not in distress States pain is more controlled today compared to yesterday Abdominal pain is described as mild, moderate at worst Has mild nausea No shortness of breath, chest pain, palpitations, dizziness, headache No Signs of bleeding No other symptoms Review of Systems Review of Systems: All systems reviewed & are unremarkable except as noted in Subjective Physical Exam Physical Exam: General- oriented x 3, not in distress, speaks in sentences with no effort or accessory muscle use Head- atraumatic Eyes- PERRL, EOMI, anicteric ENT- oropharynx clear Neck- supple, no JVD, no adenopathy, no thyromegaly; carotids +2/2, no bruits appreciated Lungs- clear to auscultation bilaterally, no rales/wheezes Heart- normal rate, regular rhythm; no murmur, no gallop, no rub appreciated Abdomen- normal bowel sounds, mildly distended, soft, mild tenderness on the central area Extremities- no pretibial edema, no calf tenderness; peripheral pulses intact Neuro- alert, oriented x 3; CN 2-12 grossly intact; motor 5/5 bilaterally;sens ation 100% on all extremities; no other gross focal neurologic deficits Skin- warm & dry Results & Data Results & Data ([facility]) Vital Signs (Past 12 Hours) Vital Signs Temp Pulse Pulse Resp BP Pulse Ox 03/10/20 07:30 36.7 C 72 18 115/63 96 03/10/20 03:07 36.7 C 80 18 106/69 97 03/10/20 00:09 36.8 C 89 18 104/67 95 03/09/20 22:20 85 Laboratory Results Laboratory Results - last 24 hr 03/09/20 03/09/20 03/10/20 20:11 22:27 07:13 WBC 6.42 RBC 3.29 L Hgb 10.1 L Hct 30.6 L MCV 93.0 MCH 30.7 MCHC 33.0 RDW Std Deviation 55.7 H RDW Coeff of Lilia 16.3 H Plt Count 257 MPV 9.3 APTT 132.9 H* PTT Ratio 4.8 Sodium Potassium Chloride Carbon Dioxide Anion Gap BUN Creatinine Est Cr Clr Drug Dosing Est GFR ( Amer) Est GFR (Non-Af Amer) BUN/Creatinine Ratio Glucose POC Glucose 176 H Estimat Average Glucose Hemoglobin A1c Calcium Total Bilirubin AST ALT Alkaline Phosphatase Total Protein Albumin Globulin Albumin/Globulin Ratio 03/10/20 03/10/20 03/10/20 07:13 07:13 07:13 WBC RBC Hgb Hct MCV MCH MCHC RDW Std Deviation RDW Coeff of Lilia Plt Count MPV APTT 73.5 H* PTT Ratio 2.6 Sodium 132 L Potassium 3.3 L Chloride 96 L Carbon Dioxide 25 Anion Gap 11.0 BUN 22 H Creatinine 0.62 Est Cr Clr Drug Dosing 168.4 Est GFR ( Amer) 132.2 Est GFR (Non-Af Amer) 114.1 BUN/Creatinine Ratio 35.6 H Glucose 141 H POC Glucose Estimat Average Glucose 203 Hemoglobin A1c 8.7 H Calcium 8.9 Total Bilirubin 0.7 AST 21 ALT 28 Alkaline Phosphatase 155 H Total Protein 5.6 L Albumin 2.5 L Globulin 3.1 Albumin/Globulin Ratio 0.8 L 03/10/20 03/10/20 03/10/20 07:26 11:06 14:03 WBC RBC Hgb Hct MCV MCH MCHC RDW Std Deviation RDW Coeff of Lilia Plt Count MPV APTT 59.6 H* PTT Ratio 2.1 Sodium Potassium Chloride Carbon Dioxide Anion Gap BUN Creatinine Est Cr Clr Drug Dosing Est GFR ( Amer) Est GFR (Non-Af Amer) BUN/Creatinine Ratio Glucose POC Glucose 152 H 275 H Estimat Average Glucose Hemoglobin A1c Calcium Total Bilirubin AST ALT Alkaline Phosphatase Total Protein Albumin Globulin Albumin/Globulin Ratio 03/10/20 16:23 WBC RBC Hgb Hct MCV MCH MCHC RDW Std Deviation RDW Coeff of Lilia Plt Count MPV APTT PTT Ratio Sodium Potassium Chloride Carbon Dioxide Anion Gap BUN Creatinine Est Cr Clr Drug Dosing Est GFR ( Amer) Est GFR (Non-Af Amer) BUN/Creatinine Ratio Glucose POC Glucose 225 H Estimat Average Glucose Hemoglobin A1c Calcium Total Bilirubin AST ALT Alkaline Phosphatase Total Protein Albumin Globulin Albumin/Globulin Ratio (1) Pulmonary embolism Acute cor pulmonale presence: unspecified Chronicity: acute Pulmonary embolism type: unspecified Qualified Code(s): I26.99 - Other pulmonary embolism without acute cor pulmonale (2) Abdominal pain Abdominal location: generalized Qualified Code(s): R10.84 - Generalized abdominal pain
--- NOTE | 2020-03-10 10:13 | Gastrointestinal Consultation ---
Date of Consultation March 10, 2020 Assessment & Plan (1) Pancreatic carcinoma metastatic to liver: 54 year old male with metatsic pancreatic CA on chemotherapy admitted w/ abdominal pain, CT and MR imaging w/ pancreatic head mass with dilatation of the proximal main pancreatic duct, intrahepatic bile duct dilatation, partial occlusive thrombus within the portosplenic confluence, chronic occlusion of the splenic vein, peritoneal carcinomatosis in a large amount of ascites. His lipase and LFTs are largely unremarkable - No current indication for GI procedure - Can arrange diagnostic/therapeutic paracentesis given concern for malignant ascites Send for cytology, cell count, culture, albumin and protein, lipase - If he needs future paracentesis for suspected malignant ascites, this can be managed through his PCP as an OP Will sign off. Thank you for allowing us to participate in the care of this patient. Please call with any acute changes, questions or concerns. Please see addendum below with additional recommendation from my supervising physician. (2) Pancreatic adenocarcinoma: Supervising Physician Co-Signing Physician Notes I saw and evaluated the patient. He has a history of pancreatic cancer and is presently on suppressive of chemotherapy with a provider out of [place] working for [facility]. 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 The patient reports that he does have some abdominal distention which is thought to be related to malignant ascites. Physical examination No obvious distress no scleral icterus Abdomen with mild protuberance consistent with malignant ascites Impression: Patient with a history of nonresectable pancreatic cancer with slow aggression over the last 1.5 years. At the present time there is no role of an endoscopic evaluation such as ERCP as the patient does not appear to have evidence of biliary obstruction. I would recommend as needed paracentesis for abdominal distention related to suspected malignant ascites. With regard to the mesenteric vein thrombosis perhaps the patient would be best served with anticoagulation. Perhaps it would be reasonable to obtain a medical oncology opinion for long-term recommendations with regard to therapy. Please call with any questions or concerns, GI to sign off History of Present Illness Reason for Consultation: pancreatic CA Requesting Physician: Manuela Attending Physician: Norbert Roy MD History of Present Illness 54 year old male w/metastatic pancreatic cancer on chemotherapy, HTN, T2DM adm itted through the ED From [facility] for abdominal pain. GI asked to evaluate given his history of panc CA. Diagnosed with pancreatic cancer in May 2018 and received oncologic care at [facility] in [place] from Dr. Llamas but infusions locally. Demeed not candidate for resection. Recent CT imaging bilateral lower lobe pulmonary emboli and CT abd/pelvis showed pancreat ic mass re-demonstrated with abutment of the adjacent lesser curvature of the stomach and superior mesenteric artery with upstream pancreatic ductal dilation, new partially occlusive thrombus of the superior mesenteric vein, chronic occlusion of the splenic vein, progressive peritoneal carcinomatosis with moderate abdominopelvic ascites, mild intrahepatic biliary ductal dilation of the left hepatic lobe with heterogeneous enhancement of the liver and multifocal colonic wall thickening may reflect areas of partial distention. He notes he has had intermittent abd pain x 3 months. Explained as fullness and pressure worse when he is sitting or bending over. Notes his appetite has been okay. Mild nausea but no vomiting. Bowels unchanged. No black or bloody stools. CT:. Pancreatic mass redemonstrated with abutment of the adjacent lesser curvature of the stomach and superior mesenteric artery with upstream pancreatic ductal dilation New partially occlusive thrombus of the superior mesenteric vein. Chronic occlusion of the splenic vein. Progressive peritoneal carcinomatosis with moderate abdominopelvic ascites.Mild intrahepatic biliary ductal dilation of the left hepatic lobe with heterogeneous enhancement of the liver.Cholelithiasis with mild gallbladder wall thickening.. Multifocal colonic wall thickening may reflect areas of partial distention. Serosal metastatic implants not excluded. No bowel obstructionSmall left pleural effusion with bilateral pulmonary emboli. MR: Suboptimal study due to motion artifact. However, overall, no significant change compared to the recent CT examination. 2. Redemonstration of the pancreatic head mass with dilatation of the proximal main pancreatic duct. This remains unchanged. 3. Mild left intrahepatic bile duct dilatation remains unchanged. 4. Cholelithiasis. 5. Partial occlusive thrombus within the portosplenic confluence is better appreciated on the same day CT examination. There is also chronic occlusion of the splenic vein. 6. Small left pleural effusion. 7. Peritoneal carcinomatosis in a large amount of ascites. Allergies Allergy/AdvReac Type Severity Reaction Status Date / Time Penicillins Allergy Severe Swelling Verified 03/09/20 16:16 of Lip/Tongue/Throat Sulfa (Sulfonamide Allergy Severe Swelling Verified 03/09/20 16:16 Antibiotics) of Lip/Tongue/Throat Torcan AdvReac Intermediate Muscle Pain Uncoded 03/09/20 16:16 Home Medications Medication Instructions Recorded Confirmed Type Jardiance 10 mg PO QAM 06/17/18 03/09/20 History metoclopramide HCl 10 mg PO Q6H PRN 08/06/18 03/09/20 History atorvastatin 20 mg PO QAM 09/01/18 03/09/20 History valsartan-hydrochlorothiazide 1 tab PO QAM 09/01/18 03/09/20 History docusate sodium [Col-Rite] 100 mg PO BID #60 cap 09/03/18 03/09/20 Rx fentanyl 50 mcg TOPICAL [id number] 03/09/20 03/09/20 History glipizide 5 mg PO DAILY 03/09/20 03/09/20 History ondansetron 4 mg PO Q8H PRN 03/09/20 03/09/20 History oxycodone 10 mg PO .Q4-6HRS PRN 03/09/20 03/09/20 History Patient History Medical History (Updated 03/09/20 @ 21:01 by Gabriella Campos PA-C) DM type 2 (diabetes mellitus, type 2) Dyslipidemia Hypertension Pancreatic adenocarcinoma Pancreatic carcinoma metastatic to liver Surgical History (Updated 03/09/20 @ 20:52 by Gabriella Campos PA-C) H/O Spinal surgery Family History Other No significant family history Social History Smoking Status: Former smoker Tobacco Type: Smokeless Tobacco (Dip or Chew) Smoking End Date: 2013; Second Hand Exposure: No; Hx Alcohol Use: No Hx Substance Use: No Preferred Language: Wolof Communication Ability: Effective Drafter Chief Design Required: No Beliefs That Will Affect Care: None marital status: Current Living Situation: Spouse Other Information That Helps Us Care for You: No Feels Safe at Home: Yes Safety Concerns: Feels Safe At This Time Assistive Devices: Glasses Review of Systems Constitutional: no fever, no chills and no fatigue Respiratory: no cough and no dyspnea Cardiovascular: no chest pain and no dyspnea Gastrointestinal: + abdominal pain and + nausea; no cramping, no change in bowel habits, no diarrhea/loose stools, no blood in stools and no melena Physical Exam Constitutional: no acute distress Neck: trachea midline Respiratory: normal respiratory effort Cardiovascular: Rate/Rhythm: regular rate and regular rhythm Gastrointestinal (Abdomen): Inspection/Auscultation: + abdomen distended and normal bowel sounds Percussion/Palpation: + abdomen tender, abdomen soft and + ascites; no guarding and abdomen not rigid Skin: no rashes, warm and dry Results & Data ([facility]) Vital Signs (Past 12 Hours) Vital Signs Temp Pulse Pulse Resp BP Pulse Ox 03/10/20 07:30 36.7 C 72 18 115/63 96 03/10/20 03:07 36.7 C 80 18 106/69 97 03/10/20 00:09 36.8 C 89 18 104/67 95 03/09/20 22:20 85 Laboratory Results 03/10/20 03/10/20 03/10/20 Range/Units 07:26 07:13 07:13 WBC (4.8-10.8) K/uL RBC (4.7-6.1) M/uL Hgb (14.0-18.0) g/dL Hct (42-52) % MCV (80-100) fL MCH (25-34) pg MCHC (32-36) g/dL RDW Std Deviation (36.4-46.3) fL RDW Coeff of Lilia (11.5-14.5) % Plt Count (130-400) K/uL MPV (7.4-10.4) fL Immature Gran % (Auto) % Neut % (Auto) % Lymph % (Auto) % Kenton % (Auto) % Eos % (Auto) % Baso % (Auto) % Neut # (Auto) (1.4-6.5) K/uL Lymph # (Auto) (1.2-3.4) K/uL Kenton # (Auto) (0.11-0.59) K/uL Eos # (Auto) (0-0.5) K/uL Baso # (Auto) (0-0.2) K/uL Immature Gran # (Auto) (0.00-0.02) K/uL Tear Drop Cells PT (9.0-12.0) Seconds INR (0.9-1.1) APTT 73.5 H* (21.0-31.0) Seconds PTT Ratio 2.6 Sodium (136-145) mmol/L Potassium (3.5-5.1) mmol/L Chloride (98-107) mmol/L Carbon Dioxide (21-32) mmol/L Anion Gap (3-11) BUN (7-18) mg/dl Creatinine (0.6-1.4) mg/dl Est Cr Clr Drug Dosing ml/min Est GFR ( Amer) Est GFR (Non-Af Amer) BUN/Creatinine Ratio (10-20) Glucose (70-99) mg/dl POC Glucose 152 H (70-99) mg/dl Estimat Average Glucose 203 mg/dl Hemoglobin A1c 8.7 H (4.5-5.6) % Lactate (0.4-2.0) mmol/L Calcium (8.5-10.1) mg/dl Total Bilirubin (0.2-1) mg/dl AST (15-37) U/L ALT (12-78) U/L Alkaline Phosphatase (45-117) U/L Troponin I (0-0.045) ng/ml Total Protein (6.4-8.2) gm/dl Albumin (3.4-5.0) gm/dl Globulin (2.5-4.0) gm/dl Albumin/Globulin Ratio (0.9-2) Lipase (73-393) U/L COVID-19 Eval Order SARS-CoV-2, RNA, NAAT (NEGATIVE) 03/10/20 03/10/20 03/09/20 Range/Units 07:13 07:13 22:27 WBC 6.42 (4.8-10.8) K/uL RBC 3.29 L (4.7-6.1) M/uL Hgb 10.1 L (14.0-18.0) g/dL Hct 30.6 L (42-52) % MCV 93.0 (80-100) fL MCH 30.7 (25-34) pg MCHC 33.0 (32-36) g/dL RDW Std Deviation 55.7 H (36.4-46.3) fL RDW Coeff of Lilia 16.3 H (11.5-14.5) % Plt Count 257 (130-400) K/uL MPV 9.3 (7.4-10.4) fL Immature Gran % (Auto) % Neut % (Auto) % Lymph % (Auto) % Kenton % (Auto) % Eos % (Auto) % Baso % (Auto) % Neut # (Auto) (1.4-6.5) K/uL Lymph # (Auto) (1.2-3.4) K/uL Kenton # (Auto) (0.11-0.59) K/uL Eos # (Auto) (0-0.5) K/uL Baso # (Auto) (0-0.2) K/uL Immature Gran # (Auto) (0.00-0.02) K/uL Tear Drop Cells PT (9.0-12.0) Seconds INR (0.9-1.1) APTT 132.9 H* (21.0-31.0) Seconds PTT Ratio 4.8 Sodium 132 L (136-145) mmol/L Potassium 3.3 L (3.5-5.1) mmol/L Chloride 96 L (98-107) mmol/L Carbon Dioxide 25 (21-32) mmol/L Anion Gap 11.0 (3-11) BUN 22 H (7-18) mg/dl Creatinine 0.62 (0.6-1.4) mg/dl Est Cr Clr Drug Dosing 168.4 ml/min Est GFR ( Amer) 132.2 Est GFR (Non-Af Amer) 114.1 BUN/Creatinine Ratio 35.6 H (10-20) Glucose 141 H (70-99) mg/dl POC Glucose (70-99) mg/dl Estimat Average Glucose mg/dl Hemoglobin A1c (4.5-5.6) % Lactate (0.4-2.0) mmol/L Calcium 8.9 (8.5-10.1) mg/dl Total Bilirubin 0.7 (0.2-1) mg/dl AST 21 (15-37) U/L ALT 28 (12-78) U/L Alkaline Phosphatase 155 H (45-117) U/L Troponin I (0-0.045) ng/ml Total Protein 5.6 L (6.4-8.2) gm/dl Albumin 2.5 L (3.4-5.0) gm/dl Globulin 3.1 (2.5-4.0) gm/dl Albumin/Globulin Ratio 0.8 L (0.9-2) Lipase (73-393) U/L COVID-19 Eval Order SARS-CoV-2, RNA, NAAT (NEGATIVE) 03/09/20 03/09/20 03/09/20 Range/Units 20:11 16:49 15:00 WBC (4.8-10.8) K/uL RBC (4.7-6.1) M/uL Hgb (14.0-18.0) g/dL Hct (42-52) % MCV (80-100) fL MCH (25-34) pg MCHC (32-36) g/dL RDW Std Deviation (36.4-46.3) fL RDW Coeff of Lilia (11.5-14.5) % Plt Count (130-400) K/uL MPV (7.4-10.4) fL Immature Gran % (Auto) % Neut % (Auto) % Lymph % (Auto) % Kenton % (Auto) % Eos % (Auto) % Baso % (Auto) % Neut # (Auto) (1.4-6.5) K/uL Lymph # (Auto) (1.2-3.4) K/uL Kenton # (Auto) (0.11-0.59) K/uL Eos # (Auto) (0-0.5) K/uL Baso # (Auto) (0-0.2) K/uL Immature Gran # (Auto) (0.00-0.02) K/uL Tear Drop Cells PT (9.0-12.0) Seconds INR (0.9-1.1) APTT (21.0-31.0) Seconds PTT Ratio Sodium 131 L (136-145) mmol/L Potassium 3.5 (3.5-5.1) mmol/L Chloride 96 L (98-107) mmol/L Carbon Dioxide 24 (21-32) mmol/L Anion Gap 12.0 H (3-11) BUN 15 (7-18) mg/dl Creatinine 0.58 L (0.6-1.4) mg/dl Est Cr Clr Drug Dosing 180.7 ml/min Est GFR ( Amer) 135.9 Est GFR (Non-Af Amer) 117.2 BUN/Creatinine Ratio 26.7 H (10-20) Glucose 152 H (70-99) mg/dl POC Glucose 176 H (70-99) mg/dl Estimat Average Glucose mg/dl Hemoglobin A1c (4.5-5.6) % Lactate 0.9 (0.4-2.0) mmol/L Calcium 9.2 (8.5-10.1) mg/dl Total Bilirubin 0.7 (0.2-1) mg/dl AST 22 (15-37) U/L ALT 31 (12-78) U/L Alkaline Phosphatase 178 H (45-117) U/L Troponin I < 0.015 (0-0.045) ng/ml Total Protein 6.4 (6.4-8.2) gm/dl Albumin 2.9 L (3.4-5.0) gm/dl Globulin 3.5 (2.5-4.0) gm/dl Albumin/Globulin Ratio 0.8 L (0.9-2) Lipase 34 L (73-393) U/L COVID-19 Eval Order SARS-CoV-2, RNA, NAAT (NEGATIVE) 03/09/20 03/09/20 03/09/20 Range/Units 15:00 15:00 14:49 WBC 4.19 L (4.8-10.8) K/uL RBC 3.77 L (4.7-6.1) M/uL Hgb 11.4 L (14.0-18.0) g/dL Hct 35.1 L (42-52) % MCV 93.1 (80-100) fL MCH 30.2 (25-34) pg MCHC 32.5 (32-36) g/dL RDW Std Deviation 56.1 H (36.4-46.3) fL RDW Coeff of Lilia 16.4 H (11.5-14.5) % Plt Count 229 (130-400) K/uL MPV 9.0 (7.4-10.4) fL Immature Gran % (Auto) 1.4 % Neut % (Auto) 87.2 % Lymph % (Auto) 8.1 % Kenton % (Auto) 2.6 % Eos % (Auto) 0.2 % Baso % (Auto) 0.5 % Neut # (Auto) 3.65 (1.4-6.5) K/uL Lymph # (Auto) 0.34 L (1.2-3.4) K/uL Kenton # (Auto) 0.11 (0.11-0.59) K/uL Eos # (Auto) 0.01 (0-0.5) K/uL Baso # (Auto) 0.02 (0-0.2) K/uL Immature Gran # (Auto) 0.06 H (0.00-0.02) K/uL Tear Drop Cells 1+ PT 11.7 (9.0-12.0) Seconds INR 1.1 (0.9-1.1) APTT 28.5 (21.0-31.0) Seconds PTT Ratio 1.0 Sodium (136-145) mmol/L Potassium (3.5-5.1) mmol/L Chloride (98-107) mmol/L Carbon Dioxide (21-32) mmol/L Anion Gap (3-11) BUN (7-18) mg/dl Creatinine (0.6-1.4) mg/dl Est Cr Clr Drug Dosing ml/min Est GFR ( Amer) Est GFR (Non-Af Amer) BUN/Creatinine Ratio (10-20) Glucose (70-99) mg/dl POC Glucose (70-99) mg/dl Estimat Average Glucose mg/dl Hemoglobin A1c (4.5-5.6) % Lactate (0.4-2.0) mmol/L Calcium (8.5-10.1) mg/dl Total Bilirubin (0.2-1) mg/dl AST (15-37) U/L ALT (12-78) U/L Alkaline Phosphatase (45-117) U/L Troponin I (0-0.045) ng/ml Total Protein (6.4-8.2) gm/dl Albumin (3.4-5.0) gm/dl Globulin (2.5-4.0) gm/dl Albumin/Globulin Ratio (0.9-2) Lipase (73-393) U/L COVID-19 Eval Order SARS-CoV-2, RNA, NAAT NEGATIVE (NEGATIVE) 03/09/20 Range/Units 14:49 WBC (4.8-10.8) K/uL RBC (4.7-6.1) M/uL Hgb (14.0-18.0) g/dL Hct (42-52) % MCV (80-100) fL MCH (25-34) pg MCHC (32-36) g/dL RDW Std Deviation (36.4-46.3) fL RDW Coeff of Lilia (11.5-14.5) % Plt Count (130-400) K/uL MPV (7.4-10.4) fL Immature Gran % (Auto) % Neut % (Auto) % Lymph % (Auto) % Kenton % (Auto) % Eos % (Auto) % Baso % (Auto) % Neut # (Auto) (1.4-6.5) K/uL Lymph # (Auto) (1.2-3.4) K/uL Kenton # (Auto) (0.11-0.59) K/uL Eos # (Auto) (0-0.5) K/uL Baso # (Auto) (0-0.2) K/uL Immature Gran # (Auto) (0.00-0.02) K/uL Tear Drop Cells PT (9.0-12.0) Seconds INR (0.9-1.1) APTT (21.0-31.0) Seconds PTT Ratio Sodium (136-145) mmol/L Potassium (3.5-5.1) mmol/L Chloride (98-107) mmol/L Carbon Dioxide (21-32) mmol/L Anion Gap (3-11) BUN (7-18) mg/dl Creatinine (0.6-1.4) mg/dl Est Cr Clr Drug Dosing ml/min Est GFR ( Amer) Est GFR (Non-Af Amer) BUN/Creatinine Ratio (10-20) Glucose (70-99) mg/dl POC Glucose (70-99) mg/dl Estimat Average Glucose mg/dl Hemoglobin A1c (4.5-5.6) % Lactate (0.4-2.0) mmol/L Calcium (8.5-10.1) mg/dl Total Bilirubin (0.2-1) mg/dl AST (15-37) U/L ALT (12-78) U/L Alkaline Phosphatase (45-117) U/L Troponin I (0-0.045) ng/ml Total Protein (6.4-8.2) gm/dl Albumin (3.4-5.0) gm/dl Globulin (2.5-4.0) gm/dl Albumin/Globulin Ratio (0.9-2) Lipase (73-393) U/L COVID-19 Eval Order Covid19 IDNow at[facility] SARS-CoV-2, RNA, NAAT (NEGATIVE)
[2020-03-10] MEDS: HEPARIN SODIUM/DEXTROSE 25,000 UNITS/500 ML BAG IV SCH (13:32)
[2020-03-10 14:32] LABS: Partial Thromboplastin Ratio 2.1
[2020-03-10 14:33] LABS: Partial Thromboplastin Time 59.6 Seconds (21.0-31.0)
[2020-03-10] MEDS: oxyCODONE HCL IR 5 MG TAB (IMMEDIATE RELEASE) PO PRN (17:25)
[2020-03-10] MEDS ORDERED: HYDROmorphone INJ 1 MG/ML SYRINGE IV STA (18:09)
--- NOTE | 2020-03-10 19:18 | CT Scan Report ---
CT SCAN OF THE ABDOMEN AND PELVIS WITHOUT CONTRAST CLINICAL HISTORY: Back pain. Patient on heparin trip. Evaluate for acute hemorrhage. COMPARISON STUDY: 03/09/2020 TECHNIQUE: CT scan of the abdomen and pelvis was performed from the lung bases to the proximal femurs . Images are reviewed in the axial, sagittal, and coronal planes. IV contrast was not administered fo r this examination. A dose lowering technique was utilized adhering to the principles of ALARA. CT DOSE: 885.31 mGy.cm FINDINGS: Lower chest: There is a small left pleural effusion. There are lower lung zone atelectatic changes Liver: There are low density hepatic capsular implants similar to the prior study. Gallbladder: Cholelithiasis Spleen: Mildly elongated Pancreas: The pancreatic head mass described on the recent study is difficult to discern on this nonc ontrast study. There is pancreatic ductal dilatation. Adrenal glands: Unremarkable. Kidneys: No renal, ureteral, or bladder calculi are visualized Bowel: There are no transition zones indicate bowel obstruction. There is moderate colonic fecal load . There is no evidence of acute diverticulitis. There are no findings to indicate acute appendicitis. Peritoneum: There is a moderate to large volume of ascites. There are possible low-density peritoneal tumor implants in the pelvis. Vasculature: The abdominal aorta is normal in course and caliber. Adenopathy: None. Pelvic viscera: The bladder, and pelvic viscera are unremarkable. Skeletal structures: No destructive osseous lesions are seen. There are no findings to indicate acute hemorrhage IMPRESSION: 1. Study limited by the lack of intravenous contrast 2. No evidence of bowel obstruction. No evidence of free air 3. No evidence of acute appendicitis. No evidence of acute diverticulitis 4. No renal, ureteral, or bladder calculi identified 5. Cholelithiasis 6. Moderate to large volume of ascites and peritoneal tumor implants 7. No evidence of acute hemorrhage 8. Left pleural effusion ACT 112: Negative or not required by law. Electronically signed by: Clark Townsend M.D. 03/10/2020 7:17 PM
[2020-03-10] MEDS ORDERED: PHARMACY GLYCEMIC MGMT CONSULT PRN (19:33)
[2020-03-10] MEDS ORDERED: fentaNYL 12 MCG/HR TDSY TD ONE (20:00)
[2020-03-11] MEDS: CHECK fentaNYL PATCH PLACEMENT SCH ×3 (00:18→15:10)
[2020-03-11] MEDS: glipiZIDE 5 MG TAB PO SCH (08:04)
[2020-03-11] MEDS: DOCUSATE SODIUM 100 MG CAP PO SCH ×2 (08:05→20:48)
[2020-03-11] MEDS: ATORVASTATIN 20 MG TAB PO SCH (08:05)
[2020-03-11] MEDS: HYDROmorphone INJ 1 MG/ML SYRINGE IV PRN ×3 (08:18→17:29)
[2020-03-11] MEDS: CALCIUM CARBONATE 500 MG CHEWABLE TAB PO PRN ×2 (08:25→19:32)
[2020-03-11 10:55] LABS: Hematocrit (blood only) 31.3 % (42-52); Hemoglobin 10.2 g/dL (14.0-18.0); Immature Granulocytes # (auto) 0.03 K/uL (0.00-0.02); Immature Granulocytes % (auto) 0.5 %; Lymphocytes % (auto) 9.2 %; Mean Corpuscular Hemoglobin 30.4 pg (25-34); Mean Corpuscular Hgb Conc 32.6 g/dL (32-36); Mean Corpuscular Volume 93.4 fL (80-100); Mean Platelet Volume 9.3 fL (7.4-10.4); Monocytes % (auto) 6.2 %; Neutrophils # (auto) 5.46 K/uL (1.4-6.5); Neutrophils % (auto) 84.1 %; Platelet Count 260 K/uL (130-400); RDW Coefficient of Variation 16.6 % (11.5-14.5); RDW Standard Deviation 57.1 fL (36.4-46.3); Red Blood Count 3.35 M/uL (4.7-6.1); White Blood Count 6.49 K/uL (4.8-10.8)
[2020-03-11 11:32] LABS: Albumin Level 2.7 gm/dl (3.4-5.0); BUN Creatinine Ratio 34.9 (10-20); Bilirubin Direct 0.1 mg/dl (0-0.2); Calcium 8.5 mg/dl (8.5-10.1); Creatinine Clr Calc Pharmacy 125.8 ml/min; Est GFR (African American) 117.3; Est GFR (Non-African American) 101.2; Potassium 3.7 mmol/L (3.5-5.1)
[2020-03-11 11:35] LABS: Bilirubin,Total 0.5 mg/dl (0.2-1); Total Protein 5.9 gm/dl (6.4-8.2)
--- NOTE | 2020-03-11 15:21 | Ultrasound Report ---
US paracentesis abd w/image CLINICAL HISTORY: 54 years-old Male with large ascites, peritoneal carcinomatosis. Peritoneal carcin omatosis with ascites COMPARISON: CT abdomen and pelvis 03/10/2020 PROCEDURE: The procedure was explained to the patient in the care including the benefits and possible risks/complications. The patient gave verbal understanding and written consent was obtained. A time -out was performed prior to the start of the procedure. The patient was placed on the ultrasound table in the supine position. Using ultrasound guidance, an appropriate procedure site in the left lower abdomen was marked. This area was then prepped and drape d in the usual sterile fashion. Local anesthesia was achieved within 1% lidocaine. An 8-[employer] is catheter was then inserted. Approximately 4 liters of ascitic fluid was removed and 1 L was sent t o the lab for analysis. The catheter was removed and external pressure was held to achieve hemostasis. A sterile dressing was applied to the procedure site. The patient tolerated the procedure well without immediate complicati ons. IMPRESSION: Successful ultrasound-guided paracentesis with removal of 4 L ascitic fluid ACT 112: Negative or not required by law. The above report was generated using voice recognition software. It may contain grammatical, syntax o r spelling errors. Electronically signed by: Amando Cooley M.D. 03/11/2020 3:19 PM
[2020-03-11] MEDS ORDERED: Heparin IV Standard *NO* Bolus IV SCH (15:45)
[2020-03-11 15:53] LABS: Albumin Peritoneal Fluid 2.3 g/dl
[2020-03-11] MEDS: HEPARIN SODIUM/DEXTROSE 25,000 UNITS/500 ML BAG IV SCH (16:25)
[2020-03-11 16:44] LABS: Appearance Peritoneal Fluid HAZY; Color Peritoneal Fluid YELLOW; RBC Peritoneal Fluid (A) < 3000 /uL; WBC Peritoneal Fluid (A) 620 /ul (0-300)
--- NOTE | 2020-03-11 18:18 | Hospitalist Progress Note ---
Date of Service March 11, 2020 Assessment & Plan (1) Pulmonary embolism: Bilateral lower lobe pulmonary emboli seen on CT chest Hypercoagulable state with pancreatic cancer Continue IV heparin Discussed with oncologist at [facility], Dr. Ha Recommend to consult local oncologist for further recommendations (2) Abdominal pain: 54-year-old male with history of pancreatic cancer with liver metastasis, on chemotherapy Diabetes type II, hypertension, presenting with chest and abdominal pain Chest pain Due to acute bilateral pulmonary embolism, lower lobes --In the setting of metastatic pancreatic cancer --Hemodynamically stable, saturating well on room air --Currently on heparin drip, tolerating well --Consult oncology service Abdominal pain Multifactorial: Large volume ascites, with peritoneal carcinomatosis --Discussed with GI service --Agree with ultrasound-guided paracentesis --Status post ultrasound-guided paracentesis today, draining 4 L Per radiologist, there is at least 3 L of residual ascites --Follow-up ascites fluid studies --Dilaudid as needed Fentanyl patch --Oncologist consulted 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 Pancreatic cancer with liver metastasis, with pancreatic duct dilatation --Discussed with GI, no plans for ERCP at this point Diabetes type 2 --A1c 9.4 last August --Usually on Jardiance, glipizide --Continue insulin sliding scale --Consulted pharmacy glycemic control Hypertension --Pressure on the lower side Hold valsartan, hydrochlorothiazide DVT prophylaxis Continue heparin drip Disposition Lives at home with Plan of care discussed with patient in detail and at length All questions were answered He is understanding and agreeable, comfortable plan of care Admission and Anticipated Discharge Date Admission Date: March 09, 2020 Subjective ff up for malignant ascites, acute pulmonary embolism, etc. Seen in the morning, states pain is adequately controlled by analgesics Has some mild nausea Denies chest pain or shortness of breath, palpitations, dizziness, fevers or chills No bleeding Evaluated after paracentesis, patient appears more comfortable States pain is improved since paracentesis No other symptoms Review of Systems Review of Systems: All systems reviewed & are unremarkable except as noted in Subjective Physical Exam Physical Exam: General- oriented x 3, not in distress, speaks in sentences with no effort or accessory muscle use Eyes- anicteric Neck- no JVD Lungs- clear breath sounds bilaterally, no rales/wheezes Heart- normal rate, regular rhythm; no murmurs Abdomen- normal bowel sounds,distended, soft, nontender Extremities- no pretibial edema, no calf tenderness Neuro- alert, oriented x 3; no gross focal neurologic deficits Skin- warm & dry Results & Data Results & Data ([facility]) Vital Signs (Past 12 Hours) Vital Signs Temp Pulse Pulse Resp BP Pulse Ox 03/11/20 15:09 36.6 C 74 18 110/71 97 03/11/20 11:46 36.5 C 81 18 103/65 98 03/11/20 08:00 36.8 C 74 82 18 110/72 96 Laboratory Results Laboratory Results - last 24 hr 03/10/20 03/11/20 03/11/20 21:03 07:17 10:34 WBC 6.49 RBC 3.35 L Hgb 10.2 L Hct 31.3 L MCV 93.4 MCH 30.4 MCHC 32.6 RDW Std Deviation 57.1 H RDW Coeff of Lilia 16.6 H Plt Count 260 MPV 9.3 Immature Gran % (Auto) 0.5 Neut % (Auto) 84.1 Lymph % (Auto) 9.2 [place] % (Auto) 6.2 Eos % (Auto) 0.0 Baso % (Auto) 0.0 Neut # (Auto) 5.46 Lymph # (Auto) 0.60 L [place] # (Auto) 0.40 Eos # (Auto) 0.00 Baso # (Auto) 0.00 Immature Gran # (Auto) 0.03 H Sodium Potassium Chloride Carbon Dioxide Anion Gap BUN Creatinine Est Cr Clr Drug Dosing Est GFR ( Amer) Est GFR (Non-Af Amer) BUN/Creatinine Ratio Glucose POC Glucose 223 H 185 H Calcium Total Bilirubin Direct Bilirubin AST ALT Alkaline Phosphatase Total Protein Albumin Fluid Neutrophils % Fluid Lymphocytes % Fluid Eosinophils % Fluid Meso/Macro/[place] % Fluid Slide Review Peritoneal Color Peritoneal Appearance Peritoneal WBC Peritoneal RBC Peritoneal Tot Protein Peritoneal Albumin Peritoneal LDH Peritoneal Glucose Peritoneal Amylase Peritoneal Lipase Peritoneal Triglycerid 03/11/20 03/11/20 03/11/20 10:34 11:27 16:36 WBC RBC Hgb Hct MCV MCH MCHC RDW Std Deviation RDW Coeff of Lilia Plt Count MPV Immature Gran % (Auto) Neut % (Auto) Lymph % (Auto) [place] % (Auto) Eos % (Auto) Baso % (Auto) Neut # (Auto) Lymph # (Auto) [place] # (Auto) Eos # (Auto) Baso # (Auto) Immature Gran # (Auto) Sodium 132 L Potassium 3.7 Chloride 95 L Carbon Dioxide 29 Anion Gap 8.0 BUN 29 H Creatinine 0.83 Est Cr Clr Drug Dosing 125.8 Est GFR ( Amer) 117.3 Est GFR (Non-Af Amer) 101.2 BUN/Creatinine Ratio 34.9 H Glucose 215 H POC Glucose 226 H 145 H Calcium 8.5 Total Bilirubin 0.5 Direct Bilirubin 0.1 AST 98 H ALT 96 H Alkaline Phosphatase 165 H Total Protein 5.9 L Albumin 2.7 L Fluid Neutrophils % Fluid Lymphocytes % Fluid Eosinophils % Fluid Meso/Macro/[place] % Fluid Slide Review Peritoneal Color Peritoneal Appearance Peritoneal WBC Peritoneal RBC Peritoneal Tot Protein Peritoneal Albumin Peritoneal LDH Peritoneal Glucose Peritoneal Amylase Peritoneal Lipase Peritoneal Triglycerid 03/11/20 03/11/20 03/11/20 Unknown Unknown Unknown WBC RBC Hgb Hct MCV MCH MCHC RDW Std Deviation RDW Coeff of Lilia Plt Count MPV Immature Gran % (Auto) Neut % (Auto) Lymph % (Auto) [place] % (Auto) Eos % (Auto) Baso % (Auto) Neut # (Auto) Lymph # (Auto) [place] # (Auto) Eos # (Auto) Baso # (Auto) Immature Gran # (Auto) Sodium Potassium Chloride Carbon Dioxide Anion Gap BUN Creatinine Est Cr Clr Drug Dosing Est GFR ( Amer) Est GFR (Non-Af Amer) BUN/Creatinine Ratio Glucose POC Glucose Calcium Total Bilirubin Direct Bilirubin AST ALT Alkaline Phosphatase Total Protein Albumin Fluid Neutrophils % Pending Fluid Lymphocytes % Pending Fluid Eosinophils % Pending Fluid Meso/Macro/[place] % Pending Fluid Slide Review Pending Peritoneal Color YELLOW Peritoneal Appearance HAZY Peritoneal WBC 620 H Peritoneal RBC < 3000 Peritoneal Tot Protein 4.0 Peritoneal Albumin Cancelled 2.3 Peritoneal LDH 382 Peritoneal Glucose 162 Peritoneal Amylase 8 Peritoneal Lipase 18 Peritoneal Triglycerid 63 03/11/20 03/11/20 03/11/20 Unknown Unknown Unknown WBC RBC Hgb Hct MCV MCH MCHC RDW Std Deviation RDW Coeff of Lilia Plt Count MPV Immature Gran % (Auto) Neut % (Auto) Lymph % (Auto) [place] % (Auto) Eos % (Auto) Baso % (Auto) Neut # (Auto) Lymph # (Auto) [place] # (Auto) Eos # (Auto) Baso # (Auto) Immature Gran # (Auto) Sodium Potassium Chloride Carbon Dioxide Anion Gap BUN Creatinine Est Cr Clr Drug Dosing Est GFR ( Amer) Est GFR (Non-Af Amer) BUN/Creatinine Ratio Glucose POC Glucose Calcium Total Bilirubin Direct Bilirubin AST ALT Alkaline Phosphatase Total Protein Albumin Fluid Neutrophils % Fluid Lymphocytes % Fluid Eosinophils % Fluid Meso/Macro/[place] % Fluid Slide Review Peritoneal Color Peritoneal Appearance Peritoneal WBC Peritoneal RBC Peritoneal Tot Protein Peritoneal Albumin Peritoneal LDH Cancelled Peritoneal Glucose Cancelled Peritoneal Amylase Peritoneal Lipase Cancelled Peritoneal Triglycerid 03/11/20 03/11/20 Unknown Unknown WBC RBC Hgb Hct MCV MCH MCHC RDW Std Deviation RDW Coeff of Lilia Plt Count MPV Immature Gran % (Auto) Neut % (Auto) Lymph % (Auto) [place] % (Auto) Eos % (Auto) Baso % (Auto) Neut # (Auto) Lymph # (Auto) [place] # (Auto) Eos # (Auto) Baso # (Auto) Immature Gran # (Auto) Sodium Potassium Chloride Carbon Dioxide Anion Gap BUN Creatinine Est Cr Clr Drug Dosing Est GFR ( Amer) Est GFR (Non-Af Amer) BUN/Creatinine Ratio Glucose POC Glucose Calcium Total Bilirubin Direct Bilirubin AST ALT Alkaline Phosphatase Total Protein Albumin Fluid Neutrophils % Fluid Lymphocytes % Fluid Eosinophils % Fluid Meso/Macro/[place] % Fluid Slide Review Peritoneal Color Peritoneal Appearance Peritoneal WBC Peritoneal RBC Peritoneal Tot Protein Cancelled Peritoneal Albumin Peritoneal LDH Peritoneal Glucose Peritoneal Amylase Peritoneal Lipase Peritoneal Triglycerid Cancelled (1) Pulmonary embolism Acute cor pulmonale presence: unspecified Chronicity: acute Pulmonary embolism type: unspecified Qualified Code(s): I26.99 - Other pulmonary embolism without acute cor pulmonale (2) Abdominal pain Abdominal location: generalized Qualified Code(s): R10.84 - Generalized abdominal pain
[2020-03-11 23:15] LABS: Partial Thromboplastin Ratio 1.9
[2020-03-11 23:17] LABS: Partial Thromboplastin Time 52.1 Seconds (21.0-31.0)
[2020-03-12] MEDS: CHECK fentaNYL PATCH PLACEMENT SCH ×4 (00:18→23:41)
[2020-03-12] MEDS: CALCIUM CARBONATE 500 MG CHEWABLE TAB PO PRN ×3 (03:30→13:36)
[2020-03-12 07:16] LABS: Basophils, Fluid 0 %; Eosinophils, Fluid 0 %; Lymphocytes, Fluid 17 %; Mono,Macrophage,Mesothelial 78 %; Neutrophils, Fluid 5 %
[2020-03-12 07:23] LABS: Eosinophils # (auto) 0.01 K/uL (0-0.5); Eosinophils % (auto) 0.2 %; Hematocrit (blood only) 30.5 % (42-52); Immature Granulocytes # (auto) 0.01 K/uL (0.00-0.02); Immature Granulocytes % (auto) 0.2 %; Lymphocytes # (auto) 0.88 K/uL (1.2-3.4); Lymphocytes % (auto) 20.8 %; Mean Corpuscular Hemoglobin 30.8 pg (25-34); Mean Corpuscular Hgb Conc 32.8 g/dL (32-36); Mean Corpuscular Volume 93.8 fL (80-100); Mean Platelet Volume 9.4 fL (7.4-10.4); Monocytes # (auto) 0.14 K/uL (0.11-0.59); Monocytes % (auto) 3.3 %; Neutrophils # (auto) 3.19 K/uL (1.4-6.5); Neutrophils % (auto) 75.5 %; Platelet Count 186 K/uL (130-400); RDW Coefficient of Variation 16.4 % (11.5-14.5); RDW Standard Deviation 56.4 fL (36.4-46.3); Red Blood Count 3.25 M/uL (4.7-6.1); White Blood Count 4.23 K/uL (4.8-10.8)
[2020-03-12 07:41] LABS: Partial Thromboplastin Ratio 2.5
[2020-03-12 07:52] LABS: Partial Thromboplastin Time 69.2 Seconds (21.0-31.0)
[2020-03-12 07:57] LABS: Albumin Level 2.4 gm/dl (3.4-5.0); Calcium 8.8 mg/dl (8.5-10.1); Creatinine Clr Calc Pharmacy 186.7 ml/min; Est GFR (African American) 138.9; Est GFR (Non-African American) 119.8
[2020-03-12] MEDS: HEPARIN SODIUM/DEXTROSE 25,000 UNITS/500 ML BAG IV SCH (08:02)
[2020-03-12 08:03] LABS: Albumin Globulin Ratio 0.9 (0.9-2); Bilirubin,Total 0.5 mg/dl (0.2-1); Globulin 2.7 gm/dl (2.5-4.0); Total Protein 5.1 gm/dl (6.4-8.2)
[2020-03-12] MEDS: ATORVASTATIN 20 MG TAB PO SCH (08:08)
[2020-03-12] MEDS: glipiZIDE 5 MG TAB PO SCH (08:08)
[2020-03-12] MEDS: DOCUSATE SODIUM 100 MG CAP PO SCH ×2 (08:08→20:00)
[2020-03-12] MEDS: HYDROmorphone INJ 1 MG/ML SYRINGE IV PRN ×2 (08:13→13:37)
[2020-03-12 14:39] LABS: Partial Thromboplastin Time 55.4 Seconds (21.0-31.0)
[2020-03-12] MEDS: PANTOprazole 40 MG TAB PO SCH (14:51)
--- NOTE | 2020-03-12 16:32 | Consultation ---
Date of Consultation March 12, 2020 Assessment & Plan (1) Pancreatic carcinoma metastatic to liver: 54 y/o unfortunate male with hx of metastatic pancreatic cancer on chemotherapy. Patient has widespread hepatic and peritoneal carcinomatosis. He has received 4 lines of chemotherapy including FOLFIRINOX, [place]/abraxane, mFOLFOX, and FOLFIRI regimen. Last chemo was administered on 03/09/20. - primary oncologist is Dr. Llamas from [facility] in [place] - tumor is MSI-L or WILLOW, so not eligible for Keytruda - Guardant 360 testing in June/2019 showed no tumor targetable mutations - recent CT scan showed worsening malignant ascites and progressive peritoneal carcinomatosis indicating disease progression - patient still wants to continue treatment but we are running short of therapeutic options - palliative/hospice care can be appropriate if patient is agreeable - will discuss with Dr. 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 Feel free to contact if any questions. Present on Admission?: Yes History of Present Illness Reason for Consultation: Metastatic pancreatic cancer Bilateral PE, mesenteric vein thrombosis Attending Physician: Norbert Roy MD History of Present Illness 54 y/o male with hx of metastatic pancreatic cancer on chemotherapy, HTN, DM II who [facility] infusion with chest and abdominal distension and pain that has been worsening over the past week. His oncologic history is displayed below and his primary oncologist is Dr. Shrestha from [facility] in [place]. He underwent CT chest, abd, pelvis after complaining of abdominal pain. 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 Patient was started anticoagulation via unfractionated heparin. He also underwent paracentesis obtaining 4000 cc of ascitic fluid. Patient feels weak but somewhat better after paracentesis. No acute complaints. Denies fever, chills, lightheadedness, headache, chest pain, palpitations, shortness of breath, vomiting, dysuria or melena. Patient was seen and examined at bedside. Lab data and imaging studies were reviewed. (Exerpt from last oncology visit note on 01/28/20) Diagnosis: Pancreatic adenocarcinoma, WILLOW, diagnosed 06/20/18 Stage: Stage IV with hepatic and peritoneal metastases Current Treatment: FOLFIRI; started on 01/14/2020 Prior Treatments: 1. Came to attention in May, with epigastric pain and new-onset type [address] A/P 06/17/18 revealed an irregular mass within the mid pancreatic body measuring 4.5 x 5.0 cm. Abdominal MRI 06/18 confirmed the mass, which encased and possibly occluded the splenic vein, along with encasement of the portosplenic confluence and multiple anterior mesenteric/omental nodules, suspicious for carcinomatosis. 2. On 06/20/18, he underwent EUS with FNA of the pancreatic body mass and FNA of a liver mass. The liver mass revealed adenocarcinoma. The pancreatic FNA was hypocellular but revealed rare atypical cells highly suspicious for mucinous adenocarcinoma with extensive necrosis. The tumor was WILLOW. 3. He received one or two cycles of FOLFIRINOX in July 2018. However, he had severe diarrhea that required octreotide and a hospital stay. As a result, this treatment was abandoned. 4. He started Gemcitabine and Abraxane on 09/04/18. He received 10 cycles through 04/25/19. CT 03/28/19 revealed recurrent peritoneal carcinomatosis and increased ascites. The final cycle was given while we screened him for a DPD mutation, which was negative. 5. Started FOLFOX x 12 cycles on 05/16/2019. 6. Guardant 360 testing in June/2019 showed no tumor related alterations detected in the patient's sample. 7. He completed 12 cycles of mFOLFOX on 10/22/19; further chemotherapy was held for 1 month. 8. Evaluated at [facility] in the beginning of ; follow up CT AP showed progression of peritoneal metastatic disease. He resumed mFOLFOX on 12/02/[address] Llamas, cycle #13. 9. CA 19-9 level on 01/13/2020 was > 10,000. So therapy was switched to FOLFIRI on 01/14/2020 Allergies Allergy/AdvReac Type Severity Reaction Status Date / Time Penicillins Allergy Severe Swelling Verified 03/09/20 16:16 of Lip/Tongue/Throat Sulfa (Sulfonamide Allergy Severe Swelling Verified 03/09/20 16:16 Antibiotics) of Lip/Tongue/Throat Torcan AdvReac Intermediate Muscle Pain Uncoded 03/09/20 16:16 Home Medications Medication Instructions Recorded Confirmed Type Jardiance 10 mg PO QAM 06/17/18 03/09/20 History metoclopramide HCl 10 mg PO Q6H PRN 08/06/18 03/09/20 History atorvastatin 20 mg PO QAM 09/01/18 03/09/20 History valsartan-hydrochlorothiazide 1 tab PO QAM 09/01/18 03/09/20 History docusate sodium [Col-Rite] 100 mg PO BID #60 cap 09/03/18 03/09/20 Rx fentanyl 50 mcg TOPICAL [id number] 03/09/20 03/09/20 History glipizide 5 mg PO DAILY 03/09/20 03/09/20 History ondansetron 4 mg PO Q8H PRN 03/09/20 03/09/20 History oxycodone 10 mg PO .Q4-6HRS PRN 03/09/20 03/09/20 History Patient History Medical History (Updated 03/09/20 @ 21:01 by Gabriella Campos PA-C) DM type 2 (diabetes mellitus, type 2) Dyslipidemia Hypertension Pancreatic adenocarcinoma Pancreatic carcinoma metastatic to liver Surgical History (Updated 03/09/20 @ 20:52 by Gabriella Campos PA-C) H/O Spinal surgery Family History Other No significant family history Social History Smoking Status: Former smoker Tobacco Type: Smokeless Tobacco (Dip or Chew) Smoking End Date: 2013; Second Hand Exposure: No; Hx Alcohol Use: No Hx Substance Use: No Preferred Language: Upper Sorbian Communication Ability: Effective M48 M60 Armor Crewman Required: No Beliefs That Will Affect Care: None marital status: Current Living Situation: Spouse Other Information That Helps Us Care for You: No Feels Safe at Home: Yes Safety Concerns: Feels Safe At This Time Assistive Devices: Glasses Review of Systems Review of Systems: Constitutional: Negative for weight loss, night sweats, or fever. FATIGUE, ANOREXIA Eyes: Negative for event change of vision ENT: Negative for epistaxis, nasal discharge, sore throat, or deafness Cardiovascular: Negative for anginal type chest pain, palpitations, dizziness, diaphoresis Respiratory: Negative for new shortness of breath, hemoptysis, or purulent cough Gastrointestinal: CONSTIPATION, ABDOMINAL DISTENSION, PAIN, NAUSEA, HEMORRHOIDS Integumentary (skin): Negative for rash or jaundice discoloration Genitourinary: Negative for urinary frequency, hematuria, or dysuria Neurological: Negative for weakness, seizure activity, headache, or dizziness. PERIPHERAL NEUROPATHY Lymphatic/Hematologic: Negative for petechiae, bleeding or new adenopathy Musculoskeletal: Negative for new joint or back pain Allergic/Immunologic: Negative for unusual rash or pruritus Physical Exam Physical Exam: Constitutional: Vitals are stable, CHRONICALLY ILL LOOKING Eyes: Eyes are ROSIO EOMI without conjunctival erythema or icterus. ENT: External examination was negative for masses. Neck: Negative for masses or palpable thyromegaly. Respiratory: DIMINISHED BREATH SOUNDS BOTH BASES Cardiovascular: Heart was RRR without significant murmur, gallops or rubs. Gastrointestinal: ABDOMINAL DISTENSION, ASCITES+. Lymphatic system: There was no palpable peripheral lymphadenopathy. Musculoskeletal System: The musculoskeletal system seemed concordant with age. Skin: The skin was negative for jaundice. PORT A CATH SITE LOOKS BENIGN Neurologic Exam: The exam was negative for any focal findings. Extremities: TRACE LEG EDEMA Results & Data ([facility]) Vital Signs (Past 12 Hours) Vital Signs Temp Pulse Pulse Resp BP BP BP 03/12/20 15:17 37.1 C 82 16 110/74 03/12/20 11:48 36.8 C 84 18 121/80 03/12/20 08:19 36.6 C 96 H 81 18 110/72 115/66 121/63 Pulse Ox 03/12/20 15:17 97 03/12/20 11:48 97 03/12/20 08:19 95 Laboratory Results Laboratory Results - last 24 hr 03/10/20 03/11/20 03/11/20 21:03 07:17 10:34 WBC 6.49 RBC 3.35 L Hgb 10.2 L Hct 31.3 L MCV 93.4 MCH 30.4 MCHC 32.6 RDW Std Deviation 57.1 H RDW Coeff of Lilia 16.6 H Plt Count 260 MPV 9.3 Immature Gran % (Auto) 0.5 Neut % (Auto) 84.1 Lymph % (Auto) 9.2 [place] % (Auto) 6.2 Eos % (Auto) 0.0 Baso % (Auto) 0.0 Neut # (Auto) 5.46 Lymph # (Auto) 0.60 L [place] # (Auto) 0.40 Eos # (Auto) 0.00 Baso # (Auto) 0.00 Immature Gran # (Auto) 0.03 H Sodium Potassium Chloride Carbon Dioxide Anion Gap BUN Creatinine Est Cr Clr Drug Dosing Est GFR ( Amer) Est GFR (Non-Af Amer) BUN/Creatinine Ratio Glucose POC Glucose 223 H 185 H Calcium Total Bilirubin Direct Bilirubin AST ALT Alkaline Phosphatase Total Protein Albumin Fluid Neutrophils % Fluid Lymphocytes % Fluid Eosinophils % Fluid Meso/Macro/[place] % Fluid Slide Review Peritoneal Color Peritoneal Appearance Peritoneal WBC Peritoneal RBC Peritoneal Tot Protein Peritoneal Albumin Peritoneal LDH Peritoneal Glucose Peritoneal Amylase Peritoneal Lipase Peritoneal Triglycerid 03/11/20 03/11/20 03/11/20 10:34 11:27 16:36 WBC RBC Hgb Hct MCV MCH MCHC RDW Std Deviation RDW Coeff of Lilia Plt Count MPV Immature Gran % (Auto) Neut % (Auto) Lymph % (Auto) [place] % (Auto) Eos % (Auto) Baso % (Auto) Neut # (Auto) Lymph # (Auto) [place] # (Auto) Eos # (Auto) Baso # (Auto) Immature Gran # (Auto) Sodium 132 L Potassium 3.7 Chloride 95 L Carbon Dioxide 29 Anion Gap 8.0 BUN 29 H Creatinine 0.83 Est Cr Clr Drug Dosing 125.8 Est GFR ( Amer) 117.3 Est GFR (Non-Af Amer) 101.2 BUN/Creatinine Ratio 34.9 H Glucose 215 H POC Glucose 226 H 145 H Calcium 8.5 Total Bilirubin 0.5 Direct Bilirubin 0.1 AST 98 H ALT 96 H Alkaline Phosphatase 165 H Total Protein 5.9 L Albumin 2.7 L Fluid Neutrophils % Fluid Lymphocytes % Fluid Eosinophils % Fluid Meso/Macro/[place] % Fluid Slide Review Peritoneal Color Peritoneal Appearance Peritoneal WBC Peritoneal RBC Peritoneal Tot Protein Peritoneal Albumin Peritoneal LDH Peritoneal Glucose Peritoneal Amylase Peritoneal Lipase Peritoneal Triglycerid 03/11/20 03/11/20 03/11/20 Unknown Unknown Unknown WBC RBC Hgb Hct MCV MCH MCHC RDW Std Deviation RDW Coeff of Lilia Plt Count MPV Immature Gran % (Auto) Neut % (Auto) Lymph % (Auto) [place] % (Auto) Eos % (Auto) Baso % (Auto) Neut # (Auto) Lymph # (Auto) [place] # (Auto) Eos # (Auto) Baso # (Auto) Immature Gran # (Auto) Sodium Potassium Chloride Carbon Dioxide Anion Gap BUN Creatinine Est Cr Clr Drug Dosing Est GFR ( Amer) Est GFR (Non-Af Amer) BUN/Creatinine Ratio Glucose POC Glucose Calcium Total Bilirubin Direct Bilirubin AST ALT Alkaline Phosphatase Total Protein Albumin Fluid Neutrophils % Pending Fluid Lymphocytes % Pending Fluid Eosinophils % Pending Fluid Meso/Macro/[place] % Pending Fluid Slide Review Pending Peritoneal Color YELLOW Peritoneal Appearance HAZY Peritoneal WBC 620 H Peritoneal RBC < 3000 Peritoneal Tot Protein 4.0 Peritoneal Albumin Cancelled 2.3 Peritoneal LDH 382 Peritoneal Glucose 162 Peritoneal Amylase 8 Peritoneal Lipase 18 Peritoneal Triglycerid 63 03/11/20 03/11/20 03/11/20 Unknown Unknown Unknown WBC RBC Hgb Hct MCV MCH MCHC RDW Std Deviation RDW Coeff of Lilia Plt Count MPV Immature Gran % (Auto) Neut % (Auto) Lymph % (Auto) [place] % (Auto) Eos % (Auto) Baso % (Auto) Neut # (Auto) Lymph # (Auto) [place] # (Auto) Eos # (Auto) Baso # (Auto) Immature Gran # (Auto) Sodium Potassium Chloride Carbon Dioxide Anion Gap BUN Creatinine Est Cr Clr Drug Dosing Est GFR ( Amer) Est GFR (Non-Af Amer) BUN/Creatinine Ratio Glucose POC Glucose Calcium Total Bilirubin Direct Bilirubin AST ALT Alkaline Phosphatase Total Protein Albumin Fluid Neutrophils % Fluid Lymphocytes % Fluid Eosinophils % Fluid Meso/Macro/[place] % Fluid Slide Review Peritoneal Color Peritoneal Appearance Peritoneal WBC Peritoneal RBC Peritoneal Tot Protein Peritoneal Albumin Peritoneal LDH Cancelled Peritoneal Glucose Cancelled Peritoneal Amylase Peritoneal Lipase Cancelled Peritoneal Triglycerid 03/11/20 03/11/20 Unknown Unknown WBC RBC Hgb Hct MCV MCH MCHC RDW Std Deviation RDW Coeff of Lilia Plt Count MPV Immature Gran % (Auto) Neut % (Auto) Lymph % (Auto) [place] % (Auto) Eos % (Auto) Baso % (Auto) Neut # (Auto) Lymph # (Auto) [place] # (Auto) Eos # (Auto) Baso # (Auto) Immature Gran # (Auto) Sodium Potassium Chloride Carbon Dioxide Anion Gap BUN Creatinine Est Cr Clr Drug Dosing Est GFR ( Amer) Est GFR (Non-Af Amer) BUN/Creatinine Ratio Glucose POC Glucose Calcium Total Bilirubin Direct Bilirubin AST ALT Alkaline Phosphatase Total Protein Albumin Fluid Neutrophils % Fluid Lymphocytes % Fluid Eosinophils % Fluid Meso/Macro/[place] % Fluid Slide Review Peritoneal Color Peritoneal Appearance Peritoneal WBC Peritoneal RBC Peritoneal Tot Protein Cancelled Peritoneal Albumin Peritoneal LDH Peritoneal Glucose Peritoneal Amylase Peritoneal Lipase Peritoneal Triglycerid Cancelled Diagnostic Findings ABDOMEN AND PELVIS CT WITH IV AND ORAL CONTRAST ON 03/09/20 IMPRESSION: 1. Pancreatic mass redemonstrated with abutment of the adjacent lesser curvature of the stomach and superior mesenteric artery with upstream pancreatic ductal dilation. 2. 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 Chronic occlusion of the splenic vein. 3. Progressive peritoneal carcinomatosis with moderate abdominopelvic ascites. 4. Mild intrahepatic biliary ductal dilation of the left hepatic lobe with heterogeneous enhancement of the liver. 5. Cholelithiasis with mild gallbladder wall thickening. 6. Multifocal colonic wall thickening may reflect areas of partial distention. Serosal metastatic implants not excluded. 7. No bowel obstruction 8. Small left pleural effusion with bilateral pulmonary emboli. CHEST CT WITH CONTRAST ON 03/09/20 IMPRESSION: 1. Bilateral lower lobe pulmonary emboli. 2. Small left pleural effusion. 3. Small faint groundglass densities within the lower lobes posteriorly. These are nonspecific and could be due to mild inflammatory/infectious change or less likely developing pulmonary infarcts. 4. These findings were discussed with the patient's news operations manager, Jenna Moser, at 1:52 PM on 03/09/2020. (1) Pulmonary embolism Acute cor pulmonale presence: unspecified Chronicity: acute Pulmonary embolism type: unspecified Qualified Code(s): I26.99 - Other pulmonary embolism without acute cor pulmonale
--- NOTE | 2020-03-12 16:44 | Hospitalist Progress Note ---
Date of Service March 12, 2020 Assessment & Plan (1) Pulmonary embolism: Bilateral lower lobe pulmonary emboli seen on CT chest Hypercoagulable state with pancreatic cancer Continue IV heparin Discussed with oncologist at [facility], Dr. Ha Recommend to consult local oncologist for further recommendations awaiting inpatient evaluation by Oncologist (2) Abdominal pain: 54-year-old male with history of pancreatic cancer with liver metastasis, on chemotherapy Diabetes type II, hypertension, presenting with chest and abdominal pain Chest pain Due to acute bilateral pulmonary embolism, lower lobes --In the setting of metastatic pancreatic cancer --Hemodynamically stable, saturating well on room air --Currently on heparin drip, tolerating well --Consulted oncology service Abdominal pain Multifactorial: Large volume ascites, with peritoneal carcinomatosis --Discussed with GI service --Agree with ultrasound-guided paracentesis -- 03/11/20 : Status post ultrasound-guided paracentesis, draining 4 L Per radiologist, there is at least 3 L of residual ascites --Follow-up ascites fluid studies --Dilaudid as needed--> will change to PO Fentanyl patch increased from 50 to 62mcg --Oncologist consulted 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 Pancreatic cancer with liver metastasis, with pancreatic duct dilatation --Discussed with GI, no plans for ERCP at this point Diabetes type 2 --A1c 9.4 last August --Usually on Jardiance, glipizide --Continue insulin sliding scale --Consulted pharmacy glycemic control Hypertension -- Blood Pressure on the lower side Hold valsartan, hydrochlorothiazide DVT prophylaxis -- Continue heparin drip Disposition -- Lives at home with Plan of care discussed with patient in detail and at length All questions were answered He is understanding and agreeable, comfortable plan of care Admission and Anticipated Discharge Date Admission Date: March 09, 2020 Subjective ff up for malignant ascites, pancreatic cancer, acute PE, etc seen resting in bed, somewhat weak, but not in distress states he feels better today abdominal pain is improving- moderate has occasional nausea/reflux no chest pain, dyspnea, palpitations, dizziness no bleeding no other symptoms Review of Systems Review of Systems: All systems reviewed & are unremarkable except as noted in Subjective Physical Exam Physical Exam: General- oriented x 3, not in distress, speaks in sentences with no effort or accessory muscle use Eyes- anicteric Neck- no JVD Lungs- clear breath sounds bilaterally Heart- normal rate, regular rhythm; no murmurs Abdomen- normal bowel sounds, nondistended, soft, nontender Extremities- no pretibial edema, no calf tenderness Neuro- alert, oriented x 3; no gross focal neurologic deficits Skin- warm & dry Results & Data Results & Data ([facility]) Vital Signs (Past 12 Hours) Vital Signs Temp Pulse Pulse Resp BP BP BP 03/12/20 15:17 37.1 C 82 16 110/74 03/12/20 11:48 36.8 C 84 18 121/80 03/12/20 08:19 36.6 C 96 H 81 18 110/72 115/66 121/63 Pulse Ox 03/12/20 15:17 97 03/12/20 11:48 97 03/12/20 08:19 95 (1) Pulmonary embolism Acute cor pulmonale presence: unspecified Chronicity: acute Pulmonary embolism type: unspecified Qualified Code(s): I26.99 - Other pulmonary embolism without acute cor pulmonale (2) Abdominal pain Abdominal location: generalized Qualified Code(s): R10.84 - Generalized abdominal pain
[2020-03-12] MEDS: HYDROmorphone HCL 2 MG TAB PO PRN ×2 (17:31→23:41)
[2020-03-12] MEDS: APIXABAN 5 MG TABLET PO SCH (20:00)
[2020-03-12] MEDS: oxyCODONE HCL IR 5 MG TAB (IMMEDIATE RELEASE) PO PRN (20:00)
[2020-03-12] MEDS ORDERED: HEPARIN: STOP ORDER ONE (21:00)
[2020-03-13] MEDS: CALCIUM CARBONATE 500 MG CHEWABLE TAB PO PRN ×2 (03:58→08:23)
[2020-03-13] MEDS: oxyCODONE HCL IR 5 MG TAB (IMMEDIATE RELEASE) PO PRN (05:47)
[2020-03-13] MEDS: CHECK fentaNYL PATCH PLACEMENT SCH (08:17)
[2020-03-13] MEDS: DOCUSATE SODIUM 100 MG CAP PO SCH (08:24)
[2020-03-13] MEDS: HYDROmorphone HCL 2 MG TAB PO PRN (08:24)
[2020-03-13 08:30] LABS: Basophils # (auto) 0.01 K/uL (0-0.2); Basophils % (auto) 0.2 %; Eosinophils # (auto) 0.02 K/uL (0-0.5); Eosinophils % (auto) 0.4 %; Hematocrit (blood only) 35.1 % (42-52); Hemoglobin 11.7 g/dL (14.0-18.0); Immature Granulocytes # (auto) 0.04 K/uL (0.00-0.02); Immature Granulocytes % (auto) 0.8 %; Lymphocytes # (auto) 0.66 K/uL (1.2-3.4); Lymphocytes % (auto) 13.4 %; Mean Corpuscular Hemoglobin 30.6 pg (25-34); Mean Corpuscular Hgb Conc 33.3 g/dL (32-36); Mean Corpuscular Volume 91.9 fL (80-100); Mean Platelet Volume 9.1 fL (7.4-10.4); Monocytes # (auto) 0.23 K/uL (0.11-0.59); Monocytes % (auto) 4.7 %; Neutrophils # (auto) 3.96 K/uL (1.4-6.5); Neutrophils % (auto) 80.5 %; Platelet Count 246 K/uL (130-400); RDW Coefficient of Variation 16.3 % (11.5-14.5); RDW Standard Deviation 54.5 fL (36.4-46.3); Red Blood Count 3.82 M/uL (4.7-6.1); White Blood Count 4.92 K/uL (4.8-10.8)
[2020-03-13] MEDS ORDERED: Nursing to Pharmacy Communication SCH (08:45)
[2020-03-13] MEDS ORDERED: fentaNYL 12 MCG/HR TDSY TD SCH (09:00)
[2020-03-13 09:08] LABS: Albumin Level 2.5 gm/dl (3.4-5.0); BUN Creatinine Ratio 28.1 (10-20); Calcium 8.7 mg/dl (8.5-10.1); Creatinine Clr Calc Pharmacy 146.6 ml/min; Est GFR (African American) 125.8; Est GFR (Non-African American) 108.5; Potassium 3.9 mmol/L (3.5-5.1)
[2020-03-13 09:11] LABS: Albumin Globulin Ratio 0.8 (0.9-2); Bilirubin,Total 0.6 mg/dl (0.2-1); Globulin 3.2 gm/dl (2.5-4.0); Total Protein 5.7 gm/dl (6.4-8.2)
[2020-03-13] MEDS: glipiZIDE 5 MG TAB PO SCH (09:45)
[2020-03-13] MEDS: ATORVASTATIN 20 MG TAB PO SCH (09:46)
[2020-03-13] MEDS: PANTOprazole 40 MG TAB PO SCH (09:46)
[2020-03-13] MEDS: APIXABAN 5 MG TABLET PO SCH (09:47)
--- NOTE | 2020-03-13 10:30 | Hospitalist Progress Note ---
Date of Service March 13, 2020 Assessment & Plan (1) Pulmonary embolism: Bilateral lower lobe pulmonary emboli seen on CT chest Hypercoagulable state with pancreatic cancer hemodynamically stable no hypoxia given IV heparin--> transitioned to Eliquis Discussed with oncologist at [facility], Dr. Ha Recommend to consult local oncologist for further recommendations evaluated by Oncologist Dr. Cui recommend to transition to Eliquis indefinitely ff up with Oncologist next week as scheduled (2) Abdominal pain: 54-year-old male with history of pancreatic cancer with liver metastasis, on chemotherapy Diabetes type II, hypertension, presenting with chest and abdominal pain Chest pain Due to acute bilateral pulmonary embolism, lower lobes --In the setting of metastatic pancreatic cancer --Hemodynamically stable, saturating well on room air --placed on heparin drip, transitioned to Eliquis --Consulted oncology service management per above -- chest pain resolved Abdominal pain Multifactorial: Large volume ascites, with peritoneal carcinomatosis --Discussed with GI service --Agree with ultrasound-guided paracentesis -- 03/11/20 : Status post ultrasound-guided paracentesis, draining 4 L Per radiologist, there is at least 3 L of residual ascites --Follow-up ascites fluid studies- microbiology and pathology --Dilaudid as needed--> changed to PO Fentanyl patch increased from 50 to 62mcg --Oncologist consulted Partial SMV thrombosis -- heparin drip given, transitioned to Eliquis Pancreatic cancer with liver metastasis, with pancreatic duct dilatation --Discussed with GI, no plans for ERCP at this point Diabetes type 2 --A1c 9.4 last August --Usually on Jardiance, glipizide --Continue insulin sliding scale --Consulted pharmacy glycemic control Hypertension -- Blood Pressure on the lower side Hold valsartan, hydrochlorothiazide DVT prophylaxis -- Eliquis Disposition -- Lives at home with Plan of care discussed with patient and in detail and at length All questions were answered He is understanding and agreeable, comfortable plan of care Admission and Anticipated Discharge Date Admission Date: March 09, 2020 Subjective ff up for malignant ascites, etc seen resting in bed, comfortable in good spirits states abdominal pain is better has occasional nausea but tolerated breakfast well no shortness of breath, cough, palpitations, dizziness, bleeding no other symptoms states he is ready and would like to be discharged today Review of Systems Review of Systems: All systems reviewed & are unremarkable except as noted in Subjective Physical Exam Physical Exam: General- oriented x 3, not in distress, speaks in sentences with no effort or accessory muscle use Eyes- anicteric Neck- no JVD Lungs- clear breath sounds bilaterally Heart- normal rate, regular rhythm; no murmurs Abdomen- normal bowel sounds, nondistended, soft, nontender Extremities- no pretibial edema, no calf tenderness Neuro- alert, oriented x 3; no gross focal neurologic deficits Skin- warm & dry Results & Data Results & Data ([facility]) Vital Signs (Past 12 Hours) Vital Signs Temp Pulse Pulse Resp BP BP Pulse Ox 03/13/20 08:46 84 03/13/20 07:00 36.8 C 94 H 16 124/63 96 03/13/20 03:52 36.8 C 94 H 18 123/83 97 03/13/20 00:42 82 03/12/20 23:29 37.0 C 88 18 108/74 96 Laboratory Results Laboratory Results - last 24 hr 03/11/20 03/12/20 03/12/20 Unknown 13:42 16:30 WBC RBC Hgb Hct MCV MCH MCHC RDW Std Deviation RDW Coeff of Lilia Plt Count MPV Immature Gran % (Auto) Neut % (Auto) Lymph % (Auto) [place] % (Auto) Eos % (Auto) Baso % (Auto) Neut # (Auto) Lymph # (Auto) [place] # (Auto) Eos # (Auto) Baso # (Auto) Immature Gran # (Auto) APTT 55.4 H* PTT Ratio 2.0 Sodium Potassium Chloride Carbon Dioxide Anion Gap BUN Creatinine Est Cr Clr Drug Dosing Est GFR ( Amer) Est GFR (Non-Af Amer) BUN/Creatinine Ratio Glucose POC Glucose 129 H Calcium Total Bilirubin AST ALT Alkaline Phosphatase Total Protein Albumin Globulin Albumin/Globulin Ratio Fluid Slide Review 03/12/20 03/13/20 03/13/20 20:55 07:57 07:57 WBC 4.92 RBC 3.82 L Hgb 11.7 L Hct 35.1 L MCV 91.9 MCH 30.6 MCHC 33.3 RDW Std Deviation 54.5 H RDW Coeff of Lilia 16.3 H Plt Count 246 MPV 9.1 Immature Gran % (Auto) 0.8 Neut % (Auto) 80.5 Lymph % (Auto) 13.4 [place] % (Auto) 4.7 Eos % (Auto) 0.4 Baso % (Auto) 0.2 Neut # (Auto) 3.96 Lymph # (Auto) 0.66 L [place] # (Auto) 0.23 Eos # (Auto) 0.02 Baso # (Auto) 0.01 Immature Gran # (Auto) 0.04 H APTT PTT Ratio Sodium 133 L Potassium 3.9 Chloride 96 L Carbon Dioxide 31 Anion Gap 6.0 BUN 20 H Creatinine 0.70 Est Cr Clr Drug Dosing 146.6 Est GFR ( Amer) 125.8 Est GFR (Non-Af Amer) 108.5 BUN/Creatinine Ratio 28.1 H Glucose 151 H POC Glucose 149 H Calcium 8.7 Total Bilirubin 0.6 AST 25 ALT 51 Alkaline Phosphatase 160 H Total Protein 5.7 L Albumin 2.5 L Globulin 3.2 Albumin/Globulin Ratio 0.8 L Fluid Slide Review (1) Pulmonary embolism Acute cor pulmonale presence: unspecified Chronicity: acute Pulmonary embolism type: unspecified Qualified Code(s): I26.99 - Other pulmonary embolism without acute cor pulmonale (2) Abdominal pain Abdominal location: generalized Qualified Code(s): R10.84 - Generalized abdominal pain
--- NOTE | 2020-03-17 22:16 | Discharge Summary ---
Date of Service March 17, 2020 Admission HPI Per Admitting Provider This is a 54yo M with a PMH of metastatic pancreatic cancer on chemotherapy, HTN, DM II and other medical problems listed below who [facility] infusion today with chest and abdominal pain has been worsening over the past week. Was diagnosed with pancreatic cancer in May 2018 and receives oncologic care at [facility] in [place] from Dr. Llamas. Has been receiving chemotherapy infusions every 2 weeks (patient unclear on exact treatment course) and underwent CT chest and CT abd/pelvis today after complaining of abdominal pain. CT chest revealed bilateral lower lobe pulmonary emboli and CT abd/pelvis showed pancreatic mass re-demonstrated with abutment of the adjacent lesser curvature of the stomach and superior mesenteric artery with upstream pancreatic ductal dilation, new partially occlusive thrombus of the superior mesenteric vein, chronic occlusion of the splenic vein, progressive peritoneal carcinomatosis with moderate a bdominopelvic ascites, mild intrahepatic biliary ductal dilation of the left hepatic lobe with heterogeneous enhancement of the liver and multifocal colonic wall thickening may reflect areas of partial distention. Patient has had abdominal pain for the past month intermittently but has had a fullness and pressure that has been present along with distention for the past week. Has been nauseated without vomiting and has early satiety with worsening pain after eating. One episode of bright red blood mixed in with formed bowel movement 5 days ago with a few episodes of diarrhea since then without blood. No melena. Has not been passing flatus today. Denies fever, chills, lightheadedness, headache, chest pain, palpitations, shortness of breath, vomiting, dysuria or melena. Admission Exam Per Admitting Provider General Appearance: vitals as above, NAD, sitting up in bed, pleasant, conversing easily Head: normocephalic, atraumatic Eyes: normal inspection, PERRL, conjunctivae normal, anicteric sclerae ENT: external ear and nose normal, oropharynx normal Neck: normal visual inspection, trachea midline, no thyromegaly Respiratory: normal respiratory effort, lungs clear to auscultation, diminished at bases. No wheeze, rales, rhonchi. No accessory muscle use Cardiovascular: regular rate, rhythm, no murmur appreciated, normal peripheral pulses, no BLE edema. Vessels: no JVD Chest: normal inspection of chest + Port L chest Abdomen/GI: hypoactive bowel sounds, distended and firm, tender in RUQ, no hep atosplenomegaly Extremities/Musculoskeletal: no cyanosis or clubbing, extremities motor strength 5/5 Neurologic: PERRL, EOMI, accommodation nl, no face palsy, no dysarthria, CN's II-XI intact bilaterally and moves all extremities Psychiatric: A+Ox3, euthymic affect Skin: no rashes, normal color, warm/dry Principal Diagnosis MALIGNANT ASCITES PANCREATIC CANCER WITH METASTASES Discharge Exam General- oriented x 3, not in distress, speaks in sentences with no effort or accessory muscle use Eyes- anicteric Neck- no JVD Lungs- clear breath sounds bilaterally Heart- normal rate, regular rhythm; no murmurs Abdomen- normal bowel sounds, nondistended, soft, nontender Extremities- no pretibial edema, no calf tenderness Neuro- alert, oriented x 3; no gross focal neurologic deficits Skin- warm & dry Discharge Data Allergies Allergy/AdvReac Type Severity Reaction Status Date / Time Penicillins Allergy Severe Swelling Verified 03/09/20 16:16 of Lip/Tongue/Throat Sulfa (Sulfonamide Allergy Severe Swelling Verified 03/09/20 16:16 Antibiotics) of Lip/Tongue/Throat Torcan AdvReac Intermediate Muscle Pain Uncoded 03/09/20 16:16 Consultations 03/09/20 15:53 ED Decision to Admit Stat 03/09/20 18:38 Consult Health Information Management Stat 03/09/20 19:22 Consult General Surgery Routine 03/09/20 19:23 Consult Gastroenterology Routine 03/12/20 07:40 Consult Oncology Routine Ordered Studies 03/09/20 20:19 MR MRCP Routine FINDINGS: Small left pleural effusion, unchanged. Large amount of ascites is again noted. Overall, suboptimal study due to the motion artifact. Specifically, the biliary and pancreatic ducts as well as the gallbladder not well visualized. The proximal main pancreatic duct remains dilated up to the level of the pancreatic head mass. This measures up to 8 mm in diameter. Pancreatic head mass measures approximately 2.7 x 1.8 cm. Mild intrahepatic bile duct dilatation within the left hepatic lobe remains unchanged. The common bile duct is normal in caliber. There is severe narrowing within the distal portal vein with chronic occlusion of the splenic vein near the portosplenic confluence. Small amount of thrombus within the portal vein is better appreciated on the same day abdomen and pelvis CT. Infiltration of the omentum consistent with peritoneal carcinomatosis. No hydronephrosis. No definite hepatic or splenic masses. The adrenal glands are unremarkable. Probable punctate stone within the gallbladder. IMPRESSION: 1. Suboptimal study due to motion artifact. However, overall, no significant change compared to the recent CT examination. 2. Redemonstration of the pancreatic head mass with dilatation of the proximal main pancreatic duct. This remains unchanged. 3. Mild left intrahepatic bile duct dilatation remains unchanged. 4. Cholelithiasis. 5. Partial occlusive thrombus within the portosplenic confluence is better appreciated on the same day CT examination. There is also chronic occlusion of the splenic vein. 6. Small left pleural effusion. 7. Peritoneal carcinomatosis in a large amount of ascites. 03/10/20 18:10 CT abd pelvis wo con Stat FINDINGS: Lower chest: There is a small left pleural effusion. There are lower lung zone atelectatic changes Liver: There are low density hepatic capsular implants similar to the prior study. Gallbladder: Cholelithiasis Spleen: Mildly elongated Pancreas: The pancreatic head mass described on the recent study is difficult to discern on this noncontrast study. There is pancreatic ductal dilatation. Adrenal glands: Unremarkable. Kidneys: No renal, ureteral, or bladder calculi are visualized Bowel: There are no transition zones indicate bowel obstruction. There is moderate colonic fecal load. There is no evidence of acute diverticulitis. There are no findings to indicate acute appendicitis. Peritoneum: There is a moderate to large volume of ascites. There are possible low-density peritoneal tumor implants in the pelvis. Vasculature: The abdominal aorta is normal in course and caliber. Adenopathy: None. Pelvic viscera: The bladder, and pelvic viscera are unremarkable. Skeletal structures: No destructive osseous lesions are seen. There are no findings to indicate acute hemorrhage IMPRESSION: 1. Study limited by the lack of intravenous contrast 2. No evidence of bowel obstruction. No evidence of free air 3. No evidence of acute appendicitis. No evidence of acute diverticulitis 4. No renal, ureteral, or bladder calculi identified 5. Cholelithiasis 6. Moderate to large volume of ascites and peritoneal tumor implants 7. No evidence of acute hemorrhage 8. Left pleural effusion 03/11/20 14:00 US paracentesis abd w/image Routine IMPRESSION: Successful ultrasound-guided paracentesis with removal of 4 L ascitic fluid Hospital Course (1) Pulmonary embolism: Bilateral lower lobe pulmonary emboli seen on CT chest Hypercoagulable state with pancreatic cancer hemodynamically stable no hypoxia given IV heparin--> transitioned to Eliquis Discussed with oncologist at [facility], Dr. Ha Recommend to consult local oncologist for further recommendations evaluated by Oncologist Dr. Cui recommend to transition to Eliquis indefinitely ff up with Oncologist next week as scheduled (2) Abdominal pain: 54-year-old male with history of pancreatic cancer with liver metastasis, on chemotherapy Diabetes type II, hypertension, presenting with chest and abdominal pain Chest pain Due to acute bilateral pulmonary embolism, lower lobes --In the setting of metastatic pancreatic cancer --Hemodynamically stable, saturating well on room air --placed on heparin drip, transitioned to Eliquis --Consulted oncology service management per above -- chest pain resolved Abdominal pain Multifactorial: Large volume ascites, with peritoneal carcinomatosis --Discussed with GI service --Agree with ultrasound-guided paracentesis -- 03/11/20 : Status post ultrasound-guided paracentesis, draining 4 L Per radiologist, there is at least 3 L of residual ascites --Follow-up ascites fluid studies- microbiology and pathology --Dilaudid as needed--> changed to PO Fentanyl patch increased from 50 to 62mcg --Oncologist consulted Partial SMV thrombosis -- heparin drip given, transitioned to Eliquis Pancreatic cancer with liver metastasis, with pancreatic duct dilatation --Discussed with GI, no plans for ERCP at this point Diabetes type 2 --A1c 9.4 last August --Usually on Jardiance, glipizide --Continue insulin sliding scale --Consulted pharmacy glycemic control Hypertension -- Blood Pressure on the lower side Hold valsartan, hydrochlorothiazide DVT prophylaxis -- Eliquis Disposition -- Lives at home with Plan of care discussed with patient and in detail and at length All questions were answered He is understanding and agreeable, comfortable plan of care Total Time Total Time Spent Total Time Spent (In Minutes): > 30 MINUTES Discharge Plan Discharge Items Patient Disposition: Home - Self-Care Reason For Visit: BILATERAL PES, PARTIAL OCCLUSIVE SMV THROMBOSIS Discharge Diagnosis: MALIGNANT ASCITES (FLUID IN THE ABDOMEN SECONDARY TO UNDERLYING PANCREATIC CANCER) Condition on Discharge: Good Activity: Resume your previous activity Activity Comment: GRADUALLY TOLERATED Driving/Machine Use: NO DRIVING WHILE TAKING DILAUDID, OXYCODONE Non-emergency contact: Primary Care Provider and Oncologist Call non-emergency contact if: you have any medication questions, your symptoms worsen, your pain is not controlled, your pain is worsening, your pain is unusual for you and your pain is concerning for you Follow-up/Referrals: Felipe Carmona PA-C [Primary Care Provider] - 03/16/20 1:45 pm (Please follow up with Felipe Carmona PA-C on Sunday03/16/20 at 1:45 pm. Please arrive to the office 15 minutes early for your appointment. If you are unable to keep this appointment, please call the office to reschedule at [phone]. ) Diet: Carb Consistent or DM2 and Heart Healthy Addtl Attending Provider Instructions: PLEASE REVIEW YOUR NEW MEDICATION LIST AND FOLLOW INSTRUCTIONS CAREFULLY. YOUR NEW MEDICATIONS INCLUDE: ELIQUIS- BLOOD THINNER FOR TREATMENT OF BLOOD CLOT 10MG TWICE A DAY FROM EVENING OF 03/13/2020 TO MORNING OF 03/19/2020, THEN 5MG TWICE A DAY FROM EVENING OF 03/19/2020, ONWARDS DILAUDID- FOR ABDOMINAL PAIN PROTONIX- FOR HEARTBURN FENTANYL PATCH INCREASED FROM 50MCG TO 62MCG STOP VALSARTAN/HCTZ- YOUR BLOOD PRESSURE IS STABLE TAKE A LAXATIVE DAILY. RETURN TO THE ER IMMEDIATELY FOR EVALUATION IF YOU SUSTAIN ANY HEAD TRAUMA. WATCH OUT FOR SIGNS OF BLEEDING. IF PRESENT, CALL YOUR PRIMARY CARE PHYSICIAN IMMEDIATELY. CALL PRIMARY CARE PHYSICIAN, OR ONCOLOGIST, OR RETURN TO THE ER IF WITH WORSENING OF SYMPTOMS, INCLUDING ABDOMINAL DISTENTION, PAIN, NAUSEA/VOMITING, POOR APPETITE, WEAKNESS, FEVER/CHILLS. FOLLOW UP WITH YOUR PRIMARY CARE PHYSICIAN IN 1 WEEK. FOLLOW UP WITH YOUR ONCOLOGIST NEXT WEEK SCHEDULED. Pending Studies at Discharge: No Stand-Alone Forms: My [employer], Smoking Cessation Medications and DC Order Prescriptions: New Eliquis 5 mg Tablet 10 mg PO BID Qty: 24 RF: 0 Eliquis 5 mg tablet 5 mg PO BID Qty: 60 RF: 1 hydromorphone [Dilaudid] 4 mg tablet 4 mg PO Q6H PRN (Reason: SEVERE PAIN) Qty: 20 RF: 0 pantoprazole 40 mg Tablet,Delayed Release (Dr/Ec) 40 mg PO QAM Qty: 30 RF: 1 calcium carbonate [Tums] 200 mg calcium (500 mg) Tablet,Chewable 1,000 mg PO Q4H PRN (Reason: dyspepsia) Qty: 10 RF: 0 fentanyl 62.5 mcg/hour patch 72 hour 1 patch transdermal Q72H Qty: 10 RF: 0 fentanyl 12 mcg/hr patch 72 hour 1 patch transdermal Q72H Qty: 10 RF: 0 Continued Jardiance 10 mg Tablet 10 mg PO QAM RF: 0 metoclopramide HCl 10 mg Tablet 10 mg PO Q6H PRN (Reason: Nausea) RF: 0 atorvastatin 20 mg tablet 20 mg PO QAM RF: 0 docusate sodium [Col-Rite] 100 mg capsule 100 mg PO BID Qty: 60 RF: 0 glipizide 5 mg tablet 5 mg PO DAILY RF: 0 oxycodone 10 mg tablet 10 mg PO .Q4-6HRS PRN (Reason: Pain) RF: 0 ondansetron 4 mg tablet,disintegrating 4 mg PO Q8H PRN (Reason: Nausea And Vomiting) RF: 0 Discontinued valsartan-hydrochlorothiazide 160-25 mg tablet 1 tab PO QAM RF: 0 fentanyl 25 mcg/hr patch 72 hour 50 mcg topical [id number] RF: 0 Discharge Orders: Discharge Order (Routine); Ordered 03/13/20 Ordered By: Norbert Rasmussen/Other Patient Handouts: High Blood Sugar (Hyperglycemia), Hypoglycemia (Low Blood Sugar), Managing Type 2 Diabetes Admission Data Admit Date/Time: 03/09/20 17:35 Attending Provider: Norbert Roy Admit Provider: Veronica Arciniega Primary Care Provider: Felipe Carmona Other Providers: Veronica Arciniega ; Deejay Nassar ; Yumiko Lindsay ; Alo Sotomayor V. Other Interventions: Discharge Summary Assessment (RN) Last Done: 03/13/20 11:06
== END 2020-03-13 13:36 | disposition home or self-care (01) | DRG 435 ==
LOC: ED 14:16 → 2S 17:35 → SUATTDRO 17:35 → 2S 18:07